=== PATIENT | male | born 1945 | race Caucasian/White ===

== ENCOUNTER 2016-06-23 06:45 | Inpatient (IN) | payer MEDICARE ==
--- NOTE | 2016-05-18 10:08 | NUR ---
PMH, allergies, meds reviewed and documented. Preop and DOS instructions given and handouts of shower instructions with CHG soap, medications to stop before surgery, Surgical Services pamphlet, and my contact information.
--- NOTE | 2016-06-17 11:01 | NUR ---
Abnormal labs shown to Dr Santoyo, including A1C of 8.6 as well as CBC, CMP from 06-02-16 and 04-29-16. Dr Santoyo wishes patient to have A1C below 7.5 before surgery and for patient to continue to take Boost and eat eggs and beans. I did notify the patient of this and set the patient up for an appointment with Dr Butler tomorrow. Dr Liriano office has also been notified.
--- NOTE | 2016-06-19 10:32 | NUR ---
Proceed with surgery Dr Santoyo notified that patient did see Dr Butler this week and after reviewing his blood sugar records from home and adjusting some medications Dr Butler has cleared the patient for surgery. Dr Santoyo notified of what his recorded blood sugar averages were as documented by Dr Butler and states it is ok to proceed with surgery on 06-23-16.
[2016-06-23] VITALS (35 sets, daily range): BP systolic 112–152; BP diastolic 55–81; PULSE 73–101; RESP 12–21; TEMP 96.7–98.6; O2SAT 91–97; Ht 176.7 cm; Wt 92.8 kg
[~2016-06-23] VITALS: Ht 176.7 cm; Wt 92.8 kg
[~2016-06-23 06:45] MED LIST: ASPI-914 PO; EMPA10TA PO; FAMOTIDINE 20mg IVPB 50 ML IV ONE; FINA5TAB42 PO; INSU100I21 SQ; INSU100I3 SQ; LATA2.5D7 BOTH EYES; LIDOCAINE 1% (10mg/ml) 2ml SDV SQ ONE; LISI-127 PO; METF10002 PO; METOCLOPRAMIDE 10mg/2ml INJECTION IV ONE; NORMAL SALINE 1,000 ML IV SCH; ROSU20TA PO; TADA5TAB PO
--- OUTSIDE RECORDS SUMMARY | 2016-06-23 06:50 | XMS REPORT | Referral Summary ---
Author Author [facility] Organization [facility] Address Unknown Phone Unavailable Care Team Providers Care Sales/Marketing Name Role Phone Josemanuel Liriano Primary Care Physician [phone] Encounter Date(s): 10/08/15 - 10/08/15 [facility] [address] [place] [address] [place] [address]- [place] Discharge Diagnosis: BPH with obstruction/lower urinary tract symptoms Discharge Diagnosis: Benign essential hypertension Discharge Diagnosis: Type II diabetes mellitus Discharge Diagnosis: Male erectile dysfunction Discharge Diagnosis: FH: hyperlipidemia Discharge Disposition: 01-Home or Self Care Attending Physician: Jonnathan Pagan JR, MD Admitting Physician: Jonnathan Pagan JR, MD Referring Physician: Pete Liriano MD Vital Signs Most recent to 1 oldest [Reference Range]: Temperature Tympanic 36.1 degC [36.6-38.1 degC] *LOW* (10/08/15 8:59 AM) Peripheral Pulse 92 bpm Rate [60-100 bpm] (10/08/15 8:59 AM) Blood Pressure 130/84 mmHg [90-140/60-90 mmHg] (10/08/15 8:59 AM) SpO2 95 % (10/08/15 8:59 AM) Problem List Condition Effective Dates Status Health Status Informant Actinic Active keratosis(Confirmed) Acute URI(Confirmed) Active Benign essential Active hypertension(Confirm ed) BPH (benign Active prostatic hypertrophy) with urinary obstruction(Confirme d) Cellulitis of Active face(Confirmed) Nephropathy, Active diabetic(Confirmed) High Active cholesterol(Confirme d) Impotence, Active organic(Confirmed) Cancer of skin of Active face(Confirmed) Combined Active hyperlipidemia(Confi rmed) Choroidal Active nevus(Confirmed) Nodular prostate Active without urinary obstruction(Confirme d) Nuclear senile Active cataract(Confirmed) Osteoarthritis(Confi Active rmed) Primary Active osteoarthritis of right knee(Confirmed) Primary open angle Active glaucoma (disorder)(Confirmed ) Prostatism(Confirmed Active ) Visit for suture Active removal(Confirmed) Diabetes mellitus Active type 2 without retinopathy(Confirme d) Diabetes mellitus Active type 2, uncontrolled(Confirm ed) Skin ulcer of face, Active limited to breakdown of skin(Confirmed) Allergies, Adverse Reactions, Alerts Substance Reaction Severity Status simvastatin unknown Active Medications acetaminophen 650 mg, Oral, QID, as needed for pain, 0 Refill(s) Start Date: 05/31/15 Status: Ordered aspirin 81 mg oral tablet 81 mg 1 tabs, Oral, Daily, 0 Refill(s) Start Date: 07/19/15 Status: Ordered Cialis 5 mg oral tablet See Instructions, TAKE ONE TABLET BY MOUTH DAILY, # 30 tabs, 8 Refill(s), eRx: [facility] #[id number], TAKE ONE TABLET BY MOUTH DAILY Start Date: 03/25/15 Status: Ordered Crestor 10 mg oral tablet 5 mg 0.5 tabs, Oral, Daily, takes it 5 days/week, # 45 tabs, 3 Refill(s) Start Date: 07/19/15 Stop Date: 07/13/16 Status: Ordered finasteride 5 mg oral tablet 5 mg 1 tabs, Oral, Daily, at bedtime, # 90 tabs, 0 Refill(s), Pharmacy: [id number], 1 tabs Oral Daily,Instr:at bedtime Start Date: 08/28/15 Status: Ordered ibuprofen 400 mg, Oral, Bedtime (once a day), for right knee pain, 0 Refill(s) Start Date: 09/23/15 Status: Ordered Levemir FlexTouch 100 units/mL subcutaneous solution See Instructions, INJECT 30 UNITS SUB-Q. INCREASE BY ONE UNIT PER DAY IF FASTING BLOOD SUGAR IS GREATER THAN 120., # 15 mL, 1 Refill(s), Pharmacy: [facility] [id number], INJECT 30 UNITS SUB-Q. INCREASE BY ONE UNIT PER DAY IF FASTING BLOOD SUGAR I... Start Date: 08/02/15 Status: Ordered lisinopril 5 mg oral tablet 5 mg 1 tabs, Oral, Daily, # 90 tabs, 3 Refill(s), Pharmacy: [facility] [id number], 1 tabs Oral Daily Start Date: 09/23/15 Status: Ordered metFORMIN 500 mg oral tablet, extended release 1,000 mg 2 tabs, Oral, Daily, # 180 tabs, 11 Refill(s), Pharmacy: [id number], 2 tabs Oral Daily,x90 days Start Date: 09/23/15 Stop Date: 09/07/18 Status: Ordered NovoLOG FlexPen 100 units/mL subcutaneous solution See Instructions, INJECT 8 UNITS THREE TIMES A DAY BEFORE MEALS/PLEASE DISPENSE A 90 DAY SUPPLY., # 30 mL, 1 Refill(s), Pharmacy: [facility] [id number], INJECT 8 UNITS THREE TIMES A DAY BEFORE MEALS/PLEASE DISPENSE A 90 DAY SUPPLY. Start Date: 08/02/15 Status: Ordered Xalatan 0.005% ophthalmic solution 1 drops, Eye-Both, Bedtime (once a day), # 2 mL, 5 Refill(s), Pharmacy: [facility] #[id number] Start Date: 11/21/14 Status: Ordered Results No data available for this section Immunizations Vaccine Date Refusal Reason tetanus/diphth/pertuss (Tdap) adult/adol 10/22/06 influenza virus vaccine, inactivated 02/06/15 influenza virus vaccine, live 01/23/13 influenza virus vaccine, live 02/23/12 pneumococcal 13-valent conjugate vaccine 01/31/14 pneumococcal 23-polyvalent vaccine 02/06/15 pneumococcal 23-polyvalent vaccine 10/22/06 tetanus-diphth toxoids (Td) adult/adol 12/28/11 tetanus-diphth toxoids (Td) adult/adol 11/14/96 zoster vaccine live 11/21/07 Procedures Procedure Date Related Diagnosis Body Site Colonoscopic polypectomy1 03/11/15 Cystoscopy 02/06/11 Transrectal needle biopsy of prostate 02/06/11 Urethral dilatation 02/06/11 Colonoscopy2 2006 Colonoscopy 2004 Inguinal herniorrhaphy - unilateral3 1995 Vasectomy 1979 Manipulation and casting of knees 1960 Surgery4 1948 1tubular adenoma 1, diverticulosis, history of prior adenomatous polyps, repeat in 5 years 2003 3left 4left hand laceration repair Social History Social History Type Response Smoking Status Former smoker; Type: Cigarettes; Tobacco use per day: Smoked 2 packs a day; Number of years: 301 1Quit in 1998 Assessment and Plan Extracted from: Title: Ambulatory Patient Education Author: Jonnathan Pagan JR, MD Date : 10/08/15 Follow Up With: Where: When: Pete Liriano [address]; [place], [place] [phone] Business (1) Within 3 to 5 days Comments: Follow Up With: Where: When: Jonnathan Pagan [address]; [place] [address] Business (1) In 1 year 10/07/2016 Comments: Extracted from: Title: Office Visit Note Author: Jonnathan Pagan JR, MD Date: 10/08/15 Assessment/Plan 1.BPH with obstruction/lower urinary tract symptoms Continue finasteride 5 mg once a day. Recheck in my office in one year. PSA a week before next visit. Ordered: Office Visit Level 3 Est 73925 2.Benign essential hypertension Continue lisinopril Ordered: Office Visit Level 3 Est 16693 3.FH: hyperlipidemia Continue Crestor 20 mg daily Ordered: Office Visit Level 3 Est 06153 4.Type II diabetes mellitus ContinuemetforminNovoLog and liver injection Ordered: Office Visit Level 3 Est 39905 5.Male erectile dysfunction Continue Cialis 5 mg daily Ordered: Office Visit Level 3 Est 72500
--- OUTSIDE RECORDS SUMMARY | 2016-06-23 06:50 | XMS REPORT | Referral Summary ---
Author Author [facility] Organization [facility] Address Unknown Phone Unavailable Care Team Providers Care Supervisor [employer]ation Name Role Phone Josemanuel Liriano Primary Care Physician [phone] Encounter VC Date(s): 09/23/15 - 09/23/15 [facility] [address] [place] [address] [[email or web address] Discharge Disposition: 01-Home or Self Care Attending Physician: Pete Liriano MD Admitting Physician: Pete Liriano MD Vital Signs Most recent to 1 oldest [Reference Range]: Temperature Tympanic 36.1 degC [36.6-38.1 degC] *LOW* (09/23/15 7:21 AM) Peripheral Pulse 100 bpm Rate [60-100 bpm] (09/23/15 7:21 AM) Blood Pressure 143/66 mmHg [90-140/60-90 mmHg] *HI* (09/23/15 7:21 AM) Problem List Condition Effective Dates Status [...] DAILY, # 30 tabs, 8 Refill(s), eRx: [facility] #[id number], TAKE ONE TABLET BY MOUTH DAILY Start Date: 03/25/15 Status: Ordered Crestor 10 mg oral tablet 5 mg 0.5 tabs, Oral, Daily, takes it 5 days/week, # 45 tabs, 3 Refill(s) Start Date: 07/19/15 Stop Date: 07/13/16 Status: Ordered finasteride 5 mg oral tablet 5 mg 1 tabs, Oral, Daily, at bedtime, # 90 tabs, 0 Refill(s), Pharmacy: [facility] [id number], 1 tabs Oral Daily,Instr:at bedtime Start Date: 08/28/15 Status: Ordered ibuprofen 400 mg, Oral, Bedtime (once a day), for right knee pain, 0 Refill(s) Start Date: 09/23/15 Status: Ordered Levemir FlexTouch 100 units/mL subcutaneous solution See Instructions, INJECT 30 UNITS SUB-Q. INCREASE BY ONE UNIT PER DAY IF FASTING BLOOD SUGAR IS GREATER THAN 120., # 15 mL, 1 Refill(s), Pharmacy: [facility] [id number], INJECT 30 UNITS SUB-Q. INCREASE BY ONE UNIT PER DAY IF FASTING BLOOD SUGAR I... Start Date: 08/02/15 Status: Ordered lisinopril 5 mg oral tablet 5 mg 1 tabs, Oral, Daily, # 90 tabs, 3 Refill(s), Pharmacy: [facility] [id number], 1 tabs Oral Daily Start Date: 09/23/15 Status: Ordered metFORMIN 500 mg oral tablet, extended release 1,000 mg 2 tabs, Oral, Daily, # 180 tabs, 11 Refill(s), Pharmacy: [facility] [id number], 2 tabs Oral Daily,x90 days Start Date: 09/23/15 Stop Date: 09/07/18 Status: Ordered NovoLOG FlexPen 100 units/mL subcutaneous solution See Instructions, INJECT 8 UNITS THREE TIMES A DAY BEFORE MEALS/PLEASE DISPENSE A 90 DAY SUPPLY., # 30 mL, 1 Refill(s), Pharmacy: [id number], INJECT 8 UNITS THREE TIMES A DAY BEFORE MEALS/PLEASE DISPENSE A 90 DAY SUPPLY. Start Date: 08/02/15 Status: Ordered Xalatan 0.005% ophthalmic solution 1 drops, Eye-Both, Bedtime (once a day), # 2 mL, 5 Refill(s), Pharmacy: [facility] #[id number] Start Date: 11/21/14 Status: Ordered Results Chemistry Most recent to 1 oldest [Reference Range]: Sodium Lvl [135-144 138 mEq/L mEq/L] (09/23/15 8:07 AM) Potassium Lvl 4.6 mEq/L [3.5-5.2 mEq/L] (09/23/15 8:07 AM) Chloride [99-111 106 mEq/L mEq/L] (09/23/15 8:07 AM) CO2 [23-31 mEq/L] 25 mEq/L (09/23/15 8:07 AM) AGAP [3-20] 7 (09/23/15 8:07 AM) BUN [8-26 mg/dL] 15 mg/dL (09/23/15 8:07 AM) Glucose Lvl [70-99 201 mg/dL mg/dL] *HI* (09/23/15 8:07 AM) Creatinine Lvl 0.93 mg/dL [0.72-1.25 mg/dL] (09/23/15 8:07 AM) eGFR [>60 mL/min] >60 mL/min 1 (09/23/15 8:07 AM) Calcium Lvl 9.7 mg/dL [8.9-10.5 mg/dL] (09/23/15 8:07 AM) Trig [0-149 mg/dL] 286 mg/dL *HI* (09/23/15 8:07 AM) Hgb A1c [4.1-5.6 %] 6.8 % *HI* (09/23/15 8:07 AM) eAvg Glucose 148.5 mg/dL (09/23/15 8:07 AM) 1Result Comment: Multiply eGFR results by 1.21 for race. Immunizations Vaccine Date Refusal Reason tetanus/diphth/pertuss (Tdap) [...] prior adenomatous polyps, repeat in 5 years 2a2003 3left 4left hand laceration repair Social History Social History Type Response Smoking Status Former smoker; Type: Cigarettes; Tobacco use per day: Smoked 2 packs a day; Number of years: 301 1Quit in 1998 Assessment and Plan Extracted from: Title: Ambulatory Patient Education Author: Pete Liriano MD Date: 09/22 Home Health Care Diabetes and Exercise Exercising regularly is important. It is not just about losing weight. It has many health benefits, such as: Improving your overall fitness, flexibility, and endurance. Increasing your bone density. Helping with weight control. Decreasing your body fat. Increasing your muscle strength. Reducing stress and tension. Improving your overall health. People with diabetes who exercise gain additional benefits because exercise: Reduces appetite. Improves the body's use of blood sugar (glucose). Helps lower or control blood glucose. Decreases blood pressure. Helps control blood lipids (such as cholesterol and triglycerides). Improves the body's use of the hormone insulin by: Increasing the body's insulin sensitivity. Reducing the body's insulin needs. Decreases the risk for heart disease because exercising: Lowers cholesterol and triglycerides levels. Increases the levels of good cholesterol (such as high-density lipoproteins [HDL]) in the body. Lowers blood glucose levels. YOUR ACTIVITY PLAN Choose an activity that you enjoy, and set realistic goals. To exercise safely, you should begin practicing any new physical activity slowly, and gradually increase the intensity of the exercise over time. Your health care provider or wellness educator can help create an activity plan that works for you. General recommendations include: Encouraging children to engage in at least 60 minutes of physical activity each day. Stretching and performing strength training exercises, such as yoga or weight lifting, at least 2 times per week. Performing a total of at least 150 minutes of moderate-intensity exercise each week, such as brisk walking or water aerobics. Exercising at least 3 days per week, making sure you allow no more than 2 consecutive days to pass without exercising. Avoiding long periods of inactivity (90 minutes or more). When you have to spend an extended period of time sitting down, take frequent breaks to walk or stretch. RECOMMENDATIONS FOR EXERCISING WITH TYPE 1 OR TYPE 2 DIABETES Check your blood glucose before exercising. If blood glucose levels are greater than 240 mg/dL, check for urine ketones. Do not exercise if ketones are present. Avoid injecting insulin into areas of the body that are going to be exercised. For example, avoid injecting insulin into: The arms when playing tennis. The legs when jogging. Keep a record of: Food intake before and after you exercise. Expected peak times of insulin action. Blood glucose levels before and after you exercise. The type and amount of exercise you have done. Review your records with your health care provider. Your health care provider will help you to develop guidelines for adjusting food intake and insulin amounts before and after exercising. If you take insulin or oral hypoglycemic agents, watch for signs and symptoms of hypoglycemia. They include: Dizziness. Shaking. Sweating. Chills. Confusion. Drink plenty of water while you exercise to prevent dehydration or heat stroke. Body water is lost during exercise and must be replaced. Talk to your health care provider before starting an exercise program to make sure it is safe for you. Remember, almost any type of activity is better than none. This information is not intended to replace advice given to you by your health care provider. Make sure you discuss any questions you have with your health care provider. Document Released: 06/18/2004 Document Revised: 04/19/2015 Document Reviewed: ExitCare Patient Information 2016 [facility]. No follow up information was provided. Extracted from: Title: diabetes, right knee pain, Author: Pete Liriano MD Date: HTN Impression and Plan Diagnosis Pain in right knee (NGP66-KP M25.561, Working, Medical). Diabetes mellitus type 2, uncontrolled (FRB01-YE E11.65, Working, Medical). Benign essential hypertension (JDJ03-KU I10, Working, Medical). Combined hyperlipidemia (LMB39-WF E78.2, Working, Medical). Diabetic nephropathy (ZYQ04-ZP E11.21, Working, Medical). Plan: 1) Stop your Ibuprofen. 2) Increase your Metformin to 2 daily. 3) Start Lisinopril 5 mg daily. 4) Check your BP at home. 5) See me back in 6 weeks and as needed. 6) Fasting lab in 2 weeks. 7) Continue your other meds the same. 8) Keep up your healthy diet and daily exercise.. Orders Orders (Selected) Outpatient Orders Ordered Office Visit Level 4 Est 78265: Future (On Hold) BMP: Hgb A1c: Triglycerides: Prescriptions Prescribed lisinopril 5 mg oral tablet: 5 mg=1 tabs, Oral, Daily, 90 tabs, 3 Refill(s) metFORMIN 500 mg oral tablet, extended release: 1,000 mg=2 tabs, Oral, Daily, for 90 days, 180 tabs, 11 Refill(s). Dx/Order Association Plan: Diagnosis: Benign essential hypertension Comment: Ordered: Office Visit Level 4 Est 26729; 09/23/15 7:46:00 CDT, Diabetes mellitus type 2, uncontrolled | Pain in right knee | Diabetic nephropathy | Benign essential hypertension | Combined hyperlipidemia Diagnosis: Combined hyperlipidemia Comment: Ordered: Office Visit Level 4 Est 37016; 09/23/15 7:46:00 CDT, Diabetes mellitus type 2, uncontrolled | Pain in right knee | Diabetic nephropathy | Benign essential hypertension | Combined hyperlipidemia Diagnosis: Diabetes mellitus type 2, uncontrolled Comment: Ordered: Office Visit Level 4 Est 73643; 09/23/15 7:46:00 CDT, Diabetes mellitus type 2, uncontrolled | Pain in right knee | Diabetic nephropathy | Benign essential hypertension | Combined hyperlipidemia Diagnosis: Diabetic nephropathy Comment: Ordered: Office Visit Level 4 Est 28773; 09/23/15 7:46:00 CDT, Diabetes mellitus type 2, uncontrolled | Pain in right knee | Diabetic nephropathy | Benign essential hypertension | Combined hyperlipidemia Diagnosis: Pain in right knee Comment: Ordered: Office Visit Level 4 Est 42704; 09/23/15 7:46:00 CDT, Diabetes mellitus type 2, uncontrolled | Pain in right knee | Diabetic nephropathy | Benign essential hypertension | Combined hyperlipidemia Diagnosis: Diabetes mellitus type 2, uncontrolled Comment: Diagnosis: Benign essential hypertension Comment: Diagnosis: Combined hyperlipidemia Comment: Additional Orders: Comment: Ordered: ibuprofen,400 mg, Oral, Bedtime (once a day), for right knee pain, 0 Refill(s) Ordered: lisinopril 5 mg oral tablet,5 mg 1 tabs, Oral, Daily, # 90 tabs, 3 Refill(s), Pharmacy: [facility] [id number], 1 tabs Oral Daily Ordered: metFORMIN 500 mg oral tablet, extended release,1,000 mg 2 tabs, Oral, Daily, # 180 tabs, 11 Refill(s), Pharmacy: [facility] [id number], 2 tabs Oral Daily,x90 days End of Orders ."
--- OUTSIDE RECORDS SUMMARY | 2016-06-23 06:50 | XMS REPORT | Referral Summary ---
Author Author [facility] Organization [facility] Address Unknown Phone Unavailable Care Team Providers Care Environmental Education Specialist Name Role Phone Josemanuel Liriano Primary Care Physician [phone] Encounter VC Date(s): 11/20/14 - 11/20/14 [facility] [address] [facility] [place] , [place] [address] Discharge Diagnosis: POAG (primary open-angle glaucoma) Discharge Diagnosis: Nuclear senile cataract Discharge Disposition: 01-Home or Self Care Attending Physician: Sridhar Harden MD Admitting Physician: Sridhar Harden MD Referring Physician: Pete Liriano MD Vital Signs No data available for this section Problem List Condition Effective Dates Status Health [...] needed for pain, 0 Refill(s) Start Date: 2/19/16 Status: Ordered aspirin 325 mg, Oral, BID, X 6 weeks, 0 Refill(s) Start Date: 05/31/15 Stop Date: 07/17/15 Status: Ordered Cialis 5 mg oral tablet See Instructions, TAKE ONE TABLET BY MOUTH DAILY, # 30 tabs, 8 Refill(s), eRx: [facility] #[id number], TAKE ONE TABLET BY MOUTH DAILY Start Date: 03/25/15 Status: Ordered Crestor 20 mg oral tablet 0.25 tabs, Oral, 3x/Wk, # 30 tabs, 0 Refill(s), Pharmacy: [facility] # [id number], 0.25 tabs Oral 3x/Wk Start Date: 05/03/14 Status: Ordered finasteride 5 mg oral tablet See Instructions, TAKE ONE TABLET BY MOUTH EVERY NIGHT AT BEDTIME, # 90 tabs, eRx: [facility] #[id number], TAKE ONE TABLET BY MOUTH EVERY NIGHT AT BEDTIME Start Date: 05/15/15 Status: Ordered Jardiance 10 mg oral tablet 10 mg 1 tabs, Oral, qAM, # 90 tabs, 3 Refill(s), Pharmacy: [facility] # [id number], 1 tabs Oral qAM Start Date: 05/10/15 Status: Ordered Levemir FlexTouch 100 units/mL subcutaneous solution See Instructions, INJECT 30 UNITS SUB-Q. INCREASE BY ONE UNIT PER DAY IF FASTING BLOOD SUGAR IS GREATER THAN 120., # 9 unknown unit, 5 Refill(s), eRx: [facility] #[id number], INJECT 30 UNITS SUB-Q. INCREASE BY ONE UNIT PER DAY IF FASTING BLOOD SUGAR... Start Date: 03/25/15 Status: Ordered lisinopril 10 mg oral tablet 10 mg 1 tabs, Oral, Daily, 0 Refill(s) Start Date: 05/31/15 Status: Ordered metFORMIN 1000 mg oral tablet 1,000 mg 1 tabs, Oral, BID, with meals, X 90 days, # 180 tabs, 3 Refill(s), Instruct patient to schedule an appt. with Dr. Liriano, 1 tabs Oral BID,Instr: with meals Start Date: 02/06/15 Stop Date: 02/01/16 Status: Ordered MiraLax 17 g, Oral, Daily, 0 Refill(s) Start Date: 05/31/15 Status: Ordered NovoLOG FlexPen 100 units/mL subcutaneous solution See Instructions, INJECT 8 UNITS THREE TIMES A DAY BEFORE MEALS, # 15 unknown unit, 2 Refill(s), eRx: [facility] #[id number], INJECT 10 UNITS THREE TIMES A DAY BEFORE MEALS Start Date: 03/25/15 Status: Ordered traMADol 50 mg oral tablet 1-2 tabs, Oral, q6hr, as needed for pain, 0 Refill(s) Start Date: 05/31/15 Status: Ordered Xalatan 0.005% ophthalmic solution 1 drops, Eye-Both, Bedtime (once a day), # 2 mL, 5 Refill(s), Pharmacy: [facility] #[id number] Start Date: 11/21/14 Status: Ordered Results No [...] 02/06/11 Urethral dilatation 02/06/11 Colonoscopy2 2006 Colonoscopy 2003 Inguinal herniorrhaphy - unilateral3 1995 Vasectomy 1979 [...] Extracted from: Title: Ambulatory Patient Education Author: Sridhar Harden MD Date: 11/20/14 Ophthalmology Glaucoma Glaucoma happens when the fluid pressure in the eyeball is too high. The pressure cannot stay high for too long, or the eyeball may become damaged. Signs of glaucoma include: Having a hard time seeing in a dark room after being in a bright one. Having trouble seeing things out to the sides of you. Blurry sight. Seeing bright white lights or colors in front of your eyes. Headaches. Feeling sick to your stomach (nauseous) or throwing up (vomiting). Sudden vision loss. Glaucoma testing is an important part of taking care of your eyesight. HOME CARE Always use your eyedrops or pills as told by your doctor. Do not run out. Do not go away from home without your eyedrops or pills. Keep your appointments. Always tell a new doctor that you have glaucoma and how long you have had it. Tell the doctor about the eyedrops and pills you take. Do not use eyedrops or pills that have not been prescribed by your doctor. GET HELP RIGHT AWAY IF: You develop severe pain in the affected eye. You develop vision problems. You develop a bad headache in the area around the eye. You feel sick to your stomach or throw up. You start to have problems with the other eye. MAKE SURE YOU: Understand these instructions. Will watch your condition. Will get help right away if you are not doing well or get worse. Document Released: 01/05/2009 Document Revised: 06/20/2012 Document Reviewed: [facility] Patient Information 2015 [employer], [place]. This information is not intended to replace advice given to you by your health care provider. Make sure you discuss any questions you have with your health care provider. No follow up information was provided. Referrals to Other Providers Referred by: Sridhar Harden MD
--- OUTSIDE RECORDS SUMMARY | 2016-06-23 06:50 | XMS REPORT | Referral Summary ---
Author Organization Unknown Address Unknown Phone Unavailable Care Team Providers Care Neighborhood Aide Name Role Phone Josemanuel Liriano Primary Care Physician [phone] Encounter [facility] [id number] Date(s): 06/04/14 - 06/04/14 Via [facility]LO Moody, Jeremy, Family Medicine [address] [place] [address] JONAS Mercedes [id number] Discharge Diagnosis: Nephropathy, diabetic Discharge Diagnosis: Benign essential hypertension Discharge Diagnosis: Combined hyperlipidemia Discharge Diagnosis: BPH (benign prostatic hypertrophy) with urinary obstruction Discharge Diagnosis: Diabetes mellitus type 2, uncontrolled Discharge Disposition: Home or Self Care Attending Physician: Pete Liriano MD Admitting Physician: Pete Liriano MD Vital Signs Most recent to 1 oldest [Reference Range]: Temperature Tympanic 35.6 degC [36.6-38.1 degC] *LOW* (06/04/14 7:07 AM) Peripheral Pulse 95 bpm Rate [60-100 bpm] (06/04/14 7:07 AM) Blood Pressure 144/77 mmHg [90-140/60-90 mmHg] *HI* (06/04/14 7:07 AM) Problem List Condition Effective Dates Status Health Status Informant Actinic Active keratosis(Confirmed) Acute URI(Confirmed) Active Benign essential Active hypertension(Confirm ed) BPH (benign Active prostatic hypertrophy) with urinary obstruction(Confirme d) Cellulitis of Active face(Confirmed) Nephropathy, Active diabetic(Confirmed) High Active cholesterol(Confirme d) Impotence, Active organic(Confirmed) Cancer of skin of Active face(Confirmed) Combined Active hyperlipidemia(Confi rmed) Nodular prostate Active without urinary obstruction(Confirme d) Nuclear senile Active cataract(Confirmed) Osteoarthritis(Confi Active rmed) Primary open angle Active glaucoma (disorder)(Confirmed ) Prostatism(Confirmed Active ) Visit for suture Active removal(Confirmed) Diabetes mellitus Active type 2, uncontrolled(Confirm ed) Skin ulcer of face, Active limited to breakdown of skin(Confirmed) Allergies, Adverse Reactions, Alerts Substance Reaction Severity Status simvastatin unknown Active Medications Aspirin Low Dose 81 mg, Oral, Daily, 0 Refill(s) Start Date: 10/02/13 Status: Ordered Cialis 5 mg oral tablet See Instructions, TAKE ONE TABLET BY MOUTH EVERY DAY, # 90 tabs, 1 Refill(s), eRx: [facility] #[id number], TAKE ONE TABLET BY MOUTH EVERY DAY Special Instructions: TAKE ONE TABLET BY MOUTH EVERY DAY Start Date: 01/22/14 Status: Ordered Crestor 20 mg oral tablet 0.25 tabs, Oral, 3x/Wk, # 30 tabs, 0 Refill(s), Pharmacy: [facility] # [id number], 0.25 tabs Oral 3x/Wk Start Date: 05/03/14 Status: Ordered famotidine 20 mg oral tablet 1 tabs, Oral, BID, as needed for indigestion, 0 Refill(s) Start Date: 10/02/13 Status: Ordered finasteride 5 mg oral tablet 1 tabs, Oral, Bedtime (once a day), # 90 tabs, 1 Refill(s), Pharmacy: [facility] #[id number], 1 tabs Oral Bedtime (once a day),x90 days Start Date: 05/03/14 Stop Date: 10/30/14 Status: Ordered Levemir FlexTouch 100 units/mL subcutaneous solution See Instructions, Inject 40 units subcutaneously every day. Increase by 1 unit daily if FBS > 140., # 15 mL, 0 Refill(s), Pharmacy: [facility] #[id number], Inject 30 units subcutaneously every day. Increase by 1 unit daily if FBS > 120. Special Instructions: Inject 40 units subcutaneously every day. Increase by 1 unit daily if FBS > 140. Start Date: 04/25/14 Status: Ordered lisinopril 20 mg oral tablet 1 tabs, Oral, Daily, 0 Refill(s) Start Date: 02/01/14 Status: Ordered metFORMIN 1000 mg oral tablet See Instructions, 1 TABS ORAL BID,INSTR:WITH MEALS, # 60 tabs, 1 Refill(s), eRx : [facility], 1 TABS ORAL BID,INSTR:WITH MEALS Special Instructions: 1 TABS ORAL BID,INSTR:WITH MEALS Start Date: 03/15/14 Status: Ordered NovoLOG FlexPen 100 units/mL subcutaneous solution 10 units, SubCutaneous, TIDAC, # 15 mL, 11 Refill(s), Pharmacy: [facility] #[id number], 10 units SubCutaneous TIDAC Start Date: 01/31/14 Status: Ordered Xalatan 0.005% ophthalmic solution 1 drops, Eye-Both, Bedtime (once a day), prescribed elsewhere, # 2 mL, 3 Refill( s), Pharmacy: [facility] Special Instructions: prescribed elsewhere Start Date: 12/18/13 Stop Date: 12/13/14 Status: Ordered Results No data available for this section Immunizations Vaccine Date Refusal Reason tetanus/diphth/pertuss (Tdap) adult/adol 10/22/06 influenza virus vaccine, live 01/23/13 influenza virus vaccine, live 02/23/12 pneumococcal 13-valent conjugate vaccine 01/31/14 pneumococcal 23-polyvalent vaccine 10/22/06 tetanus-diphth toxoids (Td) adult/adol 12/28/11 tetanus-diphth toxoids (Td) adult/adol 11/14/96 zoster vaccine live 11/21/07 Procedures Procedure Date Related Diagnosis Body Site Cystoscopy 02/06/11 Transrectal needle biopsy of prostate 02/06/11 Urethral dilatation 02/06/11 Colonoscopy1 2006 Colonoscopy 2004 Inguinal herniorrhaphy - unilateral2 1995 Vasectomy 1980 Manipulation and casting of knees 1961 Surgery3 1949 1and 2003 2left 3left hand laceration repair Social History Social History Type Response Smoking Status Former smoker; Type: Cigarettes; Tobacco use per day: Smoked 2 packs a day; Number of years: 301 1Quit in 1998 Assessment and Plan Extracted from: Title: Ambulatory Patient Education Author: Pete Liriano MD Date: 06/04 Family Medicine Diabetes and Foot Care Diabetes may cause you to have a poor blood supply (circulation ) to your legs and feet. Because of this, the skin may be thinner, break easier, and heal more slowly. You also may have nerve damage in your legs and feet causing decreased feeling. You may not notice minor injuries to your feet that could lead to serious problems or infections. Taking care of your feet is one of the most important things you can do for yourself. HOME CARE INSTRUCTIONS Do not go barefoot. Bare feet are easily injured. Check your feet daily for blisters, cuts, and redness. Wash your feet with warm water (not hot) and mild soap. Pat your feet and between your toes until completely dry. Apply a moisturizing lotion that does not contain alcohol or petroleum jelly to the dry skin on your feet and to dry brittle toenails. Do not put it between your toes. Trim your toenails straight across. Do not dig under them or around the cuticle. Do not cut corns or calluses, or try to remove them with medicine. Wear clean cotton socks or stockings every day. Make sure they are not too tight. Do not wear knee high stockings since they may decrease blood flow to your legs. Wear leather shoes that fit properly and have enough cushioning. To break in new shoes, wear them just a few hours a day to avoid injuring your feet. Wear shoes at all times, even in the house. Do not cross your legs. This may decrease the blood flow to your feet. If you find a minor scrape, cut, or break in the skin on your feet, keep it and the skin around it clean and dry. These areas may be cleansed with mild soap and water. Do not use peroxide, alcohol, iodine or Merthiolate. When you remove an adhesive bandage, be sure not to harm the skin around it. If you have a wound, look at it several times a day to make sure it is healing. Do not use heating pads or hot water bottles. [place] can occur. If you have lost feeling in your feet or legs, you may not know it is happening until it is too late. Report any cuts, sores or bruises to your caregiver. Do not wait! SEEK MEDICAL CARE IF: You have an injury that is not healing or you notice redness, numbness, burning, or tingling. Your feet always feel cold. You have pain or cramps in your legs and feet. SEEK IMMEDIATE MEDICAL CARE IF: There is increasing redness, swelling, or increasing pain in the wound. There is a red line that goes up your leg. Pus is coming from a wound. You develop an unexplained oral temperature above 102 F (38.9 C), or as your caregiver suggests. You notice a bad smell coming from an ulcer or wound. MAKE SURE YOU: Understand these instructions. Will watch your condition. Will get help right away if you are not doing well or get worse. Document Released: 03/26/2001 Document Revised: 06/20/2012 Document Reviewed: ExitCare Patient Information 2014 [facility]. No follow up information was provided. Extracted from: Title: DM, HTN Author: Pete Liriano MD Date: 06/04/14 Impression and Plan Diagnosis Nephropathy, diabetic (ICD9 250.40, Discharge, Medical). Diabetes mellitus type 2, uncontrolled (ICD9 250.02, Discharge, Medical). Combined hyperlipidemia (ICD9 272.2, Discharge, Medical). BPH (benign prostatic hypertrophy) with urinary obstruction (ICD9 600.01, Discharge, Medical). Benign essential hypertension (ICD9 401.1, Discharge, Medical). Plan: Continue healthy diet and exercise. Continue your current meds. See me in 2 months and as needed.. Orders Orders (Selected) Outpatient Orders Ordered Office Visit Level 4 Est [id number]: . Dx/Order Association Plan: Diagnosis: BPH (benign prostatic hypertrophy) with urinary obstruction Comment: Ordered: Office Visit Level 4 Est [id number]; 06/04/14 7:29:00 [employer], Diabetes mellitus type 2, uncontrolled | Combined hyperlipidemia | Benign essential hypertension | Nephropathy, diabetic | BPH (benign prostatic hypertrophy) with urinary obstruction Diagnosis: Benign essential hypertension Comment: Ordered: Office Visit Level 4 Est [id number]; 06/04/14 7:29:00 [employer], Diabetes mellitus type 2, uncontrolled | Combined hyperlipidemia | Benign essential hypertension | Nephropathy, diabetic | BPH (benign prostatic hypertrophy) with urinary obstruction Diagnosis: Combined hyperlipidemia Comment: Ordered: Office Visit Level 4 Est [id number]; 06/04/14 7:29:00 [employer], Diabetes mellitus type 2, uncontrolled | Combined hyperlipidemia | Benign essential hypertension | Nephropathy, diabetic | BPH (benign prostatic hypertrophy) with urinary obstruction Diagnosis: Diabetes mellitus type 2, uncontrolled Comment: Ordered: Office Visit Level 4 Est [id number]; 06/04/14 7:29:00 [employer] ATT[employer], Diabetes mellitus type 2, uncontrolled | Combined hyperlipidemia | Benign essential hypertension | Nephropathy, diabetic | BPH (benign prostatic hypertrophy) with urinary obstruction Diagnosis: Nephropathy, diabetic Comment: Ordered: Office Visit Level 4 Est [id number]; 06/04/14 7:29:00 [employer] ATT[employer], Diabetes mellitus type 2, uncontrolled | Combined hyperlipidemia | Benign essential hypertension | Nephropathy, diabetic | BPH (benign prostatic hypertrophy) with urinary obstruction End of Orders ."
--- OUTSIDE RECORDS SUMMARY | 2016-06-23 06:50 | XMS REPORT | Referral Summary ---
Author Author [facility] Organization [facility] Address Unknown Phone Unavailable Care Team Providers Care Horologist Name Role Phone Josemanuel Liriano Primary Care Physician [phone] Encounter Date(s): 04/29/16 - 04/29/16 [facility] [address] [place] [id number] Discharge Diagnosis: Mixed hyperlipidemia Discharge Diagnosis: Left ankle pain Discharge Diagnosis: Right knee pain Discharge Diagnosis: Male erectile dysfunction Discharge Diagnosis: Benign essential hypertension Discharge Diagnosis: Effusion of right knee Discharge Diagnosis: Diabetes mellitus type 2 without retinopathy Discharge Disposition: 01-Home or Self Care Attending Physician: Pete Liriano MD Admitting Physician: Pete Liriano MD Vital Signs Most recent to 1 oldest [Reference Range]: Temperature Tympanic 36.0 degC [36.6-38.1 degC] *LOW* (04/29/16 8:16 AM) Peripheral Pulse 92 bpm Rate [60-100 bpm] (04/29/16 8:16 AM) Respiratory Rate 16 br/min [14-20 br/min] (04/29/16 8:16 AM) Blood Pressure 142/74 mmHg [90-140/60-90 mmHg] *HI* (04/29/16 8:16 AM) Problem List Condition Effective Dates Status [...] 0 Refill(s) Start Date: 07/19/15 Status: Ordered Crestor 10 mg oral tablet 5 mg 0.5 tabs, Oral, Daily, takes it 5 days/week, # 45 tabs, 3 Refill(s) Start Date: 07/19/15 Stop Date: 07/13/16 Status: Ordered finasteride 5 mg oral tablet 5 mg 1 tabs, Oral, Bedtime (once a day), # 90 tabs, 0 Refill(s), Pharmacy: [facility] [id number], 1 tabs Oral Bedtime (once a day) Start Date: 04/15/16 Status: Ordered ibuprofen 400 mg, Oral, Bedtime (once a day), for right knee pain, 0 Refill(s) Start Date: 09/23/15 Status: Ordered Levemir FlexTouch 100 units/mL subcutaneous solution See Instructions, INJECT 30 UNITS SUB-Q, INCREASE BY 1 UNIT PER DAY IF FASTING BLOOD SUGAR IS GREATER THAN 120, # 15 mL, eRx: [id number] Start Date: 04/21/16 Status: Ordered lisinopril 5 mg oral tablet 5 mg 1 tabs, Oral, Daily, # 90 tabs, 3 Refill(s), Pharmacy: [facility] [id number], 1 tabs Oral Daily Start Date: 09/23/15 Status: Ordered metFORMIN 500 mg oral tablet, extended release 1,000 mg 2 tabs, Oral, Daily, # 180 tabs, 11 Refill(s), Pharmacy: [facility] [id number], 2 tabs Oral Daily,x90 days Start Date: 09/23/15 Stop Date: 09/07/18 Status: Ordered NovoLOG FlexPen 100 units/mL subcutaneous solution See Instructions, INJECT 8 UNITS THREE TIMES A DAY BEFORE MEALS/PLEASE DISPENSE A 90 DAY SUPPLY., # 30 mL, 1 Refill(s), Pharmacy: [id number], INJECT 8 UNITS THREE TIMES A DAY BEFORE MEALS/PLEASE DISPENSE A 90 DAY SUPPLY. Start Date: 08/02/15 Status: Ordered Xalatan 0.005% ophthalmic solution 1 drops, Eye-Both, Bedtime (once a day), # 2 mL, 5 Refill(s), Pharmacy: [facility] #[id number] Start Date: 11/21/14 Status: Ordered Results Hematology Most recent to 1 oldest [Reference Range]: WBC [5.0-10.0 5.3 10*3/uL 10*3/uL] (04/29/16 8:25 AM) RBC [3.70-5.20] 5.55 *HI* (04/29/16 8:25 AM) Hgb [12.0-16.0 17.2 gm/dL gm/dL] *HI* (04/29/16 8:25 AM) Hct [40.0-54.0 %] 49.5 % (04/29/16 8:25 AM) MCV [80.0-96.0 fL] 89.2 fL (04/29/16 8:25 AM) MCH [26.0-34.0 pg] 31.0 pg (04/29/16 8:25 AM) MCHC [32.0-36.0 34.7 gm/dL gm/dL] (04/29/16 8:25 AM) RDW [0.0-14.5 %] 13.2 % (04/29/16 8:25 AM) Platelet [150-400 192 10*3/uL 10*3/uL] (04/29/16 8:25 AM) MPV [8.8-14.8 fL] 10.8 fL (04/29/16 8:25 AM) Neutrophils [50-70 71 % %] *HI* (04/29/16 8:25 AM) Lymphocytes [20-40 19 % %] *LOW* (04/29/16 8:25 AM) Monocytes [4-8 %] 7 % (04/29/16 8:25 AM) Eosinophils [0-6 %] 3 % (04/29/16 8:25 AM) Basophils [0-2 %] 0 % (04/29/16 8:25 AM) Neutro Absolute 3.78 [2.50-7.00] (04/29/16 8:25 AM) Lymph Absolute 1.00 [1.00-4.00] (04/29/16 8:25 AM) [place] Absolute 0.35 [0.20-0.80] (04/29/16 8:25 AM) Eos Absolute 0.17 [0.00-0.60] (04/29/16 8:25 AM) Baso Absolute 0.02 [0.00-0.30] (04/29/16 8:25 AM) Sed Rate [0-15] 7 (04/29/16 8:25 AM) Chemistry Most recent to 1 oldest [Reference Range]: Sodium Lvl [135-144 137 mEq/L mEq/L] (04/29/16 8:25 AM) Potassium Lvl 4.6 mEq/L [3.5-5.2 mEq/L] (04/29/16 8:25 AM) Chloride [99-111 102 mEq/L mEq/L] (04/29/16 8:25 AM) CO2 [23-31 mEq/L] 25 mEq/L (04/29/16 8:25 AM) AGAP [3-20] 10 (04/29/16 8:25 AM) BUN [8-26 mg/dL] 11 mg/dL (04/29/16 8:25 AM) Glucose Lvl [70-99 251 mg/dL mg/dL] *HI* (04/29/16 8:25 AM) Creatinine Lvl 0.79 mg/dL [0.72-1.25 mg/dL] (04/29/16 8:25 AM) eGFR [>60 mL/min] >60 mL/min 1 (04/29/16 8:25 AM) Calcium Lvl 9.8 mg/dL [8.9-10.5 mg/dL] (04/29/16 8:25 AM) Albumin Lvl [3.4-4.8 4.2 gm/dL gm/dL] (04/29/16 8:25 AM) Total Protein 6.4 gm/dL [6.0-7.6 gm/dL] (04/29/16 8:25 AM) Globulin [1.8-4.0 2.2 gm/dL gm/dL] (04/29/16 8:25 AM) ALT [0-55 U/L] 31 U/L (04/29/16 8:25 AM) AST [5-34 U/L] 17 U/L (04/29/16 8:25 AM) Alk Phos [40-150 95 U/L U/L] (04/29/16 8:25 AM) Bili Total [0.2-1.2 0.8 mg/dL mg/dL] (04/29/16 8:25 AM) Uric Acid [3.5-7.2 3.6 mg/dL mg/dL] (04/29/16 8:25 AM) LDL Direct [0-129 113 mg/dL mg/dL] (04/29/16 8:25 AM) Hgb A1c [4.1-5.6 %] 8.9 % *HI* (04/29/16 8:25 AM) eAvg Glucose 208.7 mg/dL (04/29/16 8:25 AM) 1Result Comment: Multiply eGFR results by 1.21 for race. Immunizations Given and Recorded Vaccine Date Status Refusal Reason tetanus/diphth/pertuss (Tdap) adult/adol 10/22/06 Recorded influenza virus vaccine, inactivated1 01/27/16 Recorded influenza virus vaccine, inactivated 02/06/15 Given influenza virus vaccine, live 01/23/13 Given influenza virus vaccine, live 02/23/12 Given pneumococcal 13-valent conjugate vaccine 01/31/14 Given pneumococcal 23-polyvalent vaccine 02/06/15 Given pneumococcal 23-polyvalent vaccine 10/22/06 Recorded tetanus-diphth toxoids (Td) adult/adol 12/28/11 Given tetanus-diphth toxoids (Td) adult/adol 11/14/96 Given zoster vaccine live 11/21/07 Given 1Result Comment: [01/28/2016] Jason--High dose Procedures Procedure Date Related Diagnosis Body Site Colonoscopic polypectomy1 11/30/15 Cystoscopy 02/06/11 Transrectal needle biopsy of prostate 02/06/11 Urethral dilatation 02/06/11 Colonoscopy2 2006 Colonoscopy 2004 Inguinal herniorrhaphy - unilateral3 1996 Vasectomy 1979 Manipulation and casting of knees 196 Surgery4 1948 1tubular adenoma 1, diverticulosis, history of prior adenomatous polyps, repeat in 5 years 2a2003 3left 4left hand laceration repair Social History Social History Type Response Smoking Status Former smoker; Type: Cigarettes; Tobacco use per day: Smoked 2 packs a day; Number of years: 301 1Quit in 1998 Assessment and Plan Extracted from: Title: Ambulatory Patient Education Author: Pete Liriano MD Date: 04/29 Family Medicine Arthritis, Nonspecific Arthritis is inflammation of a joint. This usually means pain, redness, warmth or swelling are present. One or more joints may be involved. There are a number of types of arthritis. Your caregiver may not be able to tell what type of arthritis you have right away. CAUSES The most common cause of arthritis is the wear and tear on the joint ( osteoarthritis). This causes damage to the cartilage, which can break down over time. The knees, hips, back and neck are most often affected by this type of arthritis. Other types of arthritis and common causes of joint pain include: Sprains and other injuries near the joint. Sometimes minor sprains and injuries cause pain and swelling that develop hours later. Rheumatoid arthritis. This affects hands, feet and knees. It usually affects both sides of your body at the same time. It is often associated with chronic ailments, fever, weight loss and general weakness. Crystal arthritis. Gout and pseudo gout can cause occasional acute severe pain, redness and swelling in the foot, ankle, or knee. Infectious arthritis. Bacteria can get into a joint through a break in overlying skin. This can cause infection of the joint. Bacteria and viruses can also spread through the blood and affect your joints. Drug, infectious and allergy reactions. Sometimes joints can become mildly painful and slightly swollen with these types of illnesses. SYMPTOMS Pain is the main symptom. Your joint or joints can also be red, swollen and warm or hot to the touch. You may have a fever with certain types of arthritis, or even feel overall ill. The joint with arthritis will hurt with movement. Stiffness is present with some types of arthritis. DIAGNOSIS Your caregiver will suspect arthritis based on your description of your symptoms and on your exam. Testing may be needed to find the type of arthritis: Blood and sometimes urine tests. X-ray tests and sometimes CT or MRI scans. Removal of fluid from the joint (arthrocentesis) is done to check for bacteria, crystals or other causes. Your caregiver (or a specialist) will numb the area over the joint with a local anesthetic, and use a needle to remove joint fluid for examination. This procedure is only minimally uncomfortable. Even with these tests, your caregiver may not be able to tell what kind of arthritis you have. Consultation with a specialist (special events fundraiser) may be helpful. TREATMENT Your caregiver will discuss with you treatment specific to your type of arthritis. If the specific type cannot be determined, then the following general recommendations may apply. Treatment of severe joint pain includes: Rest. Elevation. Anti-inflammatory medication (for example, ibuprofen) may be prescribed. Avoiding activities that cause increased pain. Only take nmeg-zvu-[id number] or prescription medicines for pain and discomfort as recommended by your caregiver. Cold packs over an inflamed joint may be used for 10 to 15 minutes every hour. Hot packs sometimes feel better, but do not use overnight. Do not use hot packs if you are diabetic without your caregiver's permission. A cortisone shot into arthritic joints may help reduce pain and swelling. Any acute arthritis that gets worse over the next 1 to 2 days needs to be looked at to be sure there is no joint infection. Long-term arthritis treatment involves modifying activities and lifestyle to reduce joint stress jarring. This can include weight loss. Also, exercise is needed to nourish the joint cartilage and remove waste. This helps keep the muscles around the joint strong. HOME CARE INSTRUCTIONS Do not take aspirin to relieve pain if gout is suspected. This elevates uric acid levels. Only take lhxt-aaf-bsxzqor or prescription medicines for pain, discomfort or fever as directed by your caregiver. Rest the joint as much as possible. If your joint is swollen, keep it elevated. Use crutches if the painful joint is in your leg. Drinking plenty of fluids may help for certain types of arthritis. Follow your caregiver's dietary instructions. Try low-impact exercise such as: Swimming. Water aerobics. Biking. Walking. Morning stiffness is often relieved by a warm shower. Put your joints through regular mgsrl-jb-lwqmyk. SEEK MEDICAL CARE IF: You do not feel better in 24 hours or are getting worse. You have side effects to medications, or are not getting better with treatment. SEEK IMMEDIATE MEDICAL CARE IF: You have a fever. You develop severe joint pain, swelling or redness. Many joints are involved and become painful and swollen. There is severe back pain and/or leg weakness. You have loss of bowel or bladder control. This information is not intended to replace advice given to you by your health care provider. Make sure you discuss any questions you have with your health care provider. Document Released: 05/06/2005 Document Revised: 04/19/2015 Document Reviewed: BPT Interactive Patient Education 2016 [employer] Musculoskeletal Ankle Pain Ankle pain is a common symptom. The bones, cartilage, tendons, and muscles of the ankle joint perform a lot of work each day. The ankle joint holds your body weight and allows you to move around. Ankle pain can occur on either side or back of 1 or both ankles. Ankle pain may be sharp and burning or dull and aching. There may be tenderness, stiffness, redness, or warmth around the ankle. The pain occurs more often when a person walks or puts pressure on the ankle. CAUSES There are many reasons ankle pain can develop. It is important to work with your caregiver to identify the cause since many conditions can impact the bones , cartilage, muscles, and tendons. Causes for ankle pain include: Injury, including a break (fracture), sprain, or strain often due to a fall, sports, or a high-impact activity. Swelling (inflammation) of a tendon (tendonitis). Achilles tendon rupture. Ankle instability after repeated sprains and strains. Poor foot alignment. Pressure on a nerve (tarsal tunnel syndrome). Arthritis in the ankle or the lining of the ankle. Crystal formation in the ankle (gout or pseudogout). DIAGNOSIS A diagnosis is based on your medical history, your symptoms, results of your physical exam, and results of diagnostic tests. Diagnostic tests may include X- ray exams or a computerized magnetic scan (magnetic resonance imaging, MRI). TREATMENT Treatment will depend on the cause of your ankle pain and may include: Keeping pressure off the ankle and limiting activities. Using crutches or other walking support (a cane or brace). Using rest, ice, compression, and elevation. Participating in physical therapy or home exercises. Wearing shoe inserts or special shoes. Losing weight. Taking medications to reduce pain or swelling or receiving an injection. Undergoing surgery. HOME CARE INSTRUCTIONS Only take yksz-xka-aymlxpg or prescription medicines for pain, discomfort , or fever as directed by your caregiver. Put ice on the injured area. Put ice in a plastic bag. Place a towel between your skin and the bag. Leave the ice on for 15-20 minutes at a time, 03-04 times a day. Keep your leg raised (elevated) when possible to lessen swelling. Avoid activities that cause ankle pain. Follow specific exercises as directed by your caregiver. Record how often you have ankle pain, the location of the pain, and what it feels like. This information may be helpful to you and your caregiver. Ask your caregiver about returning to work or sports and whether you should drive. Follow up with your caregiver for further examination, therapy, or testing as directed. SEEK MEDICAL CARE IF: Pain or swelling continues or worsens beyond 1 week. You have an oral temperature above 102 F (38.9 C). You are feeling unwell or have chills. You are having an increasingly difficult time with walking. You have loss of sensation or other new symptoms. You have questions or concerns. MAKE SURE YOU: Understand these instructions. Will watch your condition. Will get help right away if you are not doing well or get worse. This information is not intended to replace advice given to you by your health care provider. Make sure you discuss any questions you have with your health care provider. Document Released: 09/16/2010 Document Revised: 06/20/2012 Document Reviewed: BPT Interactive Patient Education 2016 [employer] No follow up information was provided. Extracted from: Title: multiple problems Author: Pete Liriano MD Date: 04/29/16 Impression and Plan Diagnosis Left ankle pain ([id number] M25.572, Discharge, Medical). Right knee pain (QZT10-AU M25.561, Discharge, Medical). Male erectile dysfunction (ZPP62-VR N52.9, Discharge, Medical). Benign essential hypertension (MJZ39-XE I10, Discharge, Medical). Diabetes mellitus type 2 without retinopathy (RIM83-OX E11.9, Discharge, Medical ). Effusion of right knee (FVT39-ZI M25.461, Discharge, Medical). Plan: 1) Xrays ordered of the right knee and the left ankle. 2) See Dr. Santoyo, or his PA for the right knee pain and effusion. 3) Lab ordered today. 4) Viagra prescribed for your ED, per your request. 5) No changes made to your other medication at this time. 6) See me for a physical in one month, and as needed.. Orders Orders (Selected) Outpatient Orders Ordered Office Visit Level 4 Est 07851: Future (On Hold) Albumin/Creatinine Ratio, Urine: Ankle XR Complete Left: CBC w/ Differential: CMP: CRP C-Reactive Protein: ESR: Hgb A1c: Knee XR Complete Right: LDL Direct: Uric Acid: Prescriptions Discontinued Viagra 100 mg oral tablet: 100 mg=1 tabs, Oral, Daily, 1 hour before sexual activity. Not to exceed 2 tabs weekly., PRN: as needed for intercourse, 10 tabs , 5 Refill(s). Dx/Order Association Plan: Diagnosis: Benign essential hypertension Comment: Ordered: Office Visit Level 4 Est [id number]; 04/29/16 8:10:00 CHARGING MANIPULATOR, Left ankle pain | Right knee pain | Effusion of right knee | Male erectile dysfunction | Diabetes mellitus type 2 without retinopathy | Benign essential hypertension Diagnosis: Diabetes mellitus type 2 without retinopathy Comment: Ordered: Office Visit Level 4 Est [id number]; 04/29/16 8:10:00 CHARGING MANIPULATOR, Left ankle pain | Right knee pain | Effusion of right knee | Male erectile dysfunction | Diabetes mellitus type 2 without retinopathy | Benign essential hypertension Diagnosis: Effusion of right knee Comment: Ordered: Office Visit Level 4 Est [id number]; 04/29/16 8:10:00 CHARGING MANIPULATOR, Left ankle pain | Right knee pain | Effusion of right knee | Male erectile dysfunction | Diabetes mellitus type 2 without retinopathy | Benign essential hypertension Diagnosis: Left ankle pain Comment: Ordered: Office Visit Level 4 Est 91005; 04/29/16 8:10:00 CHARGING MANIPULATOR, Left ankle pain | Right knee pain | Effusion of right knee | Male erectile dysfunction | Diabetes mellitus type 2 without retinopathy | Benign essential hypertension Diagnosis: Male erectile dysfunction Comment: Ordered: Office Visit Level 4 Est 50661; 04/29/16 8:10:00 CHARGING MANIPULATOR, Left ankle pain | Right knee pain | Effusion of right knee | Male erectile dysfunction | Diabetes mellitus type 2 without retinopathy | Benign essential hypertension Diagnosis: Mixed hyperlipidemia Comment: Diagnosis: Right knee pain Comment: Ordered: Office Visit Level 4 Est [id number]; 04/29/16 8:10:00 CHARGING MANIPULATOR, Left ankle pain | Right knee pain | Effusion of right knee | Male erectile dysfunction | Diabetes mellitus type 2 without retinopathy | Benign essential hypertension Diagnosis: Right knee pain Comment: Diagnosis: Effusion of right knee Comment: Diagnosis: Diabetes mellitus type 2 without retinopathy Comment: Diagnosis: Benign essential hypertension Comment: Diagnosis: Diabetes mellitus type 2 without retinopathy Comment: Diagnosis: Mixed hyperlipidemia Comment: Diagnosis: Right knee pain Comment: Diagnosis: Effusion of right knee Comment: Diagnosis: Right knee pain Comment: Diagnosis: Effusion of right knee Comment: Diagnosis: Diabetes mellitus type 2 without retinopathy Comment: Diagnosis: Right knee pain Comment: Diagnosis: Effusion of right knee Comment: Diagnosis: Left ankle pain Comment: Diagnosis: Right knee pain Comment: Diagnosis: Effusion of right knee Comment: Diagnosis: Diabetes mellitus type 2 without retinopathy Comment: Diagnosis: Mixed hyperlipidemia Comment: Diagnosis: Left ankle pain Comment: Additional Orders: Comment: Discontinued: Viagra 100 mg oral tablet,100 mg 1 tabs, Oral, Daily , as needed for intercourse, 1 hour before sexual activity. Not to exceed 2 tabs weekly., # 10 tabs, 5 Refill(s) End of Orders ."
--- OUTSIDE RECORDS SUMMARY | 2016-06-23 06:50 | XMS REPORT | Referral Summary ---
Author Author [facility] Organization [facility] Address Unknown Phone Unavailable Care Team Providers Care Reliability Technicians Name Role Phone Josemanuel Liriano Primary Care Physician [phone] Encounter VC Date(s): 11/20/14 - 11/20/14 [facility] [address] [facility] [place] , [place] [id number] Discharge Diagnosis: POAG (primary open-angle glaucoma) Discharge [...] mg, Oral, Daily, 0 Refill(s) Start Date: 6/23/14 Status: Ordered Cialis 5 mg oral tablet 5 mg 1 tabs, Oral, Daily, # 30 tabs, 1 Refill(s), Pharmacy: [facility] # [id number], 1 tabs Oral Daily Start Date: 12/28/14 Status: Ordered Crestor 20 mg oral tablet 0.25 tabs, Oral, 3x/Wk, # 30 tabs, 0 Refill(s), Pharmacy: [facility] # [id number], 0.25 tabs Oral 3x/Wk Start Date: 05/03/14 Status: Ordered finasteride 5 mg oral tablet 5 mg 1 tabs, Oral, Bedtime (once a day), # 90 tabs, 0 Refill(s), Pharmacy: [facility] #[id number], 1 tabs Oral Bedtime (once a day),x90 days Start Date: 02/01/15 Stop Date: 05/02/15 Status: Ordered Levemir FlexTouch 100 units/mL subcutaneous solution See Instructions, INJECT 30 UNITS UNDER THE SKIN DAILY - INCREASE BY 1 UNIT DAILY IF FASTING BLOOD SUGAR IS GREATER THAN 120., # 15 unknown unit, eRx: [facility] #[id number], INJECT 30 UNITS UNDER THE SKIN DAILY - INCREASE BY 1 UNIT DAILY IF FASTING... Start Date: 01/02/15 Status: Ordered lisinopril 20 mg oral tablet 1 tabs, Oral, Daily, 0 Refill(s) Start Date: 02/01/14 Status: Ordered metFORMIN 1000 mg oral tablet 1,000 mg 1 tabs, Oral, BID, with meals, X 90 days, # 180 tabs, 3 Refill(s), Instruct patient to schedule an appt. with Dr. Liriano, 1 tabs Oral BID,Instr: with meals Start Date: 02/06/15 Stop Date: 02/01/16 Status: Ordered Motrin PM 2 tabs, Oral, Bedtime (once a day), 0 Refill(s) Start Date: 02/06/15 Status: Ordered NovoLOG FlexPen 100 units/mL subcutaneous solution 10 units, SubCutaneous, TIDAC, # 15 mL, 11 Refill(s), Pharmacy: [facility] #[id number], 10 units SubCutaneous TIDAC Start Date: 01/31/14 Status: Ordered Xalatan 0.005% ophthalmic solution 1 drops, Eye-Both, Bedtime (once a day), # 2 mL, 5 Refill(s), Pharmacy: [facility] #[id number] Start Date: 11/21/14 Status: Ordered Results No [...] of prostate 02/06/11 Urethral dilatation 02/06/11 Colonoscopy1 2007 Colonoscopy 2004 Inguinal herniorrhaphy - unilateral2 1995 [...] Released: 01/05/2009 Document Revised: 06/20/2012 Document Reviewed: [employer]Care Patient Information 2015 [email or web address] This information is not intended to replace advice given to you by your health care provider. Make sure you discuss any questions you have with your health care provider. No follow up information was provided. Referrals to Other Providers Referred by: Sridhar Harden MD
--- OUTSIDE RECORDS SUMMARY | 2016-06-23 06:51 | XMS REPORT | Referral Summary ---
Author Organization Unknown Address Unknown Phone Unavailable Care Team Providers Care Manufacturing Engineer Chief Name Role Phone Josemanuel Liriano Primary Care Physician [phone] Encounter VC Date(s): 05/03/14 - 05/03/14 [facility], Jeremy, Family [address] [place] [address] Discharge Diagnosis: Combined hyperlipidemia Discharge Diagnosis: Skin ulcer of face, limited to breakdown of skin Discharge Diagnosis: Benign essential hypertension Discharge Diagnosis: Acute URI Discharge Diagnosis: Prostatism Discharge Diagnosis: Diabetes mellitus type 2, uncontrolled Discharge Disposition: Home or Self Care Attending Physician: Pete Liriano MD Admitting Physician: Pete Liriano MD Vital Signs Most recent to 1 oldest [Reference Range]: Temperature Tympanic 36.2 degC [36.6-38.1 degC] *LOW* (05/03/14 8:21 AM) Peripheral Pulse 108 bpm Rate [60-100 bpm] *HI* (05/03/14 8:21 AM) Blood Pressure 136/66 mmHg [90-140/60-90 mmHg] (05/03/14 8:21 AM) Problem List Condition Effective Dates Status Health Status Informant Actinic Active keratosis(Confirmed) Acute URI(Confirmed) Active Benign essential Active hypertension(Confirm ed) BPH (benign Active prostatic hypertrophy) with urinary obstruction(Confirme d) Cellulitis of Active face(Confirmed) High Active cholesterol(Confirme d) Impotence, Active organic(Confirmed) Combined Active hyperlipidemia(Confi rmed) Nodular prostate Active without urinary obstruction(Confirme d) Nuclear senile Active cataract(Confirmed) Osteoarthritis(Confi Active rmed) Primary open angle Active glaucoma (disorder)(Confirmed ) Prostatism(Confirmed Active ) Diabetes mellitus Active type 2, uncontrolled(Confirm ed) Skin ulcer of face, Active limited to breakdown of skin(Confirmed) Allergies, Adverse Reactions, Alerts Substance Reaction Severity Status simvastatin unknown Active Medications Aspirin Low Dose 81 mg, Oral, Daily, 0 Refill(s) Start Date: 10/02/13 Status: Ordered Cialis 5 mg oral tablet See Instructions, TAKE ONE TABLET BY MOUTH EVERY DAY, # 90 tabs, 1 Refill(s), eRx: [facility] #[id number], TAKE ONE TABLET BY MOUTH EVERY DAY Special Instructions: TAKE ONE TABLET BY MOUTH EVERY DAY Start Date: 01/22/14 Status: Ordered Crestor 20 mg oral tablet 0.25 tabs, Oral, 3x/Wk, # 30 tabs, 0 Refill(s), Pharmacy: [facility] # [id number], 0.25 tabs Oral 3x/Wk Start Date: 05/03/14 Status: Ordered famotidine 20 mg oral tablet 1 tabs, Oral, BID, as needed for indigestion, 0 Refill(s) Start Date: 10/02/13 Status: Ordered finasteride 5 mg oral tablet 1 tabs, Oral, Bedtime (once a day), # 90 tabs, 1 Refill(s), Pharmacy: [facility] #[id number], 1 tabs Oral Bedtime (once a day),x90 days Start Date: 05/03/14 Stop Date: 10/30/14 Status: Ordered Levemir FlexTouch 100 units/mL subcutaneous solution See Instructions, Inject 30 units subcutaneously every day. Increase by 1 unit daily if FBS > 120., # 15 mL, 0 Refill(s), Pharmacy: [facility] #[id number], Inject 30 units subcutaneously every day. Increase by 1 unit daily if FBS > 120. Special Instructions: Inject 30 units subcutaneously every day. Increase by 1 unit daily if FBS > 120. Start Date: 04/25/14 Status: Ordered lisinopril 20 [...] TIDAC, # 15 mL, 11 Refill(s), Pharmacy: [facility] #[id number], 10 units SubCutaneous TIDAC Start Date: 01/31/14 Status: Ordered Xalatan 0.005% ophthalmic solution 1 drops, Eye-Both, Bedtime (once a day), prescribed elsewhere, # 2 mL, 3 Refill( s), Pharmacy: [facility] Special Instructions: prescribed elsewhere Start Date: 12/18/13 Stop Date: 12/13/14 Status: Ordered Results Chemistry Most recent to 1 oldest [Reference Range]: Sodium Lvl [135-144 138 mEq/L mEq/L] (05/03/14 9:10 AM) Potassium Lvl 4.5 mEq/L [3.5-5.2 mEq/L] (05/03/14 9:10 AM) Chloride [99-111 104 mEq/L mEq/L] (05/03/14 9:10 AM) CO2 [23-31 mEq/L] 24 mEq/L (05/03/14 9:10 AM) AGAP [3-20] 10 (05/03/14 9:10 AM) BUN [8-26 mg/dL] 13 mg/dL (05/03/14 9:10 AM) Glucose Lvl [70-99 275 mg/dL mg/dL] *HI* (05/03/14 9:10 AM) Creatinine Lvl 0.90 mg/dL [0.72-1.25 mg/dL] (05/03/14 9:10 AM) eGFR [>60 mL/min] >60 mL/min 1 (05/03/14 9:10 AM) Calcium Lvl 10.3 mg/dL [8.9-10.5 mg/dL] (05/03/14 9:10 AM) Albumin Lvl [3.4-4.8 4.3 gm/dL gm/dL] (05/03/14 9:10 AM) Total Protein 7.0 gm/dL [6.2-8.1 gm/dL] (05/03/14 9:10 AM) Globulin [1.8-4.0 2.7 gm/dL gm/dL] (05/03/14 9:10 AM) ALT [0-55 unit/L] 26 unit/L (05/03/14 9:10 AM) AST [5-34 unit/L] 15 unit/L (05/03/14 9:10 AM) Alk Phos [40-150 115 unit/L unit/L] (05/03/14 9:10 AM) Bili Total [0.2-1.2 0.7 mg/dL mg/dL] (05/03/14 9:10 AM) Hgb A1c [4.1-5.6 %] 9.9 % *HI* (05/03/14 9:10 AM) eAvg Glucose 237.4 mg/dL (05/03/14 9:10 AM) 1Result Comment: Multiply eGFR results by [...] 2004 Inguinal herniorrhaphy - unilateral2 1995 Vasectomy 1979 Manipulation and casting of knees 196 Surgery3 1949 1and 2003 2left 3left hand laceration repair Social History Social History Type Response Smoking Status Former smoker; Type: Cigarettes; Tobacco use per day: Smoked 2 packs a day; Number of years: 301 1Quit in 1998 Assessment and Plan Extracted from: Title: Ambulatory Patient Education Author: Pete Liriano MD Date: 05/03 Family Medicine Diabetes and Exercise Regular exercise is important and can help: Control blood glucose (sugar ). Decrease blood pressure. Control blood lipids (cholesterol, triglycerides ). Improve overall health. BENEFITS FROM EXERCISE Improved fitness. Improved flexibility. Improved endurance. Increased bone density. Weight control. Increased muscle strength. Decreased body fat. Improvement of the body's use of insulin, a hormone. Increased insulin sensitivity. Reduction of insulin needs. Reduced stress and tension. Helps you feel better. People with diabetes who add exercise to their lifestyle gain additional benefits, including: Weight loss. Reduced appetite. Improvement of the body's use of blood glucose. Decreased risk factors for heart disease: Lowering of cholesterol and triglycerides. Raising the level of good cholesterol (high-density lipoproteins, HDL ). Lowering blood sugar. Decreased blood pressure. TYPE 1 DIABETES AND EXERCISE Exercise will usually lower your blood glucose. If blood glucose is greater than 240 mg/dl, check urine ketones. If ketones are present, do not exercise. Location of the insulin injection sites may need to be adjusted with exercise. Avoid injecting insulin into areas of the body that will be exercised. For example, avoid injecting insulin into: The arms when playing tennis. The legs when jogging. For more information, discuss this with your caregiver. Keep a record of: Food intake. Type and amount of exercise. Expected peak times of insulin action. Blood glucose levels. Do this before, during, and after exercise. Review your records with your caregiver. This will help you to develop guidelines for adjusting food intake and insulin amounts. TYPE 2 DIABETES AND EXERCISE Regular physical activity can help control blood glucose. Exercise is important because it may: Increase the body's sensitivity to insulin. Improve blood glucose control. Exercise reduces the risk of heart disease. It decreases serum cholesterol and triglycerides. It also lowers blood pressure. Those who take insulin or oral hypoglycemic agents should watch for signs of hypoglycemia. These signs include dizziness, shaking, sweating, chills, and confusion. Body water is lost during exercise. It must be replaced. This will help to avoid loss of body fluids (dehydration ) or heat stroke. Be sure to talk to your caregiver before starting an exercise program to make sure it is safe for you. Remember, any activity is better than none. Document Released: 06/18/2004 Document Revised: 06/20/2012 Document Reviewed: [employer] Patient Information 2014 [employer] [facility]. No follow up information was provided. Extracted from: Title: DM, HTN Author: Pete Liriano MD Date: 05/03/14 Impression and Plan Diagnosis Skin ulcer of face, limited to breakdown of skin (ICD9 707.8, Discharge, Medical ). Prostatism (ICD9 600.90, Discharge, Medical). Diabetes mellitus type 2, uncontrolled (ICD9 250.02, Discharge, Medical). Combined hyperlipidemia (ICD9 272.2, Discharge, Medical). Benign essential hypertension (ICD9 401.1, Discharge, Medical). Acute URI (ICD9 465.9, Discharge, Medical). Plan: Schedule an excision of the skin cancer from your right anabaptist. Resume your Crestor. Continue your other meds. Lab today., Rest and get enough sleep to get over your cold. Diabetes Ed sheet #1 discussed. Lab today.. Orders Orders (Selected) Outpatient Orders Ordered Office Visit Level 4 Est 40799: Future (On Hold) Albumin/Creatinine Ratio, Urine: CMP: Hgb A1c: Prescriptions Prescribed Crestor 20 mg oral tablet: 0.25 tabs, Oral, 3x/Wk, 30 tabs. Dx/Order Association Plan: Diagnosis: Acute URI Comment: Ordered: Office Visit Level 4 Est 47202; 05/03/14 8:57:00 POLISHING MACHINE TENDER, Skin ulcer of face, limited to breakdown of skin | Diabetes mellitus type 2, uncontrolled | Prostatism | Combined hyperlipidemia | Benign essential hypertension Diagnosis: Benign essential hypertension Comment: Ordered: Office Visit Level 4 Est 53982; 05/03/14 8:57:00 POLISHING MACHINE TENDER, Skin ulcer of face, limited to breakdown of skin | Diabetes mellitus type 2, uncontrolled | Prostatism | Combined hyperlipidemia | Benign essential hypertension Diagnosis: Combined hyperlipidemia Comment: Ordered: Office Visit Level 4 Est 75372; 05/03/14 8:57:00 POLISHING MACHINE TENDER, Skin ulcer of face, limited to breakdown of skin | Diabetes mellitus type 2, uncontrolled | Prostatism | Combined hyperlipidemia | Benign essential hypertension Diagnosis: Diabetes mellitus type 2, uncontrolled Comment: Ordered: Office Visit Level 4 Est 54357; 05/03/14 8:57:00 POLISHING MACHINE TENDER, Skin ulcer of face, limited to breakdown of skin | Diabetes mellitus type 2, uncontrolled | Prostatism | Combined hyperlipidemia | Benign essential hypertension Diagnosis: Prostatism Comment: Ordered: Office Visit Level 4 Est 82019; 05/03/14 8:57:00 POLISHING MACHINE TENDER, Skin ulcer of face, limited to breakdown of skin | Diabetes mellitus type 2, uncontrolled | Prostatism | Combined hyperlipidemia | Benign essential hypertension Diagnosis: Skin ulcer of face, limited to breakdown of skin Comment: Ordered: Office Visit Level 4 Est 71152; 05/03/14 8:57:00 POLISHING MACHINE TENDER, Skin ulcer of face, limited to breakdown of skin | Diabetes mellitus type 2, uncontrolled | Prostatism | Combined hyperlipidemia | Benign essential hypertension Additional Orders: Comment: Future Orders: Albumin/Creatinine Ratio, Urine,Urine, Routine collect, 05/03/14, Once, Nurse Collect Non-Blood, Diabetes mellitus type 2, uncontrolled, Order for future visit Future Orders: CMP,Blood, Routine Collect, 05/03/14, Once, Lab Collect, Benign essential hypertension, Order for future visit Future Orders: Hgb A1c,Blood, Routine Collect, 05/03/14, Once, Lab Collect, Diabetes mellitus type 2, uncontrolled, Order for future visit End of Orders ."
--- OUTSIDE RECORDS SUMMARY | 2016-06-23 06:51 | XMS REPORT | Referral Summary ---
Author Organization Unknown Address Unknown Phone Unavailable Care Team Providers Care Assembly Machine Feeder Name Role Phone Josemanuel Liriano Primary Care Physician [phone] Encounter VC Date(s): 05/23/14 - 05/23/14 [facility] Moody, Jeremy, Family [address] [place] [id number] Discharge Diagnosis: Cancer of skin of face Discharge Diagnosis: Diabetes mellitus type 2, uncontrolled Discharge Diagnosis: Visit for suture removal Discharge Disposition: Home or Self Care Attending Physician: Pete Liriano MD Admitting Physician: Pete Liriano MD Vital Signs Most recent to 1 oldest [Reference Range]: Temperature Tympanic 35.5 degC [36.6-38.1 degC] *LOW* (05/23/14 9:52 AM) Peripheral Pulse 108 bpm Rate [60-100 bpm] *HI* (05/23/14 9:52 AM) Blood Pressure 126/74 mmHg [90-140/60-90 mmHg] (05/23/14 9:52 AM) Problem List Condition Effective Dates Status [...] Refill(s), eRx: [facility] #[id number], TAKE ONE TABLET BY MOUTH EVERY DAY Special Instructions: TAKE ONE TABLET BY MOUTH EVERY DAY Start Date: 01/22/14 Status: Ordered Crestor 20 mg oral tablet 0.25 tabs, Oral, 3x/Wk, # 30 tabs, 0 Refill(s), Pharmacy: [facility] # [id number], 0.25 tabs Oral 3x/Wk Start Date: 05/03/14 Status: Ordered famotidine 20 mg oral tablet 1 tabs, Oral, BID, as needed for indigestion, 0 Refill(s) Start Date: 10/02/13 Status: Ordered finasteride 5 mg oral tablet 1 tabs, Oral, Bedtime (once a day), # 90 tabs, 1 Refill(s), Pharmacy: [facility] #[id number], 1 tabs Oral Bedtime (once a day),x90 days Start Date: 05/03/14 Stop Date: 10/30/14 Status: Ordered Levemir FlexTouch 100 units/mL subcutaneous solution See Instructions, Inject 40 units subcutaneously every day. Increase by 1 unit daily if FBS > 140., # 15 mL, 0 Refill(s), Pharmacy: [facility] #[id number], Inject 30 units subcutaneously every day. Increase [...] Refill(s), Pharmacy: [facility] #[id number], 10 units SubCutaneous TIDAC Start Date: 01/31/14 Status: Ordered Xalatan 0.005% ophthalmic solution 1 drops, Eye-Both, Bedtime (once a day), prescribed elsewhere, # 2 mL, 3 Refill( s), Pharmacy: [facility] Special Instructions: prescribed elsewhere Start [...] Patient Education Author: Pete Liriano MD Date: 05/23 Family Medicine Suture Removal Your caregiver has removed your sutures today. If skin adhesive strips were applied at the time of suturing, or applied following removal of the sutures today, they will begin to peel off in a couple more days. If skin adhesive strips remain after 14 days, they may be removed. HOME CARE INSTRUCTIONS Change any bandages (dressings ) at least once a day or as directed by your caregiver. If the bandage sticks, soak it off with warm, soapy water. Wash the area with soap and water to remove all the cream or ointment (if you were instructed to use any) 2 times a day. Rinse off the soap and pat the area dry with a clean towel. Reapply cream or ointment as directed by your caregiver. This will help prevent infection and keep the bandage from sticking. Keep the wound area dry and clean. If the bandage becomes wet, dirty, or develops a bad smell, change it as soon as possible. Only take [id number] or prescription medicines for pain, discomfort, or fever as directed by your caregiver. Use sunscreen when out in the sun. New scars become sunburned easily. Return to your caregivers office in in 7 days or as directed to have your sutures removed. You may need a tetanus shot if: You cannot remember when you had your last tetanus shot. You have never had a tetanus shot. The injury broke your skin. If you got a tetanus shot, your arm may swell, get red, and feel warm to the touch. This is common and not a problem. If you need a tetanus shot and you choose not to have one, there is a rare chance of getting tetanus. Sickness from tetanus can be serious. SEEK IMMEDIATE MEDICAL CARE IF: There is redness, swelling, or increasing pain in the wound. Pus is coming from the wound. An unexplained oral temperature above 102 F (38.9 C) develops. You notice a bad smell coming from the wound or dressing. The wound breaks open (edges not staying together) after sutures have been removed. Document Released: 12/22/2001 Document Revised: 06/20/2012 Document Reviewed: [facility] Patient Information [facility]. No follow up information was provided. Extracted from: Title: suture removal, diabetes Author: Pete Liriano MD Date: 05/23/14 Impression and Plan Diagnosis Visit for suture removal (ICD9 V58.32, Discharge, Medical). Diabetes mellitus type 2, uncontrolled (ICD9 250.02, Discharge, Medical). Cancer of skin of face (ICD9 173.30, Discharge, Medical). Plan: Sutures were all removed from the right facial incision without difficulty. Path report discussed with the patient. Followup in 2-3 weeks and as needed. Continue present meds as ordered. Post op care discussed.. Orders Orders (Selected) Outpatient Orders Ordered Office Visit Level 2 Est 13500: . Dx/Order Association Plan: Diagnosis: Cancer of skin of face Comment: Ordered: Office Visit Level 2 Est 82169; 05/23/14 10:22:00 AUTOMATION CONSULTANT, Visit for suture removal | Cancer of skin of face | Diabetes mellitus type 2, uncontrolled Diagnosis: Diabetes mellitus type 2, uncontrolled Comment: Ordered: Office Visit Level 2 Est 35570; 05/23/14 10:22:00 AUTOMATION CONSULTANT, Visit for suture removal | Cancer of skin of face | Diabetes mellitus type 2, uncontrolled Diagnosis: Visit for suture removal Comment: Ordered: Office Visit Level 2 Est 23175; 05/23/14 10:22:00 AUTOMATION CONSULTANT, Visit for suture removal | Cancer of skin of face | Diabetes mellitus type 2, uncontrolled End of Orders ."
--- OUTSIDE RECORDS SUMMARY | 2016-06-23 06:51 | XMS REPORT | Referral Summary ---
Author Author [facility] Organization [facility] Address Unknown Phone Unavailable Care Team Providers Care Online Communications Manager Name Role Phone Josemanuel Liriano Primary Care Physician [phone] Encounter VC Date(s): 10/04/14 - 10/04/14 [facility] [address] [place] [address] [place] [address] [place] Discharge Diagnosis: BPH with elevated PSA Discharge Disposition: 01-Home or Self Care Attending Physician: Jonnathan Pagan JR, MD Admitting Physician: Jonnathan Pagan JR, MD Referring Physician: Pete Liriano MD Vital Signs Most recent to 1 oldest [Reference Range]: Temperature Tympanic 36.4 degC [36.6-38.1 degC] *LOW* (10/04/14 9:25 AM) Peripheral Pulse 96 bpm Rate [60-100 bpm] (10/04/14 9:25 AM) Blood Pressure 122/70 mmHg [90-140/60-90 mmHg] (10/04/14 9:25 AM) Problem List Condition Effective Dates Status [...] DAILY, # 30 tabs, 8 Refill(s), eRx: [facility] #[id number], TAKE ONE TABLET BY MOUTH DAILY Start Date: 03/25/15 Status: Ordered Crestor 20 mg oral tablet 0.25 tabs, Oral, 3x/Wk, # 30 tabs, 0 Refill(s), Pharmacy: [facility] # [id number], 0.25 tabs Oral 3x/Wk Start Date: 05/03/14 Status: Ordered finasteride 5 mg oral tablet 5 mg 1 tabs, Oral, Bedtime (once a day), # 90 tabs, 0 Refill(s), Pharmacy: [facility] #[id number], 1 tabs Oral Bedtime (once a day),x90 days Start Date: 02/01/15 Stop Date: 05/02/15 Status: Ordered Levemir FlexTouch 100 units/mL subcutaneous solution See Instructions, INJECT 30 UNITS SUB-Q. INCREASE BY ONE UNIT PER DAY IF FASTING BLOOD SUGAR IS GREATER THAN 120., # 9 unknown unit, 5 Refill(s), eRx: [facility] #[id number], INJECT 30 UNITS SUB-Q. INCREASE BY ONE UNIT PER DAY IF FASTING BLOOD SUGAR... Start Date: 03/25/15 Status: Ordered lisinopril 20 mg oral tablet [...] 100 units/mL subcutaneous solution See Instructions, INJECT 10 UNITS THREE TIMES A DAY BEFORE MEALS, # 15 unknown unit, 2 Refill(s), eRx: [facility] #[id number], INJECT 10 UNITS THREE TIMES A DAY BEFORE MEALS Start Date: 03/25/15 Status: Ordered Xalatan 0.005% ophthalmic solution 1 drops, Eye-Both, Bedtime (once a day), # 2 mL, 5 Refill(s), Pharmacy: [facility] #[id number] Start Date: 11/21/14 Status: Ordered Results No [...] 1998 Assessment and Plan Extracted from: Title: Office Visit Note Author: Jonnathan Pagan JR, MD Date: 10/04/14 Assessment/Plan BPH with elevated PSA Normal prostate examination. Recheck in my office in 6 months because of rising PSA instead of one year. Repeat PSA a week before next visit. Continue finasterid. With regards to his erectile dysfunction continue taking the Cialis when necessary. The fundus in the right inguinal and dyspnea and then and also without any problems and sent for that procedure is that the daughter understand when she consented the procedure is usually when she s Ordered: Office Visit Level 3 Est 61861
--- OUTSIDE RECORDS SUMMARY | 2016-06-23 06:51 | XMS REPORT | Continuity of Care Document ---
Author Author [facility] Organization [facility] Address Unknown Phone Unavailable Allergies Active Description Code Type Severity Reaction Onset Reported/Identified Relationship to Patient Clinical Status Yes simvastatin NKMA N/A unknown 08/09/2013 Medications Problems Procedures Results Test Result Range Vitamin D, 25-Hydroxy - 06/02/16 09:35 25-Hydroxy D Total 36 ng/mL 30-74 25-Hydroxy D2 <7 ng/mL 25-Hydroxy D3 36 ng/mL Encounters ACCT No. Visit Date/Time Discharge Status Pt. Type Provider Facility Loc./Unit Complaint [id number] 06/09/2013 09:05:00 06/09/2013 23 :59:59 CLS Outpatient [id number] 05/23/2013 13:25:00 05/23/2013 23 :59:59 CLS Outpatient [id number] 03/07/2013 09:09:00 03/07/2013 23 :59:59 CLS Outpatient
--- OUTSIDE RECORDS SUMMARY | 2016-06-23 06:51 | XMS REPORT | Referral Summary ---
Author Author [facility] Organization [facility] Address Unknown Phone Unavailable Care Team Providers Care Date Pitter Name Role Phone Josemanuel Liriano Primary Care Physician [phone] Encounter Date(s): 06/02/16 - 06/02/16 [facility] [address] [place] [phone] Discharge Diagnosis: BPH with urinary obstruction Discharge Diagnosis: Uncontrolled type 2 diabetes mellitus Discharge Diagnosis: Mechanical loosening of internal left knee prosthetic joint , subsequent encounter Discharge Diagnosis: Osteoarthritis of left ankle Discharge Diagnosis: Left ankle effusion Discharge Diagnosis: Benign essential hypertension Discharge Diagnosis: Mixed hyperlipidemia Discharge Diagnosis: Erectile dysfunction Discharge Disposition: 01-Home or Self Care Attending Physician: Pete Liriano MD Admitting Physician: Pete Liriano MD Vital Signs Most recent to 1 oldest [Reference Range]: Temperature Tympanic 36.0 degC [36.6-38.1 degC] *LOW* (06/02/16 8:32 AM) Peripheral Pulse 100 bpm Rate [60-100 bpm] (06/02/16 8:32 AM) Respiratory Rate 20 br/min [14-20 br/min] (06/02/16 8:32 AM) Blood Pressure 136/78 mmHg [90-140/60-90 mmHg] (06/02/16 8:32 AM) Problem List Condition Effective Dates Status [...] Refill(s) Start Date: 07/19/15 Status: Ordered Cialis 10 mg oral tablet See Instructions, 1 tablet oral as needed for intercourse. Not to exceed twice a week, # 10 tabs, 11 Refill(s), Pharmacy: [facility] [id number], 1 tablet oral as needed for intercourse. Not to exceed twice a week Start Date: 05/07/16 Status: Ordered Crestor 10 mg oral tablet 5 mg 0.5 tabs, Oral, Daily, takes it 5 days/week, # 45 tabs, 3 Refill(s) Start Date: 07/19/15 Stop Date: 07/13/16 Status: Ordered finasteride 5 mg oral tablet 5 mg 1 tabs, Oral, Bedtime (once a day), # 90 tabs, 0 Refill(s), Pharmacy: [facility] [id number], 1 tabs Oral Bedtime (once a day) Start Date: 04/15/16 Status: Ordered ibuprofen 400 mg, Oral, Bedtime (once a day), for right knee pain, 0 Refill(s) Start Date: 09/23/15 Status: Ordered Levemir FlexTouch 100 units/mL subcutaneous solution See Instructions, INJECT 35 UNITS SUB-Q, INCREASE BY 1 UNIT PER DAY IF FASTING BLOOD SUGAR IS GREATER THAN 120, # 15 mL, eRx: [facility] [id number] Start Date: 04/21/16 Status: Ordered lisinopril 10 mg oral tablet 10 mg 1 tabs, Oral, Daily, # 90 tabs, 0 Refill(s), Pharmacy: [facility] [id number], 1 tabs Oral Daily Start Date: 04/30/16 Status: Ordered metFORMIN 500 mg oral tablet, extended release 1,000 mg 2 tabs, Oral, Daily, # 180 tabs, 11 Refill(s), Pharmacy: [facility] [id number], 2 tabs Oral Daily,x90 days Start Date: 09/23/15 Stop Date: 09/07/18 Status: Ordered NovoLOG FlexPen 100 units/mL subcutaneous solution See Instructions, INJECT 10 UNITS THREE TIMES A DAY BEFORE MEALS/PLEASE DISPENSE A 90 DAY SUPPLY., # 30 mL, 1 Refill(s), Pharmacy: [facility] [id number] Start Date: 08/02/15 Status: Ordered rosuvastatin 10 mg oral tablet 10 mg 1 tabs, Oral, Bedtime (once a day), # 90 tabs, 0 Refill(s), Pharmacy: [facility] [id number], 1 tabs Oral Bedtime (once a day) Start Date: 04/30/16 Status: Ordered Vitamin D3 2000 intl units oral capsule 2,000 Intl_Units 1 caps, Oral, Daily, 0 Refill(s) Start Date: 04/30/16 Status: Ordered Xalatan 0.005% ophthalmic solution 1 drops, Eye-Both, Bedtime (once a day), # 2 mL, 5 Refill(s), Pharmacy: [facility] #[id number] Start Date: 11/21/14 Status: Ordered Results Chemistry Most recent to 1 oldest [Reference Range]: Sodium Lvl [135-144 138 mEq/L mEq/L] (06/02/16 9:35 AM) Potassium Lvl 4.5 mEq/L [3.5-5.2 mEq/L] (06/02/16 9:35 AM) Chloride [99-111 104 mEq/L mEq/L] (06/02/16 9:35 AM) CO2 [23-31 mEq/L] 24 mEq/L (06/02/16 9:35 AM) AGAP [3-20] 10 (06/02/16 9:35 AM) BUN [8-26 mg/dL] 13 mg/dL (06/02/16 9:35 AM) Glucose Lvl [70-99 218 mg/dL mg/dL] *HI* (06/02/16 9:35 AM) Creatinine Lvl 0.83 mg/dL [0.72-1.25 mg/dL] (06/02/16 9:35 AM) eGFR [>60 mL/min] >60 mL/min 1 (06/02/16 9:35 AM) Calcium Lvl 9.7 mg/dL 2 [8.4-10.2 mg/dL] (06/02/16 9:35 AM) Chol [0-199 mg/dL] 141 mg/dL (06/02/16 9:35 AM) Trig [0-149 mg/dL] 171 mg/dL *HI* (06/02/16 9:35 AM) HDL [40-84 mg/dL] 32 mg/dL *LOW* (06/02/16 9:35 AM) LDL [0-130 mg/dL] 75 mg/dL (06/02/16 9:35 AM) VLDL Cholesterol 34 mg/dL [0-28 mg/dL] *HI* (06/02/16 9:35 AM) Cardiac Risk 4.4 [0.0-5.7] (06/02/16 9:35 AM) TSH [0.35-4.94] 1.43 (06/02/16 9:35 AM) Hgb A1c [4.1-5.6 %] 8.6 % *HI* (06/02/16 9:35 AM) eAvg Glucose 200.1 mg/dL (06/02/16 9:35 AM) 1Result Comment: Multiply eGFR results by 1.21 for race. 2Result Comment: Please note reference range change effective 05/15/2016. Urinalysis Most recent to 1 oldest [Reference Range]: UA Color Yellow (06/02/16 9:40 AM) UA Appear Clear (06/02/16 9:40 AM) UA pH [5.0-8.0] 5.5 (06/02/16 9:40 AM) UA Leuk Est Negative [Negative] (06/02/16 9:40 AM) UA Nitrite Negative [Negative] (06/02/16 9:40 AM) UA Protein Pos 1+ [Negative] *ABN* (06/02/16 9:40 AM) UA Glucose Pos 3+ [Negative] *ABN* (06/02/16 9:40 AM) UA Ketones Negative [Negative] (06/02/16 9:40 AM) UA Urobilinogen 1.0 mg/dL [<1.0 mg/dL] (06/02/16 9:40 AM) UA Bili [Negative] Negative (06/02/16 9:40 AM) UA Blood [Negative] Negative (06/02/16 9:40 AM) UA Spec Grav 1.025 [1.003-1.030] (06/02/16 9:40 AM) Type Clean Catch (06/02/16 9:40 AM) Crystals Amorphous (06/02/16 9:40 AM) Immunizations Given and Recorded Vaccine Date Status [...] Procedures Procedure Date Related Diagnosis Body Site Total knee arthroplasty1 05/28/15 Colonoscopic polypectomy2 03/11/15 Cystoscopy 02/06/11 Transrectal needle biopsy of prostate 02/06/11 Urethral dilatation 02/06/11 Colonoscopy3 2006 Colonoscopy 2003 Inguinal herniorrhaphy - unilateral4 1995 Vasectomy 1979 Manipulation and casting of knees 1960 Surgery5 1949 1right TKA 2tubular adenoma 1, diverticulosis, history of prior adenomatous polyps, repeat in 5 years 3a2003 4left 5left hand laceration repair Social History Social History Type Response Smoking Status Former smoker; Type: Cigarettes; Tobacco use per day: Smoked 2 packs a day; Number of years: 301 1Quit in 1998 Assessment and Plan Extracted from: Title: Ambulatory Patient Education Author: Pete Liriano MD Date: 06/02 Preventive Medicine Cholesterol Cholesterol is a white, waxy, fat-like substance needed by your body in small amounts. The liver makes all the cholesterol you need. Cholesterol is carried from the liver by the blood through the blood vessels. Deposits of cholesterol ( plaque) may build up on blood vessel gaming. These make the arteries narrower and stiffer. Cholesterol plaques increase the risk for heart attack and stroke. You cannot feel your cholesterol level even if it is very high. The only way to know it is high is with a blood test. Once you know your cholesterol levels, you should keep a record of the test results. Work with your health care provider to keep your levels in the desired range. WHAT DO THE RESULTS MEAN? Total cholesterol is a rough measure of all the cholesterol in your blood. LDL is the so-called bad cholesterol. This is the type that deposits cholesterol in the gaimng of the arteries. You want this level to be low. HDL is the good cholesterol because it cleans the arteries and carries the LDL away. You want this level to be high. Triglycerides are fat that the body can either burn for energy or store. High levels are closely linked to heart disease. WHAT ARE THE DESIRED LEVELS OF CHOLESTEROL? Total cholesterol below 200. LDL below 100 for people at risk, below 70 for those at very high risk. HDL above 50 is good, above 60 is best. Triglycerides below 150. HOW CAN I LOWER MY CHOLESTEROL? Diet. Follow your diet programs as directed by your health care provider. Choose fish or white meat chicken and turkey, roasted or baked. Limit fatty cuts of red meat, fried foods, and processed meats, such as sausage and lunch meats. Eat lots of fresh fruits and vegetables. Choose whole grains, beans, pasta, potatoes, and cereals. Use only small amounts of olive, corn, or canola oils. Avoid butter, mayonnaise, shortening, or palm kernel oils. Avoid foods with trans fats. Drink skim or nonfat milk and eat low-fat or nonfat yogurt and cheeses. Avoid whole milk, cream, ice cream, egg yolks, and full-fat cheeses. Healthy desserts include swetha food cake, donald snaps, animal crackers, hard candy, popsicles, and low-fat or nonfat frozen yogurt. Avoid pastries, cakes, pies, and cookies. Exercise. Follow your exercise programs as directed by your health care provider. A regular program helps decrease LDL and raise HDL. A regular program helps with weight control. Do things that increase your activity level like gardening, walking, or taking the stairs. Ask your health care provider about how you can be more active in your daily life. Medicine. Take medicine only as directed by your health care provider. Medicine may be prescribed by your health care provider to help lower cholesterol and decrease the risk for heart disease. If you have several risk factors, you may need medicine even if your levels are normal. This information is not intended to replace advice given to you by your health care provider. Make sure you discuss any questions you have with your health care provider. Document Released: 12/22/2001 Document Revised: 04/19/2015 Document Reviewed: [employer] Interactive Patient Education 2016 [employer] No follow up information was provided. Extracted from: Title: CRMMP Author: Pete Liriano MD Date: 06/02/16 Impression and Plan Diagnosis Mechanical loosening of internal left knee prosthetic joint, subsequent encounter (BRL01-FM T84.033D, Discharge, Medical). Osteoarthritis of left ankle (CEX37-FU M19.072, Discharge, Medical). Left ankle effusion (WWL49-RM M25.472, Discharge, Medical). Erectile dysfunction (VRY19-IT N52.9, Discharge, Medical). BPH with urinary obstruction (XSW06-TW N40.1, Discharge, Medical). Uncontrolled type 2 diabetes mellitus (NZQ48-GT E11.65, Discharge, Medical). Benign essential hypertension (GVI86-UC I10, Discharge, Medical). Mixed hyperlipidemia (IZG04-WZ E78.2, Discharge, Medical). Plan: 1) ECG ordered. 2) Fasting lipids ordered. 3) You have medical clearance for right knee surgery if your lab is stable or improved. 4) Stop taking Aleve. May take Tylenol as needed for knee and ankle pain. 5) Healthy diet and daily exercise otherwise is helpful. 6) Use crutches, cane or walker as needed. 7) Immunizations appear current. 8) See me in 3 months and as needed.. Orders Orders (Selected) Outpatient Orders Ordered Electrocardiogram, Routine Ecg With At Least 12 Leads; Interpretation And Report Only [id number]: Office Visit Level 5 Est 82049: Future (On Hold) BMP: Fasting Lipid Profile: Hgb A1c: Routine Urinalysis: TSH 3rd Generation: . Dx/Order Association Plan: Diagnosis: BPH with urinary obstruction Comment: Ordered: Office Visit Level 5 Est 62116; 06/02/16 9:02:00 VENTILATING ENGINEER, Uncontrolled type 2 diabetes mellitus | Mechanical loosening of internal left knee prosthetic joint, subsequent encounter | Mixed hyperlipidemia | Benign essential hypertension | BPH with urinary obstruction | Left ankle effusion... Diagnosis: Benign essential hypertension Comment: Ordered: Electrocardiogram, Routine Ecg With At Least 12 Leads; Interpretation And Report Only [id number]; 06/02/16 9:02:00 VENTILATING ENGINEER, 1, Benign essential hypertension | Mechanical loosening of internal left knee prosthetic joint, subsequent encounter | Mixed hyperlipidemia | Uncontrolled type 2 diabetes mellitus Office Visit Level 5 Est 94720; 06/02/16 9:02:00 VENTILATING ENGINEER, Uncontrolled type 2 diabetes mellitus | Mechanical loosening of internal left knee prosthetic joint, subsequent encounter | Mixed hyperlipidemia | Benign essential hypertension | BPH with urinary obstruction | Left ankle effusion... Diagnosis: Erectile dysfunction Comment: Ordered: Office Visit Level 5 Est 01002; 06/02/16 9:02:00 VENTILATING ENGINEER, Uncontrolled type 2 diabetes mellitus | Mechanical loosening of internal left knee prosthetic joint, subsequent encounter | Mixed hyperlipidemia | Benign essential hypertension | BPH with urinary obstruction | Left ankle effusion... Diagnosis: Left ankle effusion Comment: Ordered: Office Visit Level 5 Est 53959; 06/02/16 9:02:00 VENTILATING ENGINEER, Uncontrolled type 2 diabetes mellitus | Mechanical loosening of internal left knee prosthetic joint, subsequent encounter | Mixed hyperlipidemia | Benign essential hypertension | BPH with urinary obstruction | Left ankle effusion... Diagnosis: Mechanical loosening of internal left knee prosthetic joint, subsequent encounter Comment: Ordered: Electrocardiogram, Routine Ecg With At Least 12 Leads; Interpretation And Report Only [id number]; 06/02/16 9:02:00 VENTILATING ENGINEER, 1, Benign essential hypertension | Mechanical loosening of internal left knee prosthetic joint, subsequent encounter | Mixed hyperlipidemia | Uncontrolled type 2 diabetes mellitus Office Visit Level 5 Est 00416; 06/02/16 9:02:00 VENTILATING ENGINEER, Uncontrolled type 2 diabetes mellitus | Mechanical loosening of internal left knee prosthetic joint, subsequent encounter | Mixed hyperlipidemia | Benign essential hypertension | BPH with urinary obstruction | Left ankle effusion... Diagnosis: Mixed hyperlipidemia Comment: Ordered: Electrocardiogram, Routine Ecg With At Least 12 Leads; Interpretation And Report Only [id number]; 06/02/16 9:02:00 VENTILATING ENGINEER, 1, Benign essential hypertension | Mechanical loosening of internal left knee prosthetic joint, subsequent encounter | Mixed hyperlipidemia | Uncontrolled type 2 diabetes mellitus Office Visit Level 5 Est 29535; 06/02/16 9:02:00 VENTILATING ENGINEER, Uncontrolled type 2 diabetes mellitus | Mechanical loosening of internal left knee prosthetic joint, subsequent encounter | Mixed hyperlipidemia | Benign essential hypertension | BPH with urinary obstruction | Left ankle effusion... Diagnosis: Osteoarthritis of left ankle Comment: Ordered: Office Visit Level 5 Est 30666; 06/02/16 9:02:00 VENTILATING ENGINEER, Uncontrolled type 2 diabetes mellitus | Mechanical loosening of internal left knee prosthetic joint, subsequent encounter | Mixed hyperlipidemia | Benign essential hypertension | BPH with urinary obstruction | Left ankle effusion... Diagnosis: Uncontrolled type 2 diabetes mellitus Comment: Ordered: Electrocardiogram, Routine Ecg With At Least 12 Leads; Interpretation And Report Only [id number]; 06/02/16 9:02:00 VENTILATING ENGINEER, 1, Benign essential hypertension | Mechanical loosening of internal left knee prosthetic joint, subsequent encounter | Mixed hyperlipidemia | Uncontrolled type 2 diabetes mellitus Office Visit Level 5 Est 08607; 06/02/16 9:02:00 VENTILATING ENGINEER, Uncontrolled type 2 diabetes mellitus | Mechanical loosening of internal left knee prosthetic joint, subsequent encounter | Mixed hyperlipidemia | Benign essential hypertension | BPH with urinary obstruction | Left ankle effusion... Diagnosis: Benign essential hypertension Comment: Diagnosis: Mixed hyperlipidemia Comment: Diagnosis: Uncontrolled type 2 diabetes mellitus Comment: Diagnosis: Mixed hyperlipidemia Comment: Diagnosis: Benign essential hypertension Comment: Diagnosis: BPH with urinary obstruction Comment: Diagnosis: Uncontrolled type 2 diabetes mellitus Comment: End of Orders ."
--- OUTSIDE RECORDS SUMMARY | 2016-06-23 06:51 | XMS REPORT | Referral Summary ---
Author Author [facility] Organization [facility] Address Unknown Phone Unavailable Care Team Providers Care Bottom Turning Lathe Turner Name Role Phone Josemanuel Liriano Primary Care Physician [phone] Encounter VC Date(s): 10/04/14 - 10/04/14 [facility] [address] [place] [address] [place] [phone]- [place] Discharge Diagnosis: BPH [...] Daily, # 30 tabs, 1 Refill(s), Pharmacy: [facility] # [id number], 1 tabs Oral Daily Start Date: 12/28/14 Status: Ordered Crestor 20 mg oral tablet 0.25 tabs, Oral, 3x/Wk, # 30 tabs, 0 Refill(s), Pharmacy: [facility] # [id number], 0.25 tabs Oral 3x/Wk Start Date: 05/03/14 Status: Ordered finasteride 5 mg oral tablet 5 mg 1 tabs, Oral, Bedtime (once a day), # 90 tabs, 0 Refill(s), Pharmacy: [facility] #[id number], 1 tabs Oral Bedtime (once a day),x90 days Start Date: 02/01/15 Stop Date: 05/02/15 Status: Ordered Levemir FlexTouch 100 units/mL subcutaneous solution See Instructions, INJECT 30 UNITS UNDER THE SKIN DAILY - INCREASE BY 1 UNIT DAILY IF FASTING BLOOD SUGAR IS GREATER THAN 120., # 15 unknown unit, eRx: [facility] #[id number], INJECT 30 UNITS UNDER THE SKIN DAILY [...] TIDAC, # 15 mL, 11 Refill(s), Pharmacy: [facility] #[id number], 10 units SubCutaneous TIDAC Start Date: 01/31/14 Status: Ordered Xalatan 0.005% ophthalmic solution 1 drops, Eye-Both, Bedtime (once a day), # 2 mL, 5 Refill(s), Pharmacy: [facility] #[id number] Start Date: 11/21/14 Status: Ordered Results No [...] 02/06/11 Urethral dilatation 02/06/11 Colonoscopy1 2006 Colonoscopy 2003 Inguinal herniorrhaphy - unilateral2 1995 Vasectomy 1979 Manipulation and casting of knees 1961 Surgery3 [...] s Ordered: Office Visit Level 3 Est 31379
--- OUTSIDE RECORDS SUMMARY | 2016-06-23 06:51 | XMS REPORT | Referral Summary ---
Author Author [facility] Organization [facility] Address Unknown Phone Unavailable Care Team Providers Care Traffic Division Commanding Officer Name Role Phone Josemanuel Liriano Primary Care Physician [phone] Encounter VC Date(s): 11/20/14 - 11/20/14 [facility] [address] [facility] [place] , [place] [address] Discharge Diagnosis: POAG (primary open-angle glaucoma) Discharge [...] Daily, # 30 tabs, 1 Refill(s), Pharmacy: [facility] # [id number], 1 tabs Oral Daily Start Date: 12/28/14 Status: Ordered Crestor 20 mg oral tablet 0.25 tabs, Oral, 3x/Wk, # 30 tabs, 0 Refill(s), Pharmacy: [facility] # [id number], 0.25 tabs Oral 3x/Wk Start Date: 05/03/14 Status: Ordered finasteride 5 mg oral tablet 5 mg 1 tabs, Oral, Bedtime (once a day), # 90 tabs, 0 Refill(s), Pharmacy: [facility] #[id number], 1 tabs Oral Bedtime (once a day),x90 days Start Date: 02/01/15 Stop Date: 05/02/15 Status: Ordered Levemir FlexTouch 100 units/mL subcutaneous solution See Instructions, INJECT 30 UNITS UNDER THE SKIN DAILY - INCREASE BY 1 UNIT DAILY IF FASTING BLOOD SUGAR IS GREATER THAN 120., # 15 unknown unit, eRx: [facility] #[id number], INJECT 30 UNITS UNDER THE SKIN DAILY [...] TIDAC, # 15 mL, 11 Refill(s), Pharmacy: [facility] #[id number], 10 units SubCutaneous TIDAC Start Date: 01/31/14 Status: Ordered Xalatan 0.005% ophthalmic solution 1 drops, Eye-Both, Bedtime (once a day), # 2 mL, 5 Refill(s), Pharmacy: [facility] #[id number] Start Date: 11/21/14 Status: Ordered Results No [...] 06/20/2012 Document Reviewed: [employer] Patient Information 2015 [employer]. This information is not intended to replace advice given to you by your health care provider. Make sure you discuss any questions you have with your health care provider. No follow up information was provided. Referrals to Other Providers Referred by: Sridhar Harden MD
--- OUTSIDE RECORDS SUMMARY | 2016-06-23 06:51 | XMS REPORT | Referral Summary ---
Author Author [facility] Organization [facility] Address Unknown Phone Unavailable Care Team Providers Care Engine Cleaner Name Role Phone Josemanuel Liriano Primary Care Physician [phone] Encounter Date(s): 10/04/14 - 10/04/14 [facility] [address] [place] [address] [place] [phone] Discharge Diagnosis: BPH [...] Refill(s), Pharmacy: [facility] # [id number], 1 tabs Oral Daily Start Date: 12/28/14 Status: Ordered Crestor 20 mg oral tablet 0.25 tabs, Oral, 3x/Wk, # 30 tabs, 0 Refill(s), Pharmacy: [facility] # [id number], 0.25 tabs Oral 3x/Wk Start Date: 05/03/14 Status: Ordered finasteride 5 mg oral tablet 5 mg 1 tabs, Oral, Bedtime (once a day), # 90 tabs, 0 Refill(s), Pharmacy: [facility] #[id number], 1 tabs Oral Bedtime (once a day),x90 days Start Date: 02/01/15 Stop Date: 05/02/15 Status: Ordered Levemir FlexTouch 100 units/mL subcutaneous solution See Instructions, INJECT 30 UNITS UNDER THE SKIN DAILY - INCREASE BY 1 UNIT DAILY IF FASTING BLOOD SUGAR IS GREATER THAN 120., # 15 unknown unit, eRx: [facility] #[id number], INJECT 30 UNITS UNDER THE SKIN DAILY [...] 11 Refill(s), Pharmacy: [facility] #[id number], 10 units SubCutaneous TIDAC Start Date: 01/31/14 Status: Ordered Xalatan 0.005% ophthalmic solution 1 drops, Eye-Both, Bedtime (once a day), # 2 mL, 5 Refill(s), Pharmacy: [facility] #[id number] Start Date: 11/21/14 Status: Ordered Results No [...] s Ordered: Office Visit Level 3 Est 60959
--- OUTSIDE RECORDS SUMMARY | 2016-06-23 06:51 | XMS REPORT | Referral Summary ---
Author Author [facility] Organization [facility] Address Unknown Phone Unavailable Care Team Providers Care Legal Instructor Name Role Phone Josemanuel Liriano Primary Care Physician [phone] Encounter VC Date(s): 09/23/15 - 09/23/15 [facility] [address] [place] [id number] Discharge Disposition: 01-Home or Self Care Attending [...] 30 tabs, 8 Refill(s), eRx: [facility] #[id number], TAKE ONE TABLET BY MOUTH DAILY Start Date: 03/25/15 Status: Ordered Crestor 10 mg oral tablet 5 mg 0.5 tabs, Oral, Daily, takes it 5 days/week, # 45 tabs, 3 Refill(s) Start Date: 07/19/15 Stop Date: 07/13/16 Status: Ordered finasteride 5 mg oral tablet 5 mg 1 tabs, Oral, Daily, at bedtime, # 90 tabs, 0 Refill(s), Pharmacy: [facility] [id number], 1 tabs Oral Daily,Instr:at bedtime Start Date: 08/28/15 Status: Ordered ibuprofen 400 mg, Oral, Bedtime (once a day), for right knee pain, 0 Refill(s) Start Date: 09/23/15 Status: Ordered Levemir FlexTouch 100 units/mL subcutaneous solution See Instructions, INJECT 30 UNITS SUB-Q. INCREASE BY ONE UNIT PER DAY IF FASTING BLOOD SUGAR IS GREATER THAN 120., # 15 mL, 1 Refill(s), Pharmacy: [facility] [id number], INJECT 30 UNITS SUB-Q. INCREASE BY ONE UNIT PER DAY IF FASTING BLOOD SUGAR I... Start Date: 08/02/15 Status: Ordered lisinopril 5 mg oral tablet 5 mg 1 tabs, Oral, Daily, # 90 tabs, 3 Refill(s), Pharmacy: [facility] [id number], 1 tabs Oral Daily Start Date: 09/23/15 Status: Ordered metFORMIN 500 mg oral tablet, extended release 1,000 mg 2 tabs, Oral, Daily, # 180 tabs, 11 Refill(s), Pharmacy: [facility] [id number], 2 tabs Oral Daily,x90 days Start Date: 09/23/15 Stop Date: 09/07/18 Status: Ordered NovoLOG FlexPen 100 units/mL subcutaneous solution See Instructions, INJECT 8 UNITS THREE TIMES A DAY BEFORE MEALS/PLEASE DISPENSE A 90 DAY SUPPLY., # 30 mL, 1 Refill(s), Pharmacy: [id number], INJECT 8 UNITS THREE TIMES A DAY BEFORE MEALS/PLEASE DISPENSE A 90 DAY SUPPLY. Start Date: 08/02/15 Status: Ordered Xalatan 0.005% ophthalmic solution 1 drops, Eye-Both, Bedtime (once a day), # 2 mL, 5 Refill(s), Pharmacy: [facility] #[id number] Start Date: 11/21/14 Status: Ordered Results Chemistry [...] over time. Your health care provider or braille coder can help create an activity plan that [...] 04/19/2015 Document Reviewed: ExitCare Patient Information 2016 Cards Off [facility]. No follow up information was provided. Extracted from: Title: diabetes, right knee pain, Author: Pete Liriano MD Date: HTN Impression and Plan Diagnosis Pain in right knee (EKE22-DE M25.561, Working, Medical). Diabetes mellitus type 2, uncontrolled (VZB93-ZT E11.65, Working, Medical). Benign essential hypertension (KOZ97-RI I10, Working, Medical). Combined hyperlipidemia (EOU92-WL E78.2, Working, Medical). Diabetic nephropathy (EZC30-BG E11.21, Working, Medical). Plan: 1) Stop your [...] Orders Ordered Office Visit Level 4 Est 34862: Future (On Hold) BMP: Hgb A1c: Triglycerides: Prescriptions Prescribed lisinopril 5 mg oral tablet: 5 mg=1 tabs, Oral, Daily, 90 tabs, 3 Refill(s) metFORMIN 500 mg oral tablet, extended release: 1,000 mg=2 tabs, Oral, Daily, for 90 days, 180 tabs, 11 Refill(s). Dx/Order Association Plan: Diagnosis: Benign essential hypertension Comment: Ordered: Office Visit Level 4 Est 96621; 09/23/15 7:46:00 CDT, Diabetes mellitus type 2, uncontrolled | Pain in right knee | Diabetic nephropathy | Benign essential hypertension | Combined hyperlipidemia Diagnosis: Combined hyperlipidemia Comment: Ordered: Office Visit Level 4 Est 30592; 09/23/15 7:46:00 CDT, Diabetes mellitus type 2, uncontrolled | Pain in right knee | Diabetic nephropathy | Benign essential hypertension | Combined hyperlipidemia Diagnosis: Diabetes mellitus type 2, uncontrolled Comment: Ordered: Office Visit Level 4 Est 92098; 09/23/15 7:46:00 CDT, Diabetes mellitus type 2, uncontrolled | Pain in right knee | Diabetic nephropathy | Benign essential hypertension | Combined hyperlipidemia Diagnosis: Diabetic nephropathy Comment: Ordered: Office Visit Level 4 Est 93343; 09/23/15 7:46:00 CDT, Diabetes mellitus type 2, uncontrolled | Pain in right knee | Diabetic nephropathy | Benign essential hypertension | Combined hyperlipidemia Diagnosis: Pain in right knee Comment: Ordered: Office Visit Level 4 Est 88607; 09/23/15 7:46:00 CDT, Diabetes mellitus type 2, [...] Daily, # 90 tabs, 3 Refill(s), Pharmacy: [facility] [id number], 1 tabs Oral Daily Ordered: metFORMIN 500 mg oral tablet, extended release,1,000 mg 2 tabs, Oral, Daily, # 180 tabs, 11 Refill(s), Pharmacy: [facility] [id number], 2 tabs Oral Daily,x90 days End of Orders ."
--- OUTSIDE RECORDS SUMMARY | 2016-06-23 06:51 | XMS REPORT | Referral Summary ---
Author Author [facility] Organization [facility] Address Unknown Phone Unavailable Care Team Providers Care Front Desk Receptionist Name Role Phone Josemanuel Liriano Primary Care Physician [phone] Encounter VC Date(s): 09/23/15 - 09/23/15 [facility] [address] [place] [address] Discharge Disposition: 01-Home or Self Care Attending [...] 30 tabs, 8 Refill(s), eRx: [facility] #[id number], TAKE ONE TABLET BY MOUTH DAILY Start Date: 03/25/15 Status: Ordered Crestor 10 mg oral tablet 5 mg 0.5 tabs, Oral, Daily, takes it 5 days/week, # 45 tabs, 3 Refill(s) Start Date: 07/19/15 Stop Date: 07/13/16 Status: Ordered finasteride 5 mg oral tablet 5 mg 1 tabs, Oral, Daily, at bedtime, # 90 tabs, 0 Refill(s), Pharmacy: [id number], 1 tabs Oral Daily,Instr:at bedtime Start Date: 08/28/15 Status: Ordered ibuprofen 400 mg, Oral, Bedtime (once a day), for right knee pain, 0 Refill(s) Start Date: 09/23/15 Status: Ordered Levemir FlexTouch 100 units/mL subcutaneous solution See Instructions, INJECT 30 UNITS SUB-Q. INCREASE BY ONE UNIT PER DAY IF FASTING BLOOD SUGAR IS GREATER THAN 120., # 15 mL, 1 Refill(s), Pharmacy: [facility] [id number], INJECT 30 UNITS SUB-Q. INCREASE BY ONE UNIT PER DAY IF FASTING BLOOD SUGAR I... Start Date: 08/02/15 Status: Ordered lisinopril 5 mg oral tablet 5 mg 1 tabs, Oral, Daily, # 90 tabs, 3 Refill(s), Pharmacy: [facility] [id number], 1 tabs Oral Daily Start Date: 09/23/15 Status: Ordered metFORMIN 500 mg oral tablet, extended release 1,000 mg 2 tabs, Oral, Daily, # 180 tabs, 11 Refill(s), Pharmacy: [facility] [id number], 2 tabs Oral Daily,x90 days Start Date: 09/23/15 Stop Date: 09/07/18 Status: Ordered NovoLOG FlexPen 100 units/mL subcutaneous solution See Instructions, INJECT 8 UNITS THREE TIMES A DAY BEFORE MEALS/PLEASE DISPENSE A 90 DAY SUPPLY., # 30 mL, 1 Refill(s), Pharmacy: [facility] [id number], INJECT 8 UNITS THREE TIMES A DAY BEFORE MEALS/PLEASE DISPENSE A 90 DAY SUPPLY. Start Date: 08/02/15 Status: Ordered Xalatan 0.005% ophthalmic solution 1 drops, Eye-Both, Bedtime (once a day), # 2 mL, 5 Refill(s), Pharmacy: [facility] #[id number] Start Date: 11/21/14 Status: Ordered Results Chemistry [...] over time. Your health care provider or ict educator can help create an activity plan [...] 04/19/2015 Document Reviewed: ExitCare Patient Information 2016 [employer] [facility]. No follow up information was provided. Extracted from: Title: diabetes, right knee pain, Author: Pete Liriano MD Date: HTN Impression and Plan Diagnosis Pain in right knee (WLM09-YK M25.561, Working, Medical). Diabetes mellitus type 2, uncontrolled (JZQ63-YN E11.65, Working, Medical). Benign essential hypertension (NMR18-BO I10, Working, Medical). Combined hyperlipidemia (URV01-EE E78.2, Working, Medical). Diabetic nephropathy (NHA03-CR E11.21, Working, Medical). Plan: 1) Stop your [...] Orders Ordered Office Visit Level 4 Est 45306: Future (On Hold) BMP: Hgb A1c: Triglycerides: Prescriptions Prescribed lisinopril 5 mg oral tablet: 5 mg=1 tabs, Oral, Daily, 90 tabs, 3 Refill(s) metFORMIN 500 mg oral tablet, extended release: 1,000 mg=2 tabs, Oral, Daily, for 90 days, 180 tabs, 11 Refill(s). Dx/Order Association Plan: Diagnosis: Benign essential hypertension Comment: Ordered: Office Visit Level 4 Est 85980; 09/23/15 7:46:00 CDT, Diabetes mellitus type 2, uncontrolled | Pain in right knee | Diabetic nephropathy | Benign essential hypertension | Combined hyperlipidemia Diagnosis: Combined hyperlipidemia Comment: Ordered: Office Visit Level 4 Est 99865; 09/23/15 7:46:00 CDT, Diabetes mellitus type 2, uncontrolled | Pain in right knee | Diabetic nephropathy | Benign essential hypertension | Combined hyperlipidemia Diagnosis: Diabetes mellitus type 2, uncontrolled Comment: Ordered: Office Visit Level 4 Est 99803; 09/23/15 7:46:00 CDT, Diabetes mellitus type 2, uncontrolled | Pain in right knee | Diabetic nephropathy | Benign essential hypertension | Combined hyperlipidemia Diagnosis: Diabetic nephropathy Comment: Ordered: Office Visit Level 4 Est 83178; 09/23/15 7:46:00 CDT, Diabetes mellitus type 2, uncontrolled | Pain in right knee | Diabetic nephropathy | Benign essential hypertension | Combined hyperlipidemia Diagnosis: Pain in right knee Comment: Ordered: Office Visit Level 4 Est 83026; 09/23/15 7:46:00 CDT, Diabetes mellitus type 2, [...] Daily, # 90 tabs, 3 Refill(s), Pharmacy: [facility] [id number], 1 tabs Oral Daily Ordered: metFORMIN 500 mg oral tablet, extended release,1,000 mg 2 tabs, Oral, Daily, # 180 tabs, 11 Refill(s), Pharmacy: [facility] 106[facility], 2 tabs Oral Daily,x90 days End of Orders ."
--- OUTSIDE RECORDS SUMMARY | 2016-06-23 06:51 | XMS REPORT | Continuity of Care Document ---
Author Author [facility] Address [address] [facility] [place] [address] Phone Care Team Providers Care Hse Manager Name Role Phone Pete Liriano PP Unavailable Payers Payer name Insurance type Covered constitution party ID Authorization(s) Unknown Problems Condition Effective Dates (start - stop) Clinical Status Primary open angle glaucoma - *Chronic Primary open angle glaucoma - Chronic DMII WO CMP UNCNTRLD - PURE HYPERCHOLESTEROLEM - BENIGN HYPERTENSION - BPH W URINARY OBS/LUTS - NOD PROSTATE W/O UR OBST - OSTEOARTHROS NOS-ANKLE - Hyperlipidemia, NOS - *Chronic Hypertension, benign - *Chronic 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 Other and unspecified hyperlipidemia - *Chronic Tension headache - *Chronic Diabetes Mellitus, Adult Onset, Uncontrolled - *Chronic Wasp sting - *Acute Cellulitis, finger - Diabetes type 2, controlled - *Chronic Hypertension - *Chronic Unspecified cellulitis and abscess of finger - *Acute Diabetes type 2, uncontrolled - *Chronic Hyperlipidemia - *Chronic Hypertension - *Chronic BPH with urinary obstruction - *Chronic Urinary obstruction, not elsewhere classified - *Chronic Influenza Vaccine - Hypertension, Benign - *Chronic Hypercholesterolemia - *Chronic Osteoarthritis, knee - *Chronic Diabetes Mellitus Type 2, Uncomplicated - *Chronic Organic impotence - *Chronic Hypertension, benign - *Chronic Diabetes, type 2, unspec - *Chronic Hyperlipidemia, NOS - *Chronic Osteoarthritis, knee - *Chronic Back pain - *Chronic Diabetes Mellitus Type 2, Uncomplicated - *Chronic Actinic keratoses - *Chronic Diabetes Mellitus, Adult Onset, Uncontrolled - *Chronic Other and unspecified hyperlipidemia - *Chronic Hypertension, Benign - *Chronic BPH - *Chronic Erectile Dysfunction - *Chronic BPH - *Controlled Diabetes Mellitus Type 2, Uncomplicated - *Controlled Erectile Dysfunction - *Controlled Hypertension, Unspecified - *Controlled Osteoarthritis of right knee - *Chronic Hypercholesterolemia - *Chronic Hypertension, Benign - *Chronic History of colon polyps - *Stable Diabetes, type 2, unspec - *Chronic Hypertension, benign - *Chronic Primary open angle glaucoma - *Chronic Primary open angle glaucoma - Chronic Primary open angle glaucoma - *Chronic Primary open angle glaucoma - *Chronic Primary open angle glaucoma - Chronic BPH - *Controlled Erectile Dysfunction - *Controlled Diabetes Mellitus Type 2, Uncomplicated - *Controlled Family History Family Member Diagnosis Age At Onset Status Mother (Unknown) CVA (Stroke) Yes Sister (Unknown) Alive and well (Unknown) Father (Unknown) Myocardial infarction Yes Brother (Unknown) AIDS Yes Father (Unknown) Diabetes Yes 2 Sons (Unknown) Alive and well (Unknown) Several Pat. uncles (Unknown) Diabetes Yes Family h/o (Unknown) Cancer No Several Pat. aunts (Unknown) Diabetes Yes Mother (Unknown) old age Yes Social History Social History Element Description Quantity alcohol Allergies, Adverse Reactions, Alerts Substance Reaction Severity Status SIMVASTATIN unknown Unknown Medications Medication Instructions Dosage Effective Dates (start - stop) Status One Touch Ultra 2 Kit Use as directed, for diabetes. - Active One Touch Ultra Test Strips Test BSs daily. - Active Insulin Pen Needle 31 X 1/4" Use to inject levemir. - Active lisinopril 5 mg tablet Take 1 tablet by mouth daily - Active Lipitor 40 mg tablet Take 1 tablet by mouth at bedtime. - Active Xalatan 0.005 % Eye Drops Place 1 drop OU at bedtime. - Active Cialis 5 mg tablet take 1 tablet (5MG) by oral route every day 5 MG - Active metformin 1,000 mg tablet Take 1 tablet by mouth twice a day. - Active famotidine 20 mg tablet take 1 tablet (20MG) by oral route 2 times every day 20 MG - Active Victoza 2-Lance 0.6 mg/0.1 mL (18 mg/3 mL) Sub-Q Pen Injector inject 1.8 mg subcutaneously every day. - Active Levemir Flexpen 100 unit/mL (3 mL) solution subcutaneous insulin Pen inject 30 Unit by Subcutaneous route every day; increase by 1 unit daily if FBS > 120 - Active finasteride 5 mg tablet Take 1 tablet by mouth at bedtime. - Active Immunizations Vaccine Date Status Comments Flu (split) (3 yrs or older) completed Flu (split) (3 yrs or older) completed Td (adult) completed - Completed reason: source unspecified Tdap (Adacel ) completed - Completed reason: source unspecified Td (adult) completed - Completed reason: source unspecified Zoster completed - Completed reason: source unspecified pneumo (2 yrs or older) (PPV23) completed - Completed reason: source unspecified Results Test Name Date and Time Measure Units Reference Range Abnormal Flag Comments Unknown Vital Signs Date / Time: Height Weight Pulse Rate Blood Pressure Temperature Unknown Procedures Procedure Date Unknown Encounters Encounter Location Date Patient Visit [facility]ology [facility] Ophthamology Patient Visit [facility] Ophthamology Patient Visit [facility] Patient Visit Conversion Advance Directives Directive Effective Date Unknown
--- OUTSIDE RECORDS SUMMARY | 2016-06-23 06:52 | XMS REPORT | Referral Summary ---
Author Author [facility] Organization [facility] Address Unknown Phone Unavailable Care Team Providers Care Firer Locomotive Crane Name Role Phone Josemanuel Liriano Primary Care Physician [phone] Encounter VC Date(s): 10/04/14 - 10/04/14 [facility] [address] [place] [address] [place] [address] [place] Discharge Diagnosis: BPH [...] # 30 tabs, 1 Refill(s), Pharmacy: [facility] # [id number], 1 tabs Oral Daily Start Date: 12/28/14 Status: Ordered Crestor 20 mg oral tablet 0.25 tabs, Oral, 3x/Wk, # 30 tabs, 0 Refill(s), Pharmacy: [facility] # [id number], 0.25 tabs Oral 3x/Wk Start Date: 05/03/14 Status: Ordered finasteride 5 mg oral tablet 5 mg 1 tabs, Oral, Bedtime (once a day), # 90 tabs, 0 Refill(s), Pharmacy: [facility] #[id number], 1 tabs Oral Bedtime (once a day),x90 days Start Date: 02/01/15 Stop Date: 05/02/15 Status: Ordered Levemir FlexTouch 100 units/mL subcutaneous solution See Instructions, INJECT 30 UNITS UNDER THE SKIN DAILY - INCREASE BY 1 UNIT DAILY IF FASTING BLOOD SUGAR IS GREATER THAN 120., # 15 unknown unit, eRx: [facility] #[id number], INJECT 30 UNITS UNDER THE SKIN DAILY [...] # 15 mL, 11 Refill(s), Pharmacy: [facility] #[id number], 10 units SubCutaneous TIDAC Start Date: 01/31/14 Status: Ordered Xalatan 0.005% ophthalmic solution 1 drops, Eye-Both, Bedtime (once a day), # 2 mL, 5 Refill(s), Pharmacy: [facility] #[id number] Start Date: 11/21/14 Status: Ordered Results No [...] s Ordered: Office Visit Level 3 Est 96333
--- OUTSIDE RECORDS SUMMARY | 2016-06-23 06:52 | XMS REPORT | Continuity of Care Document ---
Author Author [facility] Organization [facility] Address Unknown Phone Unavailable Care Team Providers Care Pbx Inspector Name Role Phone ESTEFANIA SOW MD PP Unavailable Insurance Providers Payer Name Policy Number Subscriber Name Relationship Medicareadvantra Ppo [id number] Christopher Lee 19 Self Problems No Known Problems or Medical conditions. Family History History Response Recorded Date/Time Hx Abdominal Surgery Y LT ING HERNIA 10/31/12 2:38pm Hx Angina N 10/31/12 2:38pm Hx Congestive Heart Failure N 10/31/12 2:38pm Hx Heart Attack N 10/31/12 2:38pm Hx Hypertension Y 10/31/12 2:38pm Hx Rheumatic Fever N 10/31/12 2:38pm Hx Diabetes Y 10/31/12 2:38pm Hx Cancer N 10/31/12 2:38pm Hx MRSA N 10/31/12 2:38pm HX of Genitourinary Surgeries VASECTOMY 10/31/12 2:38pm Social History History Response Recorded Date/Time Smoking Status Never smoker 10/31/12 2:38pm Hx Substance Use N 10/31/12 2:38pm Hx Alcohol Use Y 1-2X WEEK 10/31/12 2:38pm Allergies, Adverse Reactions, Alerts Allergen Type Severity Reaction Last Updated simvastatin Allergy Unknown 10/31/12 Medications Medication Dose Units Route Sig Qty Days Aspirin 81 Mg PO DAILY Fish Oil/Cuba-3 Fatty Acids (Cuba 3 Fish Oil 1,000 Mg Cap) 1 Cap PO DAILY Lisinopril 10 Mg PO DAILY Sitagliptin Phosphate (Januvia) 100 Mg PO DAILY Pioglitazone/Metformin (Actoplus Met 15 Mg-850 Mg Tab) PO BID Atorvastatin Calcium (Lipitor) 40 Mg PO DAILY Insulin Detemir (Levemir) 12 Units SQ DAILY Immunizations Name Given Type Hx Influenza Vaccination FALL 2011 H Hx Pneumococcal Vaccination FALL 2011 H Hx Tetanus, Diptheria, Pertussis Y 2009 H Response Recorded Date/Time Status not known Unknown Results No Known Relevant Diagnostic Tests, Laboratory Data and/or Discharge Summary. Procedures Procedure Code Date RPR S/N/AX/GEN/TRNK 2.5CM/< 99471 06/07/08 BIOPSY OF PROSTATE 69667 02/06/11 CYSTOSCOPY AND TREATMENT 05805 02/06/11 BIOPSY SKIN LESION 20890 02/06/11 BIOPSY SKIN ADD-ON 47162 02/06/11 BIOPSY SKIN ADD-ON 80815 02/06/11 BIOPSY SKIN ADD-ON 69901 02/06/11 BIOPSY SKIN ADD-ON 02/06/11 DESTRUCT B9 LESION 1-14 56208 02/06/11 RPR S/N/AX/GEN/TRNK2.6-7.5CM 22817 10/31/12 Encounters Encounter Location Date/Time Departed Emergency Room [facility] 10/31/12 2:31pm Pre-registered Emergency Room [facility] 03/25/09 2:31pm
--- OUTSIDE RECORDS SUMMARY | 2016-06-23 06:52 | XMS REPORT | Referral Summary ---
Author Author [facility] Organization [facility] Address Unknown Phone Unavailable Care Team Providers Care Machine Deburrer Name Role Phone Josemanuel Liriano Primary Care Physician [phone] Encounter Date(s): 10/04/14 - 10/04/14 [facility] [address] [place] [address] [place] [phone] Discharge Diagnosis: BPH [...] Daily, # 30 tabs, 1 Refill(s), Pharmacy: [facility] # [id number], 1 tabs Oral Daily Start Date: 12/28/14 Status: Ordered Crestor 20 mg oral tablet 0.25 tabs, Oral, 3x/Wk, # 30 tabs, 0 Refill(s), Pharmacy: [facility] # [id number], 0.25 tabs Oral 3x/Wk Start Date: 05/03/14 Status: Ordered finasteride 5 mg oral tablet 5 mg 1 tabs, Oral, Bedtime (once a day), # 90 tabs, 0 Refill(s), Pharmacy: [facility] #[id number], 1 tabs Oral Bedtime (once a day),x90 days Start Date: 02/01/15 Stop Date: 05/02/15 Status: Ordered Levemir FlexTouch 100 units/mL subcutaneous solution See Instructions, INJECT 30 UNITS UNDER THE SKIN DAILY - INCREASE BY 1 UNIT DAILY IF FASTING BLOOD SUGAR IS GREATER THAN 120., # 15 unknown unit, eRx: [facility] #[id number], INJECT 30 UNITS UNDER THE SKIN DAILY [...] TIDAC, # 15 mL, 11 Refill(s), Pharmacy: [facility] #[id number], 10 units SubCutaneous TIDAC Start Date: 01/31/14 Status: Ordered Xalatan 0.005% ophthalmic solution 1 drops, Eye-Both, Bedtime (once a day), # 2 mL, 5 Refill(s), Pharmacy: [facility] #[id number] Start Date: 11/21/14 Status: Ordered Results No [...] s Ordered: Office Visit Level 3 Est 16535
--- OUTSIDE RECORDS SUMMARY | 2016-06-23 06:52 | XMS REPORT | Continuity of Care Document ---
Author Author Pete Liriano MD Organization [facility] Address [address] [place] [address] Phone Care Team Providers Care Curtain Framer Name Role Phone Pete Liriano PP Unavailable Payers Payer name Insurance type Covered republican ID Authorization(s) Unknown Problems Condition Effective Dates (start - stop) Clinical Status Diabetes type 2, uncontrolled - *Chronic Hypertension - *Chronic Hypercholesterolemia - *Chronic BPH with urinary obstruction - *Chronic Urinary obstruction, not elsewhere classified - *Chronic DMII WO CMP UNCNTRLD - PURE HYPERCHOLESTEROLEM [...] hyperlipidemia - *Chronic Hypertension, Benign - *Chronic Primary open angle glaucoma - *Chronic Primary open angle glaucoma - Chronic BPH - *Chronic Erectile Dysfunction - *Chronic [...] Dosage Effective Dates (start - stop) Status Levemir Flexpen 100 unit/mL (3 mL) solution subcutaneous insulin pen inject 33 Unit by Subcutaneous route every day; increase by 1 unit daily if FBS > 120 - Active One Touch Ultra 2 kit Use as directed, for diabetes. - Active One Touch Ultra Test strips Test BSs daily. - Active Insulin Pen Needle 31 X 1/4" Use to inject levemir. - Active lisinopril 5 mg tablet Take 1 tablet by mouth daily - Active Lipitor 40 mg tablet Take 1 tablet by mouth at bedtime. - Active Xalatan 0.005 % eye drops Place 1 drop OU at bedtime. - Active Cialis 5 mg tablet take 1 tablet (5MG) by oral route every day 5 MG - Active metformin 1,000 mg tablet Take 1 tablet by mouth twice a day. - Active famotidine 20 mg tablet take 1 tablet (20MG) by oral route 2 times every day 20 MG - Active finasteride 5 mg tablet Take 1 tablet by mouth at bedtime. - Active Victoza 2-Lance 0.6 mg/0.1 mL (18 mg/3 mL) subcutaneous pen injector inject 1.8 mg subcutaneously every day. - Active Immunizations Vaccine Date Status Comments Flu (split) (3 yrs or older) completed Flu (split) (3 yrs or older) completed Tdap (Adacel ) completed - Completed reason: source unspecified Td (adult) completed - Completed reason: source unspecified Td (adult) completed - Completed reason: source unspecified pneumo (2 yrs or older) (PPV23) completed - Completed reason: source unspecified Zoster completed - Completed reason: source unspecified Results Test Name Date and Time Measure Units Reference Range Abnormal Flag Comments Unknown Vital Signs Date / Time: Height Weight Pulse Rate Blood Pressure Temperature /13:29:00 70.00 in 193.50 lbs 100 /min 146/88 mm[Hg] 97.2 F Procedures Procedure Date Unknown Encounters Encounter Location Date Patient Visit [facility] Patient Visit Conversion Patient Visit [facility] Urology Patient Visit [facility] Ophthamology Patient Visit [facility] Patient Visit [facility] Patient Visit [facility] Patient Visit [facility] Patient Visit [facility] Patient Visit [facility] Patient Visit [facility] Patient Visit [facility] Patient Visit [facility]ham[facility] Patient [facility] Patient Visit [facility] Patient [facility] Patient Visit [facility] Ophthamology Patient Visit [facility] Ophthamology Patient Visit [facility] Ophthamology Patient Visit [facility] Urology Patient Visit Conversion Advance Directives Directive Effective Date Unknown
--- OUTSIDE RECORDS SUMMARY | 2016-06-23 06:52 | XMS REPORT | Referral Summary ---
Author Author [facility], Family Medicine Organization [facility] Address Unknown Phone Unavailable Care Team Providers Care [employer] Supervisor Name Role Phone Josemanuel Liriano Primary Care Physician [phone] Encounter Date(s): 07/19/15 - 07/19/15 [facility], [address] [place] [address]- Discharge Disposition: 01-Home or Self Care Attending Physician: Pete Liriano MD Admitting Physician: Pete Liriano MD Vital Signs Most recent to 1 oldest [Reference Range]: Temperature Tympanic 36.4 degC [36.6-38.1 degC] *LOW* (07/19/15 2:05 PM) Apical Heart Rate 101 bpm [60-100 bpm] *HI* (07/19/15 2:05 PM) Blood Pressure 120/62 mmHg [90-140/60-90 mmHg] (07/19/15 2:05 PM) SpO2 97 % (07/19/15 2:05 PM) Problem List Condition Effective Dates Status Health [...] DAILY, # 30 tabs, 8 Refill(s), eRx: [facility] #[id number], TAKE ONE TABLET BY MOUTH DAILY Start Date: 03/25/15 Status: Ordered Crestor 10 mg oral tablet 5 mg 0.5 tabs, Oral, Daily, takes it 5 days/week, # 45 tabs, 3 Refill(s) Start Date: 07/19/15 Stop Date: 07/13/16 Status: Ordered finasteride 5 mg oral tablet See Instructions, TAKE ONE TABLET BY MOUTH EVERY NIGHT AT BEDTIME, # 90 tabs, eRx: [facility] #[id number], TAKE ONE TABLET BY MOUTH EVERY NIGHT AT BEDTIME Start Date: 05/15/15 Status: Ordered Levemir FlexTouch 100 units/mL subcutaneous solution See Instructions, INJECT 30 UNITS SUB-Q. INCREASE BY ONE UNIT PER DAY IF FASTING BLOOD SUGAR IS GREATER THAN 120., # 9 unknown unit, 5 Refill(s), eRx: [facility] #[id number], INJECT 30 UNITS SUB-Q. INCREASE BY ONE UNIT PER DAY IF FASTING BLOOD SUGAR... Start Date: 03/25/15 Status: Ordered metFORMIN 500 mg oral tablet, extended release 500 mg 1 tabs, Oral, Daily, # 30 tabs, 11 Refill(s) Start Date: 07/19/15 Status: Ordered NovoLOG FlexPen 100 units/mL subcutaneous solution See Instructions, INJECT 8 UNITS THREE TIMES A DAY BEFORE MEALS, # 15 unknown unit, 2 Refill(s), eRx: [facility] #[id number], INJECT 10 UNITS THREE TIMES A DAY BEFORE MEALS Start Date: 03/25/15 Status: Ordered Xalatan 0.005% ophthalmic solution 1 drops, Eye-Both, Bedtime (once a day), # 2 mL, 5 Refill(s), Pharmacy: [facility] #[id number] Start Date: 11/21/14 Status: Ordered Results Hematology Most recent to 1 oldest [Reference Range]: WBC [4.8-10.8 5.6 10*3/uL 10*3/uL] (07/19/15 2:55 PM) RBC [4.60-6.20] 5.08 (07/19/15 2:55 PM) Hgb [14.0-18.0 15.4 gm/dL gm/dL] (07/19/15 2:55 PM) Hct [42.0-52.0 %] 44.6 % (07/19/15 2:55 PM) MCV [82.0-99.0 fL] 87.8 fL (07/19/15 2:55 PM) MCH [27.0-32.0 pg] 30.3 pg (07/19/15 2:55 PM) MCHC [32.0-36.0 34.5 gm/dL gm/dL] (07/19/15 2:55 PM) RDW [11.5-14.5 %] 14.0 % (07/19/15 2:55 PM) Platelet [150-400 265 10*3/uL 10*3/uL] (07/19/15 2:55 PM) MPV [8.8-14.8 fL] 10.6 fL (07/19/15 2:55 PM) Immature 0.2 % Granulocytes (07/19/15 2:55 PM) [0.0-1.0 %] Neutrophils [51-75 68 % %] (07/19/15 2:55 PM) Lymphocytes [20-46 21 % %] (07/19/15 2:55 PM) Monocytes [4-11 %] 8 % (07/19/15 2:55 PM) Eosinophils [0-4 %] 2 % (07/19/15 2:55 PM) Basophils [0-2 %] 0 % (07/19/15 2:55 PM) Neutro Absolute 3.80 10*3 [1.90-7.00 10*3] (07/19/15 2:55 PM) Lymph Absolute 1.18 10*3 [0.80-3.30 10*3] (07/19/15 2:55 PM) [place] Absolute 0.45 10*3 [0.30-1.00 10*3] (07/19/15 2:55 PM) Eos Absolute 0.12 10*3 [0.00-0.50 10*3] (07/19/15 2:55 PM) Baso Absolute 0.01 10*3 [0.00-0.20 10*3] (07/19/15 2:55 PM) Chemistry Most recent to 1 oldest [Reference Range]: Sodium Lvl [135-144 139 mEq/L mEq/L] (07/19/15 2:55 PM) Potassium Lvl 3.9 mEq/L [3.5-5.2 mEq/L] (07/19/15 2:55 PM) Chloride [99-111 106 mEq/L mEq/L] (07/19/15 2:55 PM) CO2 [23-31 mEq/L] 26 mEq/L (07/19/15 2:55 PM) AGAP [3-20] 7 (07/19/15 2:55 PM) BUN [8-26 mg/dL] 14 mg/dL (07/19/15 2:55 PM) Glucose Lvl [70-99 115 mg/dL mg/dL] *HI* (07/19/15 2:55 PM) Creatinine Lvl 0.79 mg/dL [0.72-1.25 mg/dL] (07/19/15 2:55 PM) eGFR [>60 mL/min] >60 mL/min 1 (07/19/15 2:55 PM) Calcium Lvl 9.7 mg/dL [8.9-10.5 mg/dL] (07/19/15 2:55 PM) Albumin Lvl [3.4-4.8 4.2 gm/dL gm/dL] (07/19/15 2:55 PM) Total Protein 6.3 gm/dL [6.2-8.1 gm/dL] (07/19/15 2:55 PM) Globulin [1.8-4.0 2.1 gm/dL gm/dL] (07/19/15 2:55 PM) ALT [0-55 U/L] 16 U/L (07/19/15 2:55 PM) AST [5-34 U/L] 15 U/L (07/19/15 2:55 PM) Alk Phos [40-150 92 U/L U/L] (07/19/15 2:55 PM) Bili Total [0.2-1.2 0.5 mg/dL mg/dL] (07/19/15 2:55 PM) 1Result Comment: Multiply eGFR results by 1.21 [...] Patient Education Author: Pete Liriano MD Date: Family Medicine Benign Prostatic Hypertrophy The prostate gland is part of the reproductive system of men. A normal prostate is about the size and shape of a walnut. The prostate gland produces a fluid that is mixed with sperm to make semen. This gland surrounds the urethra and is located in front of the rectum and just below the bladder. The bladder is where urine is stored. The urethra is the tube through which urine passes from the bladder to get out of the body. The prostate grows as a man ages. An enlarged prostate not caused by cancer is called benign prostatic hypertrophy (BPH). An enlarged prostate can press on the urethra. This can make it harder to pass urine. In the early stages of enlargement, the bladder can get by with a narrowed urethra by forcing the urine through. If the problem gets worse, medical or surgical treatment may be required. This condition should be followed by your health care provider. The accumulation of urine in the bladder can cause infection. Back pressure and infection can progress to bladder damage and kidney (renal) failure. If needed, your health care provider may refer you to a specialist in kidney and prostate disease (urologist). CAUSES BPH is a common health problem in men older than 50 years. This condition is a normal part of aging. However, not all men will develop problems from this condition. If the enlargement grows away from the urethra, then there will not be any compression of the urethra and resistance to urine flow.If the growth is toward the urethra and compresses it, you will experience difficulty urinating. SYMPTOMS Not able to completely empty your bladder. Getting up often during the night to urinate. Need to urinate frequently during the day. Difficultly starting urine flow. Decrease in size and strength of your urine stream. Dribbling after urination. Pain on urination (more common with infection). Inability to pass urine. This needs immediate treatment. The development of a urinary tract infection. DIAGNOSIS These tests will help your health care provider understand your problem: A thorough history and physical examination. A urination history, with the number of times you urinate, the amounts of urine, the strength of the urine stream, and the feeling of emptiness or fullness after urinating. A postvoid bladder scan that measures any amount of urine that may remain in your bladder after you finish urinating. Digital rectal exam. In a rectal exam, your health care provider checks your prostate by putting a gloved, lubricated finger into your rectum to feel the back of your prostate gland. This exam detects the size of your gland and abnormal lumps or growths. Exam of your urine (urinalysis). Prostate specific antigen (PSA) screening. This is a blood test used to screen for prostate cancer. Rectal ultrasonography. This test uses sound waves to electronically produce a picture of your prostate gland. TREATMENT Once symptoms begin, your health care provider will monitor your condition. Of the men with this condition, one third will have symptoms that stabilize, one third will have symptoms that improve, and one third will have symptoms that progress in the first year. Mild symptoms may not need treatment. Simple observation and yearly exams may be all that is required. Medicines and surgery are options for more severe problems. Your health care provider can help you make an informed decision for what is best. Two classes of medicines are available for relief of prostate symptoms: Medicines that shrink the prostate. This helps relieve symptoms. These medicines take time to work, and it may be months before any improvement is seen. Uncommon side effects include problems with sexual function. Medicines to relax the muscle of the prostate. This also relieves the obstruction by reducing any compression on the urethra.This group of medicines work much faster than those that reduce the size of the prostate gland. Usually, one can experience improvement in days to weeks.. Side effects can include dizziness, fatigue, lightheadedness, and retrograde ejaculation (diminished volume of ejaculate). Several types of surgical treatments are available for relief of prostate symptoms: Transurethral resection of the prostate (TURP)In this treatment, an instrument is inserted through opening at the tip of the penis. It is used to cut away pieces of the inner core of the prostate. The pieces are removed through the same opening of the penis. This removes the obstruction and helps get rid of the symptoms. Transurethral incision (TUIP)In this procedure, small cuts are made in the prostate. This lessens the prostates pressure on the urethra. Transurethral microwave thermotherapy (TUMT)This procedure uses microwaves to create heat. The heat destroys and removes a small amount of prostate tissue. Transurethral needle ablation (TUNA)This is a procedure that uses radio frequencies to do the same as TUMT. Interstitial laser coagulation (ILC)This is a procedure that uses a laser to do the same as TUMT and TUNA. Transurethral electrovaporization (TUVP)This is a procedure that uses electrodes to do the same as the procedures listed above. SEEK MEDICAL CARE IF: You develop a fever. There is unexplained back pain. Symptoms are not helped by medicines prescribed. You develop side effects from the medicine you are taking. Your urine becomes very dark or has a bad smell. Your lower abdomen becomes distended and you have difficulty passing your urine. SEEK IMMEDIATE MEDICAL CARE IF: You are suddenly unable to urinate. This is an emergency. You should be seen immediately. There are large amounts of blood or clots in the urine. Your urinary problems become unmanageable. You develop lightheadedness, severe dizziness, or you feel faint. You develop moderate to severe low back or flank pain. You develop chills or fever. This information is not intended to replace advice given to you by your health care provider. Make sure you discuss any questions you have with your health care provider. Document Released: 03/29/2006 Document Revised: 04/03/2014 Document Reviewed: [facility] Patient Information 2015 [employer]. Diabetes and Foot Care Diabetes may cause you to have problems because of poor blood supply ( circulation) to your feet and legs. This may cause the skin on your feet to become thinner, break easier, and heal more slowly. Your skin may become dry, and the skin may peel and crack. You may also have nerve damage in your legs and feet causing decreased feeling in them. You may not notice minor injuries to your feet that could lead to infections or more serious problems. Taking care of your feet is one of the most important things you can do for yourself. HOME CARE INSTRUCTIONS Wear shoes at all times, even in the house. Do not go barefoot. Bare feet are easily injured. Check your feet daily for blisters, cuts, and redness. If you cannot see the bottom of your feet, use a mirror or ask someone for help. Wash your feet with warm water (do not use hot water) and mild soap. Then pat your feet and the areas between your toes until they are completely dry. Do not soak your feet as this can dry your skin. Apply a moisturizing lotion or petroleum jelly (that does not contain alcohol and is unscented) to the skin on your feet and to dry, brittle toenails. Do not apply lotion between your toes. Trim your toenails straight across. Do not dig under them or around the cuticle. File the edges of your nails with an emery board or nail file. Do not cut corns or calluses or try to remove them with medicine. Wear clean socks or stockings every day. Make sure they are not too tight. Do not wear knee-high stockings since they may decrease blood flow to your legs. Wear shoes that fit properly and have enough cushioning. To break in new shoes, wear them for just a few hours a day. This prevents you from injuring your feet. Always look in your shoes before you put them on to be sure there are no objects inside. Do not cross your legs. This may decrease the blood flow to your feet. If you find a minor scrape, cut, or break in the skin on your feet, keep it and the skin around it clean and dry. These areas may be cleansed with mild soap and water. Do not cleanse the area with peroxide, alcohol, or iodine. When you remove an adhesive bandage, be sure not to damage the skin around it. If you have a wound, look at it several times a day to make sure it is healing. Do not use heating pads or hot water bottles. They may burn your skin. If you have lost feeling in your feet or legs, you may not know it is happening until it is too late. Make sure your health care provider performs a complete foot exam at least annually or more often if you have foot problems. Report any cuts, sores, or bruises to your health care provider immediately. SEEK MEDICAL CARE IF: You have an injury that is not healing. You have cuts or breaks in the skin. You have an ingrown nail. You notice redness on your legs or feet. You feel burning or tingling in your legs or feet. You have pain or cramps in your legs and feet. Your legs or feet are numb. Your feet always feel cold. SEEK IMMEDIATE MEDICAL CARE IF: There is increasing redness, swelling, or pain in or around a wound. There is a red line that goes up your leg. Pus is coming from a wound. You develop a fever or as directed by your health care provider. You notice a bad smell coming from an ulcer or wound. This information is not intended to replace advice given to you by your health care provider. Make sure you discuss any questions you have with your health care provider. Document Released: 03/26/2001 Document Revised: 11/29/2013 Document Reviewed: [employer] Patient Information 2015 [employer]. Hypertension Hypertension, commonly called high blood pressure, is when the force of blood pumping through your arteries is too strong. Your arteries are the blood vessels that carry blood from your heart throughout your body. A blood pressure reading consists of a higher number over a lower number, such as 110/72. The higher number (systolic) is the pressure inside your arteries when your heart pumps. The lower number (diastolic) is the pressure inside your arteries when your heart relaxes. Ideally you want your blood pressure below 120/80. Hypertension forces your heart to work harder to pump blood. Your arteries may become narrow or stiff. Having hypertension puts you at risk for heart disease, stroke, and other problems. RISK FACTORS Some risk factors for high blood pressure are controllable. Others are not. Risk factors you cannot control include: Race. You may be at higher risk if you are . Age. Risk increases with age. Gender. Men are at higher risk than women before age 45 years. After age 65, women are at higher risk than men. Risk factors you can control include: Not getting enough exercise or physical activity. Being overweight. Getting too much fat, sugar, calories, or salt in your diet. Drinking too much alcohol. SIGNS AND SYMPTOMS Hypertension does not usually cause signs or symptoms. Extremely high blood pressure (hypertensive crisis) may cause headache, anxiety, shortness of breath , and nosebleed. DIAGNOSIS To check if you have hypertension, your health care provider will measure your blood pressure while you are seated, with your arm held at the level of your heart. It should be measured at least twice using the same arm. Certain conditions can cause a difference in blood pressure between your right and left arms. A blood pressure reading that is higher than normal on one occasion does not mean that you need treatment. If it is not clear whether you have high blood pressure, you may be asked to return on a different day to have your blood pressure checked again. Or, you may be asked to monitor your blood pressure at home for 1 or more weeks. TREATMENT Treating high blood pressure includes making lifestyle changes and possibly taking medicine. Living a healthy lifestyle can help lower high blood pressure. You may need to change some of your habits. Lifestyle changes may include: Following the DASH diet. This diet is high in fruits, vegetables, and whole grains. It is low in salt, red meat, and added sugars. Keep your sodium intake below 2,300 mg per day. Getting at least 3045 minutes of aerobic exercise at least 4 times per week. Losing weight if necessary. Not smoking. Limiting alcoholic beverages. Learning ways to reduce stress. Your health care provider may prescribe medicine if lifestyle changes are not enough to get your blood pressure under control, and if one of the following is true: Your systolic blood pressure is above 150. Your diastolic blood pressure is above 90. You have diabetes, and your systolic blood pressure is over 140 or your diastolic blood pressure is over 85. You have heart disease or have had a stroke or heart attack, and your blood pressure is above 130 over 80, which is written as 130/80. HOME CARE INSTRUCTIONS Have your blood pressure rechecked as directed by your health care provider. Take medicines only as directed by your health care provider. Follow the directions carefully. Blood pressure medicines must be taken as prescribed. The medicine does not work as well when you skip doses. Skipping doses also puts you at risk for problems. Do not smoke. Monitor your blood pressure at home as directed by your health care provider. SEEK MEDICAL CARE IF: You think you are having a reaction to medicines taken. You have recurrent headaches or feel dizzy. You have swelling in your ankles. You have trouble with your vision. SEEK IMMEDIATE MEDICAL CARE IF: You develop a severe headache or confusion. You have unusual weakness, numbness, or feel faint. You have severe chest or abdominal pain. You vomit repeatedly. You have trouble breathing. MAKE SURE YOU: Understand these instructions. Will watch your condition. Will get help right away if you are not doing well or get worse. This information is not intended to replace advice given to you by your health care provider. Make sure you discuss any questions you have with your health care provider. Document Released: 03/29/2006 Document Revised: 01/15/2015 Document Reviewed: [facility] Patient Information 2015 [facility] [place] [facility]. Heart Disease Prevention Heart disease is a leading cause of . There are many things you can do to help prevent heart disease. BE PHYSICALLY ACTIVE Physical activity is good for your heart. It helps control your blood pressure, cholesterol levels, and weight. Try to be physically active every day. Ask your health care provider what activities are best for you. BE A HEALTHY WEIGHT Extra weight can strain your heart and affect your blood pressure and cholesterol levels. Lose weight with diet and exercise if recommended by your health care provider. EAT HEART-HEALTHY FOODS Follow a healthy eating plan as recommended by your health care provider or dietitian. Heart-healthy foods include: High-fiber foods. These include oat bran, oatmeal, and whole-grain breads and cereals. Fruits and vegetables. Avoid: Alcohol. Fried foods. Foods high in saturated fat. These include meats, butter, whole dairy products, shortening, and coconut or palm oil. Salty foods. These include canned food, luncheon meat, salty snacks, and fast food. KEEP YOUR CHOLESTEROL LEVELS UNDER CONTROL Cholesterol is a substance that is used for many important functions. When your cholesterol levels are high, cholesterol can stick to the insides of your blood vessels, making them narrow or clog. This can lead to chest pain (angina) and a heart attack. Keep your cholesterol levels under control as recommended by your health care provider. Have your cholesterol checked at least once a year. Target cholesterol levels (in mg/dL) for most people are: Total cholesterol below 200. LDL cholesterol below 100. HDL cholesterol above 40 in men and above 50 in women. Triglycerides below 150. KEEP YOUR BLOOD PRESSURE UNDER CONTROL Having high blood pressure (hypertension) puts you at risk for stroke and other forms of heart disease. Keep your blood pressure under control as recommended by your health care provider. DO NOT USE TOBACCO PRODUCTS Tobacco smoke can damage your heart and blood vessels. Do not use any tobacco products including cigarettes, chewing tobacco, or electronic cigarettes. If you need help quitting, ask your health care provider. TAKE MEDICINES DIRECTED Take medicines only as directed by your health care provider. Ask your health care provider whether you should take an aspirin every day. Taking aspirin can help reduce your risk of heart disease and stroke. FOR MORE INFORMATION To find out more about heart disease, visit the [employer]'s website at www.americanheart.org This information is not intended to replace advice given to you by your health care provider. Make sure you discuss any questions you have with your health care provider. Document Released: 11/10/2004 Document Revised: 01/15/2015 Document Reviewed: [employer] Patient Information 2015 [facility]. No follow up information was provided. Extracted from: Title: DM, hyperlipidemia, BPH, HTN Author: Pete Liriano MD Date: Impression and Plan Diagnosis Diabetes mellitus type 2, uncontrolled (NVM17-LS E11.65, Working, Medical). Benign essential hypertension (UZG10-[id number] I10, Working, Medical). Combined hyperlipidemia (LZJ21-BC E78.2, Working, Medical). BPH with urinary obstruction (PQR41-KK N40.1, Working, Medical). Plan: 1) Restart Crestor at 5 mg 5 days/week. 2) Try Metformin ER 500 mg daily with food. 3) Continue your other meds the same. 4) Get lab today. 5) See me in 2 months and as needed.. Orders Orders (Selected) Outpatient Orders Ordered Office Visit Level 4 Est 47457: Future (On Hold) Albumin/Creatinine Ratio, Urine: CBC w/ Differential: CMP: Hgb A1c: Prescriptions Prescribed Crestor 10 mg oral tablet: 5 mg=0.5 tabs, Oral, Daily, for 90 days, takes it 5 days/week, 45 tabs, 3 Refill(s) metFORMIN 500 mg oral tablet, extended release: 500 mg=1 tabs, Oral, Daily, 30 tabs, 11 Refill(s). Dx/Order Association Plan: Diagnosis: BPH with urinary obstruction Comment: Ordered: Office Visit Level 4 Est [id number]; 07/19/15 14:43:00 CDT, Diabetes mellitus type 2, uncontrolled | Combined hyperlipidemia | BPH with urinary obstruction | Benign essential hypertension Diagnosis: Benign essential hypertension Comment: Ordered: Office Visit Level 4 Est [id number]; 07/19/15 14:43:00 CDT, Diabetes mellitus type 2, uncontrolled | Combined hyperlipidemia | BPH with urinary obstruction | Benign essential hypertension Diagnosis: Combined hyperlipidemia Comment: Ordered: Office Visit Level 4 Est [id number]; 07/19/15 14:43:00 CDT, Diabetes mellitus type 2, uncontrolled | Combined hyperlipidemia | BPH with urinary obstruction | Benign essential hypertension Diagnosis: Diabetes mellitus type 2, uncontrolled Comment: Ordered: Office Visit Level 4 Est [id number]; 07/19/15 14:43:00 CDT, Diabetes mellitus type 2, uncontrolled | Combined hyperlipidemia | BPH with urinary obstruction | Benign essential hypertension Diagnosis: Benign essential hypertension Comment: Diagnosis: Diabetes mellitus type 2, uncontrolled Comment: Diagnosis: Combined hyperlipidemia Comment: Diagnosis: Benign essential hypertension Comment: Diagnosis: Diabetes mellitus type 2, uncontrolled Comment: Diagnosis: Diabetes mellitus type 2, uncontrolled Comment: Additional Orders: Comment: Ordered: Crestor 10 mg oral tablet,5 mg 0.5 tabs, Oral, Daily, takes it 5 days/week, # 45 tabs, 3 Refill(s) Ordered: aspirin 81 mg oral tablet,81 mg 1 tabs, Oral, Daily, 0 Refill(s) Ordered: metFORMIN 500 mg oral tablet, extended release,500 mg 1 tabs, Oral, Daily, # 30 tabs, 11 Refill(s) End of Orders ."
--- OUTSIDE RECORDS SUMMARY | 2016-06-23 06:52 | XMS REPORT | Referral Summary ---
Author Author [facility], Family Medicine Organization [facility] Address Unknown Phone Unavailable Care Team Providers Care Buying Agent Name Role Phone Josemanuel Liriano Primary Care Physician [phone] Encounter VC Date(s): 11/07/15 - 11/07/15 [facility] [address] [place] [id number]- Discharge Disposition: 01-Home or Self Care Attending Physician: Pete Liriano MD Admitting Physician: Pete Liriano MD Vital Signs Most recent to 1 oldest [Reference Range]: Temperature Tympanic 36.4 degC [36.6-38.1 degC] *LOW* (11/07/15 8:47 AM) Peripheral Pulse 100 bpm Rate [60-100 bpm] (11/07/15 8:47 AM) Blood Pressure 128/68 mmHg [90-140/60-90 mmHg] (11/07/15 8:47 AM) Problem List Condition Effective Dates Status [...] DAILY, # 30 tabs, 8 Refill(s), [id number], TAKE ONE TABLET BY MOUTH DAILY Start Date: 03/25/15 Status: Ordered Crestor 10 mg oral tablet 5 mg 0.5 tabs, Oral, Daily, takes it 5 days/week, # 45 tabs, 3 Refill(s) Start Date: 07/19/15 Stop Date: 07/13/16 Status: Ordered finasteride 5 mg oral tablet 5 mg 1 tabs, Oral, Daily, at bedtime, # 90 tabs, 0 Refill(s), Pharmacy: [email or web address] [id number], 1 tabs Oral Daily,Instr:at bedtime Start Date: 08/28/15 Status: Ordered ibuprofen 400 mg, Oral, Bedtime (once a day), for right knee pain, 0 Refill(s) Start Date: 09/23/15 Status: Ordered Levemir FlexTouch 100 units/mL subcutaneous solution See Instructions, INJECT 30 UNITS SUB-Q. INCREASE BY ONE UNIT PER DAY IF FASTING BLOOD SUGAR IS GREATER THAN 120., # 15 mL, 1 Refill(s), Pharmacy: [email or web address] [id number], INJECT 30 UNITS SUB-Q. INCREASE BY ONE UNIT PER DAY IF FASTING BLOOD SUGAR I... Start Date: 08/02/15 Status: Ordered lisinopril 5 mg oral tablet 5 mg 1 tabs, Oral, Daily, # 90 tabs, 3 Refill(s), Pharmacy: [email or web address] [id number], 1 tabs Oral Daily Start Date: 09/23/15 Status: Ordered metFORMIN 500 mg oral tablet, extended release 1,000 mg 2 tabs, Oral, Daily, # 180 tabs, 11 Refill(s), Pharmacy: [email or web address] [id number], 2 tabs Oral Daily,x90 days Start Date: 09/23/15 Stop Date: 09/07/18 Status: Ordered NovoLOG FlexPen 100 units/mL subcutaneous solution See Instructions, INJECT 8 UNITS THREE TIMES A DAY BEFORE MEALS/PLEASE DISPENSE A 90 DAY SUPPLY., # 30 mL, 1 Refill(s), Pharmacy: [id number], INJECT 8 UNITS THREE TIMES A DAY BEFORE MEALS/PLEASE DISPENSE A 90 DAY SUPPLY. Start Date: 08/02/15 Status: Ordered Xalatan 0.005% ophthalmic solution 1 drops, Eye-Both, Bedtime (once a day), # 2 mL, 5 Refill(s), Pharmacy: [email or web address] #[id number] Start Date: 11/21/14 Status: Ordered Results No [...] prior adenomatous polyps, repeat in 5 years 2and 2003 3left 4left hand laceration repair Social History Social History Type Response Smoking Status Former smoker; Type: Cigarettes; Tobacco use per day: Smoked 2 packs a day; Number of years: 301 1Quit in 1998 Assessment and Plan Extracted from: Title: Ambulatory Patient Education Author: Pete Liriano MD Date: 11/06 Family Medicine Diabetes and Standards of Medical Care Diabetes is complicated. You may find that your diabetes team includes a dietitian, nurse, paraeducator, eye doctor, and more. To help everyone know what is going on and to help you get the care you deserve, the following schedule of care was developed to help keep you on track. Below are the tests, exams, vaccines, medicines, education, and plans you will need. HbA1c test This test shows how well you have controlled your glucose over the past 23 months. It is used to see if your diabetes management plan needs to be adjusted. It is performed at least 2 times a year if you are meeting treatment goals. It is performed 4 times a year if therapy has changed or if you are not meeting treatment goals. Blood pressure test This test is performed at every routine medical visit. The goal is less than 140/90 mm Hg for most people, but 130/80 mm Hg in some cases. Ask your health care provider about your goal. Dental exam Follow up with the dentist regularly. Eye exam If you are diagnosed with type 1 diabetes as a child, get an exam upon reaching the age of 10 years or older and having had diabetes for 35 years. Yearly eye exams are recommended after that initial eye exam. If you are diagnosed with type 1 diabetes as an adult, get an exam within 5 years of diagnosis and then yearly. If you are diagnosed with type 2 diabetes, get an exam as soon as possible after the diagnosis and then yearly. Foot care exam Visual foot exams are performed at every routine medical visit. The exams check for cuts, injuries, or other problems with the feet. You should have a complete foot exam performed every year. This exam includes an inspection of the structure and skin of your feet, a check of the pulses in your feet, and a check of the sensation in your feet. Type 1 diabetes: The first exam is performed 5 years after diagnosis. Type 2 diabetes: The first exam is performed at the time of diagnosis. Check your feet nightly for cuts, injuries, or other problems with your feet. Tell your health care provider if anything is not healing. Kidney function test (urine microalbumin) This test is performed once a year. Type 1 diabetes: The first test is performed 5 years after diagnosis. Type 2 diabetes: The first test is performed at the time of diagnosis. A serum creatinine and estimated glomerular filtration rate (eGFR) test is done once a year to assess the level of chronic kidney disease (CKD), if present. Lipid profile (cholesterol, HDL, LDL, triglycerides) Performed every 5 years for most people. The goal for LDL is less than 100 mg/dL. If you are at high risk, the goal is less than 70 mg/dL. The goal for HDL is 40 mg/dL50 mg/dL for men and 50 mg/dL60 mg/dL for women. An HDL cholesterol of 60 mg/dL or higher gives some protection against heart disease. The goal for triglycerides is less than 150 mg/dL. Immunizations The flu (influenza) vaccine is recommended yearly for every person 6 months of age or older who has diabetes. The pneumonia (pneumococcal) vaccine is recommended for every person 2 years of age or older who has diabetes. Adults 65 years of age or older may receive the pneumonia vaccine as a series of two separate shots. The hepatitis B vaccine is recommended for adults shortly after they have been diagnosed with diabetes. The Tdap (tetanus, diphtheria, and pertussis) vaccine should be given: According to normal childhood vaccination schedules, for children. Every 10 years, for adults who have diabetes. Diabetes self-management education Education is recommended at diagnosis and ongoing as needed. Treatment plan Your treatment plan is reviewed at every medical visit. This information is not intended to replace advice given to you by your health care provider. Make sure you discuss any questions you have with your health care provider. Document Released: 01/24/2010 Document Revised: 04/19/2015 Document Reviewed: [facility] Patient Information 2016 [employer] [facility]. No follow up information was provided. Extracted from: Title: DM,HTN Author: Pete Liriano MD Date: 11/07/15 Impression and Plan Diagnosis Benign essential hypertension (YRT76-FP I10, Working, Medical). Combined hyperlipidemia (HXE97-SR E78.2, Working, Medical). BPH (benign prostatic hypertrophy) with urinary obstruction (HPL30-IC N40.1, Working, Medical). Nephropathy, diabetic (ZYO24-AF E11.21, Working, Medical). Right knee pain (BRC23-RI M25.561, Working, Medical). Controlled type 2 diabetes mellitus (YXH60-XK E11.9, Working, Medical). Plan: 1) Continue your current meds. 2) See me in 6 months and as needed. 3) Get you flu shot this fall. 4) Stop the Ibuprofen.. Orders Orders (Selected) Outpatient Orders Ordered Office Visit Level 4 Est 30965: . Dx/Order Association Plan: Diagnosis: BPH (benign prostatic hypertrophy) with urinary obstruction Comment: Ordered: Office Visit Level 4 Est 09175; 11/07/15 9:04:00 CDT, Benign essential hypertension | Controlled type 2 diabetes mellitus | Combined hyperlipidemia | BPH (benign prostatic hypertrophy) with urinary obstruction | Right knee pain Diagnosis: Benign essential hypertension Comment: Ordered: Office Visit Level 4 Est 95039; 11/07/15 9:04:00 CDT, Benign essential hypertension | Controlled type 2 diabetes mellitus | Combined hyperlipidemia | BPH (benign prostatic hypertrophy) with urinary obstruction | Right knee pain Diagnosis: Combined hyperlipidemia Comment: Ordered: Office Visit Level 4 Est 86620; 11/07/15 9:04:00 CDT, Benign essential hypertension | Controlled type 2 diabetes mellitus | Combined hyperlipidemia | BPH (benign prostatic hypertrophy) with urinary obstruction | Right knee pain Diagnosis: Controlled type 2 diabetes mellitus Comment: Ordered: Office Visit Level 4 Est 05203; 11/07/15 9:04:00 CDT, Benign essential hypertension | Controlled type 2 diabetes mellitus | Combined hyperlipidemia | BPH (benign prostatic hypertrophy) with urinary obstruction | Right knee pain Diagnosis: Nephropathy, diabetic Comment: Diagnosis: Right knee pain Comment: Ordered: Office Visit Level 4 Est 05584; 11/07/15 9:04:00 CDT, Benign essential hypertension | Controlled type 2 diabetes mellitus | Combined hyperlipidemia | BPH (benign prostatic hypertrophy) with urinary obstruction | Right knee pain End of Orders ."
--- OUTSIDE RECORDS SUMMARY | 2016-06-23 06:52 | XMS REPORT | Referral Summary ---
Author Author [facility], Family Medicine Organization [facility] Address Unknown Phone Unavailable Care Team Providers Care Dispatch Manager Name Role Phone Josemanuel Liriano Primary Care Physician [phone] Encounter VC Date(s): 05/09/15 - 05/09/15 [facility], [address] [place] [address] Discharge Diagnosis: Diabetes mellitus type 2, uncontrolled Discharge Disposition: 01-Home or Self Care Attending Physician: Pete Liriano MD Admitting Physician: Pete Liriano MD Vital Signs Most recent to 1 oldest [Reference Range]: Temperature Tympanic 36.0 degC [36.6-38.1 degC] *LOW* (05/09/15 8:25 AM) Peripheral Pulse 108 bpm Rate [60-100 bpm] *HI* (05/09/15 8:25 AM) Respiratory Rate 20 br/min [14-20 br/min] (05/09/15 8:25 AM) Blood Pressure 132/80 mmHg [90-140/60-90 mmHg] (05/09/15 8:25 AM) Problem List Condition Effective Dates Status [...] DAILY, # 30 tabs, 8 Refill(s), eRx: [facility] #[id number], TAKE ONE TABLET BY MOUTH DAILY Start Date: 03/25/15 Status: Ordered Crestor 20 mg oral tablet 0.25 tabs, Oral, 3x/Wk, # 30 tabs, 0 Refill(s), Pharmacy: [facility] # [id number], 0.25 tabs Oral 3x/Wk Start Date: 05/03/14 Status: Ordered finasteride 5 mg oral tablet 5 mg 1 tabs, Oral, Bedtime (once a day), # 90 tabs, 0 Refill(s), Pharmacy: [facility] #[id number], 1 tabs Oral Bedtime (once a day),x90 days Start Date: 02/01/15 Stop Date: 05/02/15 Status: Ordered Levemir FlexTouch 100 units/mL subcutaneous solution See Instructions, INJECT 30 UNITS SUB-Q. INCREASE BY ONE UNIT PER DAY IF FASTING BLOOD SUGAR IS GREATER THAN 120., # 9 unknown unit, 5 Refill(s), eRx: [facility] #[id number], INJECT 30 UNITS SUB-Q. INCREASE BY ONE [...] Date: 02/06/15 Stop Date: 02/01/16 Status: Ordered NovoLOG FlexPen 100 units/mL subcutaneous solution See Instructions, INJECT 8 UNITS THREE TIMES A DAY BEFORE MEALS, # 15 unknown unit, 2 Refill(s), eRx: [facility] #[id number], INJECT 10 UNITS THREE TIMES A DAY BEFORE MEALS Start Date: 03/25/15 Status: Ordered Xalatan 0.005% ophthalmic solution 1 drops, Eye-Both, Bedtime (once a day), # 2 mL, 5 Refill(s), Pharmacy: [facility] #[id number] Start Date: 11/21/14 Status: Ordered Results Hematology Most recent to 1 oldest [Reference Range]: WBC [4.8-10.8 5.4 10*3/uL 10*3/uL] (05/09/15 9:10 AM) RBC [4.60-6.20] 5.30 (05/09/15 9:10 AM) Hgb [14.0-18.0 15.9 gm/dL gm/dL] (05/09/15 9:10 AM) Hct [42.0-52.0 %] 46.0 % (05/09/15 9:10 AM) MCV [82.0-99.0 fL] 86.8 fL (05/09/15 9:10 AM) MCH [27.0-32.0 pg] 30.0 pg (05/09/15 9:10 AM) MCHC [32.0-36.0 34.6 gm/dL gm/dL] (05/09/15 9:10 AM) RDW [11.5-14.5 %] 13.1 % (05/09/15 9:10 AM) Platelet [150-400 234 10*3/uL 10*3/uL] (05/09/15 9:10 AM) MPV [8.8-14.8 fL] 10.5 fL (05/09/15 9:10 AM) Immature 0.2 % Granulocytes (05/09/15 9:10 AM) [0.0-1.0 %] Neutrophils [51-75 65 % %] (05/09/15 9:10 AM) Lymphocytes [20-46 22 % %] (05/09/15 9:10 AM) Monocytes [4-11 %] 9 % (05/09/15 9:10 AM) Eosinophils [0-4 %] 4 % (05/09/15 9:10 AM) Basophils [0-2 %] 0 % (05/09/15 9:10 AM) Neutro Absolute 3.55 10*3 [1.90-7.00 10*3] (05/09/15 9:10 AM) Lymph Absolute 1.21 10*3 [0.80-3.30 10*3] (05/09/15 9:10 AM) [facility] Absolute 0.46 10*3 [0.30-1.00 10*3] (05/09/15 9:10 AM) Eos Absolute 0.19 10*3 [0.00-0.50 10*3] (05/09/15 9:10 AM) Baso Absolute 0.02 10*3 [0.00-0.20 10*3] (05/09/15 9:10 AM) Chemistry Most recent to 1 oldest [Reference Range]: Sodium Lvl [135-144 137 mEq/L mEq/L] (05/09/15 9:10 AM) Potassium Lvl 4.5 mEq/L [3.5-5.2 mEq/L] (05/09/15 9:10 AM) Chloride [99-111 103 mEq/L mEq/L] (05/09/15 9:10 AM) CO2 [23-31 mEq/L] 27 mEq/L (05/09/15 9:10 AM) AGAP [3-20] 7 (05/09/15 9:10 AM) BUN [8-26 mg/dL] 16 mg/dL (05/09/15 9:10 AM) Glucose Lvl [70-99 239 mg/dL mg/dL] *HI* (05/09/15 9:10 AM) Creatinine Lvl 0.85 mg/dL [0.72-1.25 mg/dL] (05/09/15 9:10 AM) eGFR [>60 mL/min] >60 mL/min 1 (05/09/15 9:10 AM) Calcium Lvl 9.5 mg/dL [8.9-10.5 mg/dL] (05/09/15 9:10 AM) Albumin Lvl [3.4-4.8 4.1 gm/dL gm/dL] (05/09/15 9:10 AM) Total Protein 6.5 gm/dL [6.2-8.1 gm/dL] (05/09/15 9:10 AM) Globulin [1.8-4.0 2.4 gm/dL gm/dL] (05/09/15 9:10 AM) ALT [0-55 U/L] 27 U/L (05/09/15 9:10 AM) AST [5-34 U/L] 18 U/L (05/09/15 9:10 AM) Alk Phos [40-150 91 U/L U/L] (05/09/15 9:10 AM) Bili Total [0.2-1.2 0.4 mg/dL mg/dL] (05/09/15 9:10 AM) LDL Direct [0-129 104 mg/dL mg/dL] (05/09/15 9:10 AM) Hgb A1c [4.1-5.6 %] 8.3 % *HI* (05/09/15 9:10 AM) eAvg Glucose 191.5 mg/dL (05/09/15 9:10 AM) 1Result Comment: Multiply eGFR results [...] Patient Education Author: Pete Liriano MD Date: 05/09 Family Medicine Diabetes and Exercise Exercising regularly is important. [...] ACTIVITY PLAN Choose an activity that you enjoy and set realistic goals. Your health care provider or recruiting assistant can help you make an activity plan that works for you. Exercise regularly as directed by your health care provider. This includes: Performing resistance training twice a week such as push-ups, sit-ups, lifting weights, or using resistance bands. Performing 150 minutes of cardio exercises each week such as walking, running, or playing sports. Staying active and spending no more than 90 minutes at one time being inactive. Even short bursts of exercise are good for you. Three 10-minute sessions spread throughout the day are just as beneficial as a single 30-minute session. Some exercise ideas include: Taking the dog for a walk. Taking the stairs instead of the elevator. Dancing to your favorite song. Doing an exercise video. Doing your favorite exercise with a friend. RECOMMENDATIONS FOR EXERCISING WITH TYPE 1 OR [...] type of activity is better than none. Document Released: 06/18/2004 Document Revised: 08/13/2014 Document Reviewed: [facility] Patient Information 2015 [facility]. This information is not intended to replace advice given to you by your health care provider. Make sure you discuss any questions you have with your health care provider. Diabetes and Foot Care Diabetes may cause [...] smell coming from an ulcer or wound. Document Released: 03/26/2001 Document Revised: 11/29/2013 Document Reviewed: [employer] Patient Information 2015 [employer]. This information is not intended to replace advice given to you by your health care provider. Make sure you discuss any questions you have with your health care provider. No follow up information was provided. Extracted from: Title: DM, right knee arthritis, Author: Pete Liriano MD Date: 05/09/15 HTN Impression and Plan Diagnosis Diabetes mellitus type 2, uncontrolled (ZIT52-YW E11.65, Working, Medical). Benign essential hypertension (SEQ77-WE I10, Working, Medical). Combined hyperlipidemia (EWI85-OK E78.2, Working, Medical). BPH (benign prostatic hypertrophy) with urinary obstruction (DHB35-IY N40.1, Working, Medical). 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 Primary osteoarthritis of right knee (PRY45-MH M17.11, Working, Medical). Diabetic nephropathy (XEF09-HU E11.21, Working, Medical). Plan: 1) ECG, CXR and lab done today. 2) Continue your current meds. 3) You may take your Levemir prior to surgery, but hold the Novolog the day of surgery. 4) Healthy diet and daily exercise helps most things. 5) You have medical clearance for right knee surgery.. Orders Orders (Selected) Outpatient Orders Ordered Electrocardiogram, Routine Ecg With At Least 12 Leads; Interpretation And Report Only [id number]: Office Visit Level 5 Est 09455: Future (On Hold) Albumin/Creatinine Ratio, Urine: CBC w/ Differential: CMP: Hgb A1c: LDL Direct: XR Chest 2 Views: . Dx/Order Association Plan: Diagnosis: BPH (benign prostatic hypertrophy) with urinary obstruction Comment: Diagnosis: Benign essential hypertension Comment: Ordered: Office Visit Level 5 Est 05453; 05/09/15 8:34:00 SHINGLE SAWYER, Diabetes mellitus type 2, uncontrolled | Benign essential hypertension | Combined hyperlipidemia | Primary osteoarthritis of right knee Electrocardiogram, Routine Ecg With At Least 12 Leads; Interpretation And Report Only 02100; 05/09/15 8:30:00 SHINGLE SAWYER, 1, Benign essential hypertension Diagnosis: Combined hyperlipidemia Comment: Ordered: Office Visit Level 5 Est 84023; 05/09/15 8:34:00 SHINGLE SAWYER, Diabetes mellitus type 2, uncontrolled | Benign essential hypertension | Combined hyperlipidemia | Primary osteoarthritis of right knee Diagnosis: Diabetes mellitus type 2, uncontrolled Comment: Ordered: Office Visit Level 5 Est 15069; 05/09/15 8:34:00 SHINGLE SAWYER, Diabetes mellitus type 2, uncontrolled | Benign essential hypertension | Combined hyperlipidemia | Primary osteoarthritis of right knee Diagnosis: Diabetic nephropathy Comment: Diagnosis: Impotence, organic Comment: Diagnosis: Primary osteoarthritis of right knee Comment: Ordered: Office Visit Level 5 Est 54975; 05/09/15 8:34:00 SHINGLE SAWYER, Diabetes mellitus type 2, uncontrolled | Benign essential hypertension | Combined hyperlipidemia | Primary osteoarthritis of right knee Diagnosis: Combined hyperlipidemia Comment: Diagnosis: Benign essential hypertension Comment: Diagnosis: Diabetes mellitus type 2, uncontrolled Comment: Diagnosis: Diabetes mellitus type 2, uncontrolled Comment: Diagnosis: Diabetic nephropathy Comment: Diagnosis: Benign essential hypertension Comment: Diagnosis: Diabetes mellitus type 2, uncontrolled Comment: Diagnosis: Combined hyperlipidemia Comment: Diagnosis: Benign essential hypertension Comment: Diagnosis: Diabetes mellitus type 2, uncontrolled Comment: End of Orders ."
--- OUTSIDE RECORDS SUMMARY | 2016-06-23 06:52 | XMS REPORT | Continuity of Care Document ---
Author Author Dereck [place], [facility] Ambulatory Address [address] [place] [address] Phone Care Team Providers Care Neurosurgery Physician Name Role Phone Pete Liriano PP Unavailable Payers Payer name Insurance type Covered green party ID Authorization(s) Unknown Problems Condition Effective Dates (start - stop) Clinical Status Primary open angle glaucoma - *Chronic Primary open angle glaucoma - Chronic DMII WO CMP UNCNTRLD - PURE HYPERCHOLESTEROLEM - BENIGN HYPERTENSION - BPH W URINARY OBS/LUTS - NOD PROSTATE W/O UR OBST - OSTEOARTHROS NOS-ANKLE - Wasp sting - *Acute Cellulitis, finger - Diabetes type 2, controlled - *Chronic Hypertension - *Chronic Unspecified cellulitis and abscess of finger - *Acute Diabetes type 2, uncontrolled - *Chronic Hyperlipidemia - *Chronic Hypertension - *Chronic BPH with urinary obstruction - *Chronic Urinary obstruction, not elsewhere classified - *Chronic Diabetes type 2, uncontrolled - *Chronic Hypertension - *Chronic Other and unspecified hyperlipidemia - *Chronic BPH with urinary obstruction - *Chronic Urinary Obstruction, Not Elsewhere Classified - *Chronic Organic impotence - *Chronic Influenza Vaccine - Hypertension, Benign [...] BPH - *Chronic Erectile Dysfunction - *Chronic Hyperlipidemia, NOS - *Chronic Hypertension, benign - *Chronic 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 Other and unspecified hyperlipidemia - *Chronic Tension headache - *Chronic Diabetes Mellitus, Adult Onset, Uncontrolled - *Chronic BPH - *Controlled Diabetes Mellitus Type 2, Uncomplicated - *Controlled Erectile Dysfunction - *Controlled Hypertension, Unspecified - *Controlled Diabetes type 2, uncontrolled - *Chronic Hypertension - *Chronic Hypercholesterolemia - *Chronic BPH with urinary obstruction - *Chronic Urinary obstruction, not elsewhere classified - *Chronic Osteoarthritis of right knee - *Chronic Hypercholesterolemia [...] - stop) Status One Touch Ultra 2 kit Use as [...] 1 drop OU at bedtime. - Active metformin 1,000 mg tablet Take [...] 1.8 mg subcutaneously every day. - Active Levitra 10 mg tablet take 1 tablet (10MG) by oral route up to twice a week, as needed. - Active Levemir Flexpen 100 unit/mL (3 mL) solution subcutaneous insulin pen inject 36 Unit by Subcutaneous route every day; increase by 1 unit daily if FBS > 120 - Active aspirin 81 mg tablet,delayed release take 1 tablet (81MG) by oral route every day 81 MG - Active Immunizations Vaccine Date Status Comments Flu (split) (3 yrs or older) completed Flu (split) (3 yrs or older) completed Tdap (Adacel ) completed - Completed reason: source unspecified Td (adult) completed - Completed reason: source unspecified Zoster completed - Completed reason: source unspecified Td (adult) completed - Completed reason: source unspecified pneumo (2 yrs or older) (PPV23) completed - Completed reason: source unspecified Results Test Name Date and Time Measure Units Reference Range Abnormal Flag Comments Unknown Vital Signs Date / Time: Height Weight Pulse Rate Blood Pressure Temperature Unknown Procedures Procedure Date Unknown Encounters Encounter Location Date Patient Visit [facility] Ophthamology Patient Visit Conversion Patient Visit [facility] Urology Patient Visit [facility] Patient Visit [facility] Patient Visit [facility] Patient Visit [facility] Patient Visit [facility] Patient Visit [facility] Patient Visit [facility] Patient Visit [facility] Patient Visit [facility] Patient Visit [facility] Patient Visit [facility] Patient Visit [facility] Patient Visit [facility] Patient Visit [facility] Patient Visit [facility] Patient Visit [facility] Ophthamology Patient Visit [facility] Ophthamology Patient Visit [facility] Ophthamology Patient Visit [facility] Urology Patient Visit Conversion Advance Directives Directive Effective Date Unknown
--- OUTSIDE RECORDS SUMMARY | 2016-06-23 06:52 | XMS REPORT | Referral Summary ---
Author Author [facility] Organization [facility] Address Unknown Phone Unavailable Care Team Providers Care Mold Filler And Drainer Name Role Phone Josemanuel Liriano Primary Care Physician [phone] Encounter Date(s): 10/04/14 - 10/04/14 [facility] [address] [place] [address] JONAS Mercedes [id number]- [place] Discharge Diagnosis: BPH [...] Daily, # 30 tabs, 1 Refill(s), Pharmacy: [facility] # [id number], 1 tabs Oral Daily Start Date: 12/28/14 Status: Ordered Crestor 20 mg oral tablet 0.25 tabs, Oral, 3x/Wk, # 30 tabs, 0 Refill(s), Pharmacy: [facility] # [id number], 0.25 tabs Oral 3x/Wk Start Date: 05/03/14 Status: Ordered finasteride 5 mg oral tablet 5 mg 1 tabs, Oral, Bedtime (once a day), # 90 tabs, 0 Refill(s), Pharmacy: [facility] #[id number], 1 tabs Oral Bedtime (once a day),x90 days Start Date: 02/01/15 Stop Date: 05/02/15 Status: Ordered Levemir FlexTouch 100 units/mL subcutaneous solution See Instructions, INJECT 30 UNITS UNDER THE SKIN DAILY - INCREASE BY 1 UNIT DAILY IF FASTING BLOOD SUGAR IS GREATER THAN 120., # 15 unknown unit, eRx: [facility] #[id number], INJECT 30 UNITS UNDER THE SKIN DAILY [...] # 15 mL, 11 Refill(s), Pharmacy: [facility] #[id number], 10 units SubCutaneous TIDAC Start Date: 01/31/14 Status: Ordered Xalatan 0.005% ophthalmic solution 1 drops, Eye-Both, Bedtime (once a day), # 2 mL, 5 Refill(s), Pharmacy: [facility] #[id number] Start Date: 11/21/14 Status: Ordered Results No [...] s Ordered: Office Visit Level 3 Est [id number]
--- OUTSIDE RECORDS SUMMARY | 2016-06-23 06:53 | XMS REPORT | Continuity of Care Document ---
Author Author [facility] Organization [facility] Address Unknown Phone Unavailable Support Name Relationship Address Phone ESTEFANIA SOW MD Caregiver [address] [place] [address] Unavailable MIKE BERNAL Caregiver [address] [place] [address] Unavailable ANKITA LEE Next Of Kin [address] [place] [address] Insurance Providers Guarantor Polo Lee Address [address] [place], [place] [id number] Email [email or web address] [facility] Policy Number [id number] Subscriber's Name Polo Lee Relationship 18 Self Group Number [id number] Effective Date 11 Problems Active Problems Medical Problem Onset Date Status DMII (diabetes mellitus, type 2) Unknown Chronic Degenerative arthritis of right knee Unknown Chronic Glaucoma Unknown Hypertension Unknown Overweight (BMI 25.0-29.9) Unknown Medications Current Home Medications Medication Dose Units Route Directions Days Qty Instructions Start Date Acetaminophen (Tylenol) 325 Mg Tablet 650 Mg Oral Four Times Daily 100 Tablet 05/29/15 Aspirin (Ecotrin) 325 Mg Tablet 325 Mg Oral Twice A Day 84 Tablet 05/29/15 Empagliflozin (Jardiance) 10 Mg Tablet 1 Tab Oral Daily 05/28/15 Finasteride 5 Mg Tablet 1 Tab Oral Bedtime 04/22/15 Ibuprofen/Diphenhydramine Cit (Motrin Pm Caplet) 1 Each Tablet 2 Cap Oral Bedtime 05/22/15 Insulin Aspart (Novolog Flexpen) 1 Unit Pen 8-10 Unit Sub-Q Before Meals 04/22/15 Insulin Detemir (Levemir Flextouch) 100 Unit/1 Ml Insuln.pen 30 Unit Sub-Q Bedtime 04/22/15 Latanoprost 2.5 Ml Drops 1 Drop Both Eyes Bedtime 04/22/15 Lisinopril 10 Mg Tablet 10 Mg Oral Daily as needed for Hypertension 06/07/08 Metformin Hcl 1,000 Mg Tablet 1 Tab Oral Twice Daily With Meals Take one tablet, by mouth, twice daily with meals 04/22/15 Polyethylene Glycol 3350 (Miralax) 17 Gm Packet 17 Gm Oral Daily 30 Packet 05/29/15 Rosuvastatin Calcium (Crestor) 20 Mg Tablet 0.25 Tab Oral 3XWK Take 1 tablet, by mouth, one time a day at bedtime. 04/22/15 Tadalafil (Cialis) 5 Mg Tablet 1 Tab Oral Dailyprn 04/22/15 Tramadol Hcl (Ultram) 50 Mg Tablet 50-100 Mg Oral Every 6 Hours as needed for Pain 60 Tablet 05/29/15 Past Home Medications Medication Directions Ordered Status Aspirin 81 Mg Tablet, 81 Mg Oral Daily 02/05/11 Discontinued Insulin Detemir (Levemir) 100 U/Ml Insuln.pen, 12 Units Sub-Q Daily 06/07/08 Discontinued Social History Social History Problem Response Recorded Date/Time Onset Date Status Hx Substance Use No 05/28/2015 9:19am Not Applicable Not Applicable Hx Alcohol Use Y 1-2X WEEK 05/28/2015 9:19am Not Applicable Not Applicable Has the pt used tobacco in the last 12 months No 05/28/2015 9:19am Not Applicable Not Applicable Hospital Discharge Instructions Current inpatient/outpatient. Discharge instructions are currently unavailable. Plan of Care Current inpatient/outpatient. The plan of care is currently unavailable Functional Status No functional status results. Allergies, Adverse Reactions, Alerts Allergen Type Severity Reaction Status Last Updated Simvastatin Adverse Reaction Unknown SEVERE MYALGIA Active 04/22/15 Immunizations Query Response on File Recorded Date/Time Hx Influenza Vaccination Y -201405/28/15 9:19am Hx Pneumococcal Vaccination FALL 201105/28/15 9:19am Hx Tetanus, Diptheria, Pertussis Y 200910/31/12 2:38pm Hx Influenza Vaccination Y -201405/28/15 9:19am Hx Tetanus Diptheria Y 2-3 YEARS AGO 10/31/12 2:38pm Hx Tetanus, Diptheria, Pertussis Y 200910/31/12 2:38pm Influenza Vaccine Hx FALL OF 201405/28/15 2:12pm Vital Signs No known vital signs results. Results Laboratory Results Test Name Result Units Flags Reference Collection Date/Time Result Date/ Time Comments White Blood Count 5.8 T/MM3 4.5-11.0 09/13/2015 10:09/13/2015 10: 31am Red Blood Count 5.32 M/MM3 4.50-5.90 09/13/2015 10:09/13/2015 10: 31am Hemoglobin 16.0 GM/DL 13.5-17.5 09/13/2015 10:09/13/2015 10:31am Hematocrit 47.3 % 41-53 09/13/2015 10:09/13/2015 10:31am Mean Corpuscular Volume 88.9 UM3 80-100 09/13/2015 10:09/13/2015 10:31am Mean Corpuscular Hemoglobin 30.1 UUG 26-34 09/13/2015 10:2015 10:31am Mean Corpuscular Hemoglobin Concent 33.8 GM/DL 31-37 09/13/2015 10:09/13/2015 10:31am RDW Standard Deviation 45.1 FL 36.9-50.2 09/13/2015 10:09/13/2015 10:31am Platelet Count 222 T/MM3 130-400 09/13/2015 10:09/13/2015 10:31am Mean Platelet Volume 10.3 UM3 9.4-12.4 09/13/2015 10:09/13/2015 10 :31am Neutrophils (%) (Auto) 69.6 % H 33-66 09/13/2015 10:09/13/2015 10: 31am Lymphocytes (%) (Auto) 22.1 % L 23-45 09/13/2015 10:09/13/2015 10: 31am Monocytes (%) (Auto) 5.7 % 0-9.0 09/13/2015 10:09/13/2015 10:31am Eosinophils (%) (Auto) 2.1 % 0-4 09/13/2015 10:09/13/2015 10:31am Basophils (%) (Auto) 0.3 % 0-2 09/13/2015 10:09/13/2015 10:31am Immature Granulocyte % (Auto) 0.2 % 0.0-0.5 09/13/2015 10:2015 10:31am Absolute Neutrophils (auto) 4.1 T/MM3 1.8-7.7 09/13/2015 10:25am 2015 10:31am Absolute Lymphocytes (auto) 1.3 T/MM3 1-4.8 09/13/2015 10:25am 2015 10:31am Absolute Monocytes (auto) 0.3 T/MM3 0-0.8 09/13/2015 10:25am 2015 10:31am Absolute Eosinophils (auto) 0.1 T/MM3 0-0.5 09/13/2015 10:25am 2015 10:31am Absolute Basophils (auto) 0.0 T/MM3 0-0.2 09/13/2015 10:25am 2015 10:31am Absolute Immature Granulocyte (auto 0.01 T/MM3 0.00-0.03 09/13/2015 10: 25am 09/13/2015 10:31am C-Reactive Protein < 5.0 MG/L 0-9 09/13/2015 10:25am 09/13/2015 10: 42am Erythrocyte Sedimentation Rate 7 mm/h 0-15 09/13/2015 10:25am 2015 4:07pm Sedimentation Rate performed at [facility] Reference Lab, [address] [place] [address] Automatic Die Cutting Machine Operator Roberto Carlos Littlejohn DO Procedures Procedure Status Date Provider(s) ROUTINE VENIPUNCTURE Completed 09/13/15 COMPLETE CBC W/AUTO DIFF WBC Completed 09/13/15 RBC SED RATE AUTOMATED Completed 09/13/15 C-REACTIVE PROTEIN Completed 09/13/15 Encounters Encounter Location Arrival/Admit Date Discharge/Depart Date Attending Provider Registered Clinic [facility] 09/13/15 10:15am MIKE BERNAL Discharged Recurring [facility] 08/07/15 10:00am 09/24/15 11: 59pm ESTEFANIA OSW MD
--- OUTSIDE RECORDS SUMMARY | 2016-06-23 06:53 | XMS REPORT | Referral Summary ---
Author Organization Unknown Address Unknown Phone Unavailable Care Team Providers Care Stem Cleaning Machine Feeder Name Role Phone Josemanuel Liriano Primary Care Physician [phone] Encounter VC Date(s): 05/09/14 - 05/09/14 [facility] [address] [place] [address] JONAS Mercedes [id number] Discharge Diagnosis: Cancer of skin of face Discharge Disposition: Home or Self Care Attending Physician: Pete Liriano MD Admitting Physician: Pete Liriano MD Vital Signs Most recent to 1 oldest [Reference Range]: Temperature Tympanic 36.5 degC [36.6-38.1 degC] *LOW* (05/09/14 12:58 PM) Peripheral Pulse 60 bpm Rate [60-100 bpm] (05/09/14 12:58 PM) Blood Pressure 132/72 mmHg [90-140/60-90 mmHg] (05/09/14 12:58 PM) Problem List Condition Effective Dates Status [...] DAY, # 90 tabs, 1 Refill(s), eRx: [facility] #[id number], TAKE ONE TABLET BY MOUTH EVERY DAY Special Instructions: TAKE ONE TABLET BY MOUTH EVERY DAY Start Date: 01/22/14 Status: Ordered Crestor 20 mg oral tablet 0.25 tabs, Oral, 3x/Wk, # 30 tabs, 0 Refill(s), Pharmacy: [facility] # [id number], 0.25 tabs Oral 3x/Wk Start Date: 05/03/14 Status: Ordered famotidine 20 mg oral tablet 1 tabs, Oral, BID, as needed for indigestion, 0 Refill(s) Start Date: 10/02/13 Status: Ordered finasteride 5 mg oral tablet 1 tabs, Oral, Bedtime (once a day), # 90 tabs, 1 Refill(s), Pharmacy: [facility] #[id number], 1 tabs Oral Bedtime (once a day),x90 days Start Date: 05/03/14 Stop Date: 10/30/14 Status: Ordered Levemir FlexTouch 100 units/mL subcutaneous solution See Instructions, Inject 40 units subcutaneously every day. Increase by 1 unit daily if FBS > 140., # 15 mL, 0 Refill(s), Pharmacy: [facility] #[id number], Inject 30 units subcutaneously every day. Increase [...] TIDAC, # 15 mL, 11 Refill(s), Pharmacy: [facility] #[id number], 10 units SubCutaneous TIDAC Start Date: 01/31/14 [...] Procedures Procedure Date Related Diagnosis Body Site Excision, malignant lesion including margins, 05/09/14 face, ears, eyelids, nose, lips; excised diameter 3.1 to 4.0 cm Cystoscopy 02/06/11 Transrectal needle biopsy of prostate 02/06/11 Urethral dilatation 02/06/11 Colonoscopy1 2006 Colonoscopy 2004 Inguinal herniorrhaphy - unilateral2 1996 Vasectomy 1980 Manipulation and casting of knees 1961 Surgery3 1949 1and 2003 2left 3left hand laceration repair Social History Social History Type Response Smoking Status Former smoker; Type: Cigarettes; Tobacco use per day: Smoked 2 packs a day; Number of years: 301 1Quit in 1998 Assessment and Plan Extracted from: Title: Ambulatory Patient Education Author: Pete Liriano MD Date: 05/09 Family Medicine Basal Cell Carcinoma Basal cell carcinoma is the most common form of skin cancer. It begins in the basal cells, which are at the bottom of the outer skin layer (epidermis ). CAUSES Sun exposure is the most common cause of basal cell carcinoma. Basal cell carcinoma occurs most often on parts of the body that are frequently exposed to the sun, including the: Scalp. Ears. Neck. Face. Arms. Backs of the hands. Legs. However, basal cell carcinoma can occur anywhere on the body. Rarely, tumors develop on areas not exposed to the sun. Other causes of basal cell carcinoma can include: Exposure to arsenic. Exposure to radiation. Certain genetic syndromes, such as xeroderma pigmentosum. RISK FACTORS People at highest risk for basal cell carcinoma include those with: Fair skin. Blonde or red hair. Blue, green, or berry eyes. Childhood freckling. Factors that increase your risk for basal cell carcinoma include: Sun exposure over long periods of time. Childhood sun exposure appears to be a more significant factor than sun exposure as an adult. Repeated sunburns. Use of tanning beds. Having a weakened immune system. SYMPTOMS Five signs of basal cell carcinoma are: An open sore that bleeds, oozes, or crusts. The sore may remain open for 3 or more weeks. This can be an early sign of basal cell carcinoma. Basal cell carcinoma can mimic a pimple that will not heal. A reddish or irritated area which may crust, itch, or cause discomfort. This may occur on areas expose d to the sun. These patches might be easier felt than seen. A shiny, pearly, or translucent bump that is pink, red, or white. The bump may also be mares, black, or brown, especially in dark haired people. These bumps can be confused with moles. A pink growth with a slightly elevated, rolled border, and a crusted indentation in the center. As the growth slowly enlarges, tiny blood vessels may develop on the surface. A scar-like white, yellow, or waxy area that looks like shiny, stretched skin. It often has irregular borders. This may be a sign of more aggressive basal cell carcinoma. DIAGNOSIS Your caregiver may be able to tell what is wrong by doing a physical exam. Often , a tissue sample (biopsy ) is also taken. The tissue is examined under a microscope. TREATMENT The treatment for basal cell carcinoma depends on the type, size, location, and number of tumors. Possible treatments include: Mohs surgery. This is a procedure done by a skin doctor (behavioral intervention specialist or Mohs surgeon ) in his or her office. The cancerous cells are removed layer by layer. This treatment has a high cure rate. Surgical removal of the tumor. Freezing the tumor with liquid nitrogen (cryosurgery ). Plastic surgery to remove the tumor, in the case of large tumors. Radiation. This may be used for tumors on the face. Photodynamic therapy. A chemical cream is applied to the skin and light exposure is used to activate the chemical. Chemical treatments, such as imiquimod cream and interferon injections. This may be used to remove superficial tumors with minimal scarring. Electrodesiccation and curettage. This involves alternately scraping and burning the tumor, using an electric current to control bleeding. Basal cell carcinoma can almost always be cured. It rarely spreads to other areas of the body (metastasizes ). Basal cell carcinoma may come back at the same location (recur ), but it can be treated again if this occurs. PREVENTION Avoid the sun between 10:00 a.m. and 4:00 pm when it is the strongest. Use a sunscreen or sunblock with a sun protection factor of 30 or greater. Apply sunscreen at least 30 minutes before exposure to the sun. Reapply sunscreen every 2 to 4 hours while you are outside, after swimming , and after excessive sweating. Always wear protective hats, clothing, and sunglasses with ultraviolet protection. Avoid tanning beds. HOME CARE INSTRUCTIONS Avoid unprotected sun exposure. Follow your caregiver's instructions for self-exams. Look for new spots or changes in your skin. Keep all follow-up appointments as directed by your caregiver. SEEK MEDICAL CARE IF: You notice any new spots or changes in your skin. You have had a basal cell carcinoma tumor removed and you notice a new growth in the same location. Document Released: 10/03/2003 Document Revised: 09/27/2012 Document Reviewed: [facility] Patient Information 2014 [employer]. No follow up information was provided. Extracted from: Title: skin cancer excision Author: Pete Liriano MD Date: 05/09/14 Impression and Plan Diagnosis Cancer of skin of face (ICD9 173.30, Discharge, Medical). Orders (Selected) Outpatient Orders Ordered Exc Mal Les Face Ears Nose Lips 3.1-4.0cm [id number]: Future (On Hold) Glucose Lvl: . Counseled: Patient advised to keep the incision clean and dry for 3 days, apply an ice bag off and on for a couple of hours today, apply MORGAN daily, and to return for suture removal in 2 weeks, and as needed. OTC meds as needed for pain..
--- OUTSIDE RECORDS SUMMARY | 2016-06-23 06:53 | XMS REPORT | Referral Summary ---
Author Author [facility] Organization [facility] Address Unknown Phone Unavailable Care Team Providers Care Stonework Supervisor Name Role Phone Josemanuel Liriano Primary Care Physician [phone] Encounter VC Date(s): 11/06/14 - 11/06/14 [facility] [address] [place] [address]- Discharge Disposition: 01-Home or Self Care Attending Physician: Pete Liriano MD Admitting Physician: Pete Liriano MD Vital Signs Most recent to 1 oldest [Reference Range]: Temperature Tympanic 36.5 degC [36.6-38.1 degC] *LOW* (11/06/14 11:02 AM) Peripheral Pulse 95 bpm Rate [60-100 bpm] (11/06/14 11:02 AM) Respiratory Rate 16 br/min [14-20 br/min] (11/06/14 11:02 AM) Blood Pressure 121/60 mmHg [90-140/60-90 mmHg] (11/06/14 11:02 AM) SpO2 98 % (11/06/14 11:02 AM) Problem List Condition Effective Dates Status [...] 8 Refill(s), eRx: [facility] #[id number], TAKE ONE TABLET BY MOUTH DAILY Start Date: 03/25/15 Status: Ordered Crestor 20 mg oral tablet 0.25 tabs, Oral, 3x/Wk, # 30 tabs, 0 Refill(s), Pharmacy: [facility] # [id number], 0.25 tabs Oral 3x/Wk Start Date: 05/03/14 Status: Ordered finasteride 5 mg oral tablet See Instructions, TAKE ONE TABLET BY MOUTH EVERY NIGHT AT BEDTIME, # 90 tabs, eRx: [facility] #[id number], TAKE ONE TABLET BY MOUTH EVERY NIGHT AT BEDTIME Start Date: 05/15/15 Status: Ordered Jardiance 10 mg oral tablet 10 mg 1 tabs, Oral, qAM, # 90 tabs, 3 Refill(s), Pharmacy: [facility] # [id number], 1 tabs Oral qAM Start Date: 05/10/15 Status: Ordered Levemir FlexTouch 100 units/mL subcutaneous solution See Instructions, INJECT 30 UNITS SUB-Q. INCREASE BY ONE UNIT PER DAY IF FASTING BLOOD SUGAR IS GREATER THAN 120., # 9 unknown unit, 5 Refill(s), eRx: [facility] #[id number], INJECT 30 UNITS SUB-Q. INCREASE BY ONE [...] 2 Refill(s), eRx: [facility] #[id number], INJECT 10 UNITS THREE TIMES A DAY BEFORE MEALS Start Date: 03/25/15 Status: Ordered Xalatan 0.005% ophthalmic solution 1 drops, Eye-Both, Bedtime (once a day), # 2 mL, 5 Refill(s), Pharmacy: [facility] #[id number] Start Date: 11/21/14 Status: Ordered Results Hematology Most recent to 1 oldest [Reference Range]: WBC [4.8-10.8 6.2 10*3/uL 10*3/uL] (11/06/14 11:58 AM) RBC [4.60-6.20 5.12 10*6/uL 10*6/uL] (11/06/14 11:58 AM) Hgb [14.0-18.0 15.9 gm/dL gm/dL] (11/06/14 11:58 AM) Hct [42.0-52.0 %] 44.6 % (11/06/14 11:58 AM) MCV [82.0-99.0 fL] 87.1 fL (11/06/14 11:58 AM) MCH [27.0-32.0 pg] 31.1 pg (11/06/14 11:58 AM) MCHC [32.0-36.0 35.7 gm/dL gm/dL] (11/06/14 11:58 AM) RDW [11.5-14.5 %] 13.2 % (11/06/14 11:58 AM) Platelet [150-400 220 10*3/uL 10*3/uL] (11/06/14 11:58 AM) MPV [8.8-14.8 fL] 10.6 fL (11/06/14 11:58 AM) Immature 0.2 % Granulocytes (11/06/14 11:58 AM) [0.0-1.0 %] Neutrophils [51-75 67 % %] (11/06/14 11:58 AM) Lymphocytes [20-46 21 % %] (11/06/14:58 AM) Monocytes [4-11 %] 7 % (11/06/1458 AM) Eosinophils [0-4 %] 4 % (11/06/1458 AM) Basophils [0-2 %] 1 % (11/06/1458 AM) Neutro Absolute 4.15 10*3 [1.90-7.00 10*3] (11/06/1458 AM) Lymph Absolute 1.31 10*3 [0.80-3.30 10*3] (11/06/14:58 AM) Hemphill Absolute 0.45 10*3 [0.30-1.00 10*3] (11/06/14 AM) Eos Absolute 0.24 10*3 [0.00-0.50 10*3] (11/06/14:58 AM) Baso Absolute 0.03 10*3 [0.00-0.20 10*3] (11/06/1458 AM) Chemistry Most recent to 1 oldest [Reference Range]: Sodium Lvl [135-144 138 mEq/L mEq/L] (11/06/1458 AM) Potassium Lvl 4.4 mEq/L [3.5-5.2 mEq/L] (11/06/1458 AM) Chloride [99-111 105 mEq/L mEq/L] (11/06/1458 AM) CO2 [23-31 mEq/L] 25 mEq/L (11/06/14 AM) AGAP [3-20] 8 (11/06/14 AM) BUN [8-26 mg/dL] 16 mg/dL (11/06/1458 AM) Glucose Lvl [70-99 148 mg/dL mg/dL] *HI* (11/06/14 AM) Creatinine Lvl 0.84 mg/dL [0.72-1.25 mg/dL] (11/06/1458 AM) eGFR [>60 mL/min] >60 mL/min 1 (11/06/1458 AM) Calcium Lvl 9.6 mg/dL [8.9-10.5 mg/dL] (11/06/14 11:58 AM) Albumin Lvl [3.4-4.8 4.0 gm/dL gm/dL] (11/06/14 11:58 AM) Total Protein 6.4 gm/dL [6.2-8.1 gm/dL] (11/06/14 11:58 AM) Globulin [1.8-4.0 2.4 gm/dL gm/dL] (11/06/14 11:58 AM) ALT [0-55 U/L] 31 U/L (11/06/14 11:58 AM) AST [5-34 U/L] 22 U/L (11/06/14 11:58 AM) Alk Phos [40-150 98 U/L U/L] (11/06/14 11:58 AM) Bili Total [0.2-1.2 0.6 mg/dL mg/dL] (11/06/14 11:58 AM) LDL Direct [0-129 96 mg/dL mg/dL] (11/06/14 11:58 AM) Hgb A1c [4.1-5.6 %] 8.8 % *HI* (11/06/14 11:58 AM) eAvg Glucose 205.9 mg/dL (11/06/14 11:58 AM) 1Result Comment: Multiply eGFR results by [...] 2004 Inguinal herniorrhaphy - unilateral3 1995 Vasectomy 1980 Manipulation and casting of knees 1960 Surgery4 [...] Education Author: Pete Liriano MD Date: 11/06 Ophthalmology Diabetes and Small Vessel Disease Small vessel disease (microvascular disease) includes nephropathy, retinopathy, and neuropathy. People with diabetes are at risk for these problems, but keeping blood glucose (sugar) controlled is helpful in preventing problems. DIABETIC KIDNEY PROBLEMS (DIABETIC NEPHROPATHY) Diabetic nephropathy occurs in many patients with diabetes. Damage to the small vessels in the kidneys is the leading cause of end- stage renal disease (ESRD). Protein in the urine (albuminuria) in the range of 30 to 300 mg/24 h ( microalbuminuria) is a sign of the earliest stage of diabetic nephropathy. Good blood glucose (sugar) and blood pressure control significantly reduce the progression of nephropathy. DIABETIC EYE PROBLEMS (DIABETIC RETINOPATHY) Diabetic retinopathy is the most common cause of new cases of blindness in adults. It is related to the number of years you have had diabetes. Common risk factors include high blood sugar (hyperglycemia), high blood pressure (hypertension), and poorly controlled blood lipids such as high blood cholesterol (hypercholesterolemia). DIABETIC NERVE PROBLEMS (DIABETIC NEUROPATHY) Diabetic neuropathy is the most common, long-term complication of diabetes. It is responsible for more than half of leg amputations not due to accidents. The main risk for developing diabetic neuropathy seems to be uncontrolled blood sugars. Hyperglycemia damages the nerve fibers causing sensation (feeling) problems. The closer you can keep the following guidelines, the better chance you will have avoiding problems from small vessel disease. Working toward near normal blood glucose or as normal as possible. You will need to keep your blood glucose and A1c at the target range prescribed by your caregiver. Keep your blood pressure less than 120/80. Keep your low-density lipoprotein (LDL) cholesterol (one of the fats in your blood) at less than 100 mg/dL. An LDL less than 70 mg/dL may be recommended for high risk patients. You cannot change your family history, but it is important to change the risk factors that you can. Risk factors you can control include: Controlling high blood pressure. Stopping smoking. Using alcohol only in moderation. Generally, this means about one drink per day for women and two drinks per day for men. Controlling your blood lipids (cholesterol and triglycerides). Treating heart problems, if these are contributing to risk. SEEK MEDICAL CARE IF: You are having problems keeping your blood glucose in goal range. You notice a change in your vision or new problems with your vision. You have wound or sore that does not heal. Your blood pressure is above the target range. Document Released: 03/31/2004 Document Revised: 03/15/2013 Document Reviewed: [facility] Patient Information 2015 [employer] [place]. This information is not intended to replace advice given to you by your health care provider. Make sure you discuss any questions you have with your health care provider. No follow up information was provided. Extracted from: Title: DM, HTN Author: Pete Liriano MD Date: 11/06/14 Impression and Plan Diagnosis Benign essential hypertension (ICD9 401.1, Working, Medical). BPH (benign prostatic hypertrophy) with urinary obstruction (ICD9 600.01, Working, Medical). Combined hyperlipidemia (ICD9 272.2, Working, Medical). Diabetes mellitus type 2, uncontrolled (ICD9 250.02, Working, Medical). 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 Nephropathy, diabetic (ICD9 250.40, Working, Medical). Plan: Terbinafine 250 mg daily for 7 days out of every 28 days. Continue your current meds. Lab today. See me for a physical in 3 months and as needed. Consider getting a new BS monitor. . Orders Orders (Selected) Outpatient Orders Ordered CBC w/ Differential: CMP: Hgb A1c: LDL Direct: Office Visit Level 4 Est 71130: Ordered (Pending Collection) Albumin/Creatinine Ratio, Urine: . Dx/Order Association Plan: Diagnosis: BPH (benign prostatic hypertrophy) with urinary obstruction Comment: Ordered: Office Visit Level 4 Est 68992; 11/06/14 11:40:00 CDT, Diabetes mellitus type 2, uncontrolled | Nephropathy, diabetic | Benign essential hypertension | BPH (benign prostatic hypertrophy) with urinary obstruction | Combined hyperlipidemia Diagnosis: Benign essential hypertension Comment: Ordered: CBC w/ Differential; Blood, Routine Collect, 11/06/14 11: 54:00 CDT, Once, Stop date 11/06/14 11:54:00 CDT, Lab Collect, Benign essential hypertension Office Visit Level 4 Est 33610; 11/06/14 11:40:00 CDT, Diabetes mellitus type 2, uncontrolled | Nephropathy, diabetic | Benign essential hypertension | BPH (benign prostatic hypertrophy) with urinary obstruction | Combined hyperlipidemia Diagnosis: Combined hyperlipidemia Comment: Ordered: LDL Direct; Blood, Routine Collect, 11/06/14 11:54:00 CDT , Once, Stop date 11/06/14 11:54:00 CDT, Lab Collect, Combined hyperlipidemia Office Visit Level 4 Est 62988; 11/06/14 11:40:00 CDT, Diabetes mellitus type 2, uncontrolled | Nephropathy, diabetic | Benign essential hypertension | BPH (benign prostatic hypertrophy) with urinary obstruction | Combined hyperlipidemia Diagnosis: Diabetes mellitus type 2, uncontrolled Comment: Ordered: CMP; Blood, Routine Collect, 11/06/14 11:54:00 CDT, Once , Stop date 11/06/14 11:54:00 CDT, Lab Collect, Diabetes mellitus type 2, uncontrolled Hgb A1c; Blood, Routine Collect, 11/06/14 11:54:00 CDT, Once, Stop date 11/06/14 11:54:00 CDT, Lab Collect, Diabetes mellitus type 2, uncontrolled Office Visit Level 4 Est 22780; 11/06/14 11:40:00 CDT, Diabetes mellitus type 2, uncontrolled | Nephropathy, diabetic | Benign essential hypertension | BPH (benign prostatic hypertrophy) with urinary obstruction | Combined hyperlipidemia Diagnosis: Impotence, organic Comment: Ordered: Office Visit Level 4 Est 05544; 11/06/14 11:40:00 CDT, Diabetes mellitus type 2, uncontrolled | Nephropathy, diabetic | Benign essential hypertension | BPH (benign prostatic hypertrophy) with urinary obstruction | Combined hyperlipidemia Diagnosis: Nephropathy, diabetic Comment: Ordered: Albumin/Creatinine Ratio, Urine; Urine, Routine collect, 11/06/14 11:54:00 CDT, Once, Stop date 11/06/14 11:54:00 CDT, Nurse Collect Non- Blood, Nephropathy, diabetic Office Visit Level 4 Est 57863; 11/06/14 11:40:00 CDT, Diabetes mellitus type 2, uncontrolled | Nephropathy, diabetic | Benign essential hypertension | BPH (benign prostatic hypertrophy) with urinary obstruction | Combined hyperlipidemia End of Orders ."
--- OUTSIDE RECORDS SUMMARY | 2016-06-23 06:53 | XMS REPORT | Referral Summary ---
Author Author [facility] Organization [facility] Address Unknown Phone Unavailable Care Team Providers Care Wash Operator Name Role Phone Josemanuel Liriano Primary Care Physician [phone] Encounter VC Date(s): 02/06/15 - 02/06/15 [facility] [address] [place] [address]- Discharge Disposition: 01-Home or Self Care Attending Physician: Pete Liriano MD Admitting Physician: Pete Liriano MD Vital Signs Most recent to 1 oldest [Reference Range]: Temperature Tympanic 35.2 degC [36.6-38.1 degC] *LOW* (02/06/15 7:33 AM) Peripheral Pulse 100 bpm Rate [60-100 bpm] (02/06/15 7:33 AM) Blood Pressure 136/72 mmHg [90-140/60-90 mmHg] (02/06/15 7:33 AM) SpO2 98 % (02/06/15 7:33 AM) Problem List Condition Effective Dates Status [...] DAILY, # 30 tabs, 8 Refill(s), eRx: [facility] #[id number], TAKE ONE TABLET BY MOUTH DAILY Start Date: 03/25/15 Status: Ordered Crestor 10 mg oral tablet 5 mg 0.5 tabs, Oral, Daily, takes it 5 days/week, # 45 tabs, 3 Refill(s) Start Date: 07/19/15 Stop Date: 07/13/16 Status: Ordered finasteride 5 mg oral tablet See Instructions, TAKE ONE TABLET BY MOUTH EVERY NIGHT AT BEDTIME, # 90 tabs, eRx: [facility] #[id number], TAKE ONE TABLET BY MOUTH EVERY NIGHT AT BEDTIME Start Date: 05/15/15 Status: Ordered Levemir FlexTouch 100 units/mL subcutaneous solution See Instructions, INJECT 30 UNITS SUB-Q. INCREASE BY ONE UNIT PER DAY IF FASTING BLOOD SUGAR IS GREATER THAN 120., # 15 mL, 1 Refill(s), Pharmacy: [facility] [id number], INJECT 30 UNITS SUB-Q. INCREASE BY ONE UNIT PER DAY IF FASTING BLOOD SUGAR I... Start Date: 08/02/15 Status: Ordered metFORMIN 500 mg oral tablet, extended release 500 mg 1 tabs, Oral, Daily, # 30 tabs, 11 Refill(s) Start Date: 07/19/15 Status: Ordered NovoLOG FlexPen 100 units/mL subcutaneous solution See Instructions, INJECT 8 UNITS THREE TIMES A DAY BEFORE MEALS/PLEASE DISPENSE A 90 DAY SUPPLY., # 30 mL, 1 Refill(s), [facility] [id number], INJECT 8 UNITS THREE TIMES A DAY BEFORE MEALS/PLEASE DISPENSE A 90 DAY SUPPLY. Start Date: 08/02/15 Status: Ordered Xalatan 0.005% ophthalmic solution 1 drops, Eye-Both, Bedtime (once a day), # 2 mL, 5 Refill(s), Pharmacy: [facility] #[id number] Start Date: 11/21/14 Status: Ordered Results Chemistry Most recent to 1 oldest [Reference Range]: Chol [0-199 mg/dL] 219 mg/dL *HI* (02/06/15 8:40 AM) Trig [0-149 mg/dL] 452 mg/dL 1 *HI* (02/06/15 8:40 AM) HDL [40-84 mg/dL] 36 mg/dL *LOW* (02/06/15 8:40 AM) LDL [0-130] INVALID (02/06/15 8:40 AM) VLDL Cholesterol INVALID [0-28] (02/06/15 8:40 AM) Cardiac Risk 6.1 [0.0-5.7] *HI* (02/06/15 8:40 AM) TSH [0.35-4.94] 1.52 (02/06/15 8:40 AM) Hgb A1c [4.1-5.6 %] 7.4 % *HI* (02/06/15 8:40 AM) eAvg Glucose 165.7 mg/dL (02/06/15 8:40 AM) 1Result Comment: LDL and VLDL are invalid with Triglyceride greater than 400. Urinalysis Most recent to 1 oldest [Reference Range]: UA Color Yellow (02/06/15 8:50 AM) UA Appear Turbid *ABN* (02/06/15 8:50 AM) UA pH [5.0-8.0] 5.5 (02/06/15 8:50 AM) UA Leuk Est Negative [Negative] (02/06/15 8:50 AM) UA Nitrite Negative [Negative] (02/06/15 8:50 AM) UA Protein Trace [Negative] *ABN* (02/06/15 8:50 AM) UA Glucose Pos 2+ [Negative] *ABN* (02/06/15 8:50 AM) UA Ketones Negative [Negative] (02/06/15 8:50 AM) UA Urobilinogen 0.2 mg/dL [<1.0 mg/dL] (02/06/15 8:50 AM) UA Bili [Negative] Negative (02/06/15 8:50 AM) UA Blood [Negative] Negative (02/06/15 8:50 AM) UA Spec Grav 1.028 [1.003-1.030] (02/06/15 8:50 AM) Type Clean Catch (02/06/15 8:50 AM) Immunizations Vaccine Date Refusal Reason tetanus/diphth/pertuss (Tdap) [...] 2003 Inguinal herniorrhaphy - unilateral3 1995 Vasectomy 1980 Manipulation and casting of knees 1960 Surgery4 194 1tubular adenoma 1, diverticulosis, history of prior adenomatous polyps, repeat in 5 years 2a2003 3left 4left hand laceration repair Social History Social History Type Response Smoking Status Former smoker; Type: Cigarettes; Tobacco use per day: Smoked 2 packs a day; Number of years: 301 1Quit in 1998 Assessment and Plan Extracted from: Title: Ambulatory Patient Education Author: Pete Liriano MD Date: Family Medicine Diabetes and Standards of Medical Care Diabetes is complicated. You may find that your diabetes team includes a dietitian, nurse, nursing educator, eye doctor, and more. To help everyone [...] age of 10 years or older and have had diabetes for 35 years. Yearly eye [...] injuries, or other problems with the feet. A comprehensive foot exam should be done yearly. This includes visual inspection as well as assessing foot pulses and testing for loss of sensation. Check your feet nightly for cuts, injuries, [...] for triglycerides is less than 150 mg/dL. Influenza vaccine, pneumococcal vaccine, and hepatitis B vaccine The influenza vaccine is recommended yearly. It is recommended that people with diabetes who are over 65 years old get the pneumonia vaccine. In some cases, two separate shots may be given. Ask your health care provider if your pneumonia vaccination is up to date. The hepatitis B vaccine is also recommended for adults with diabetes. Diabetes self-management education Education is recommended at diagnosis and ongoing as needed. Treatment plan Your treatment plan is reviewed at every medical visit. Document Released: 01/24/2010 Document Revised: 08/13/2014 Document Reviewed: [employer] Patient Information 2015 [employer]. This information is not intended to replace advice given to you by your health care provider. Make sure you discuss any questions you have with your health care provider. No follow up information was provided. Extracted from: Title: Male physical Author: Pete Liriano MD Date: 02/06/15 Impression and Plan Diagnosis BPH (benign prostatic hypertrophy) with urinary obstruction (SNK81-ZW N40.1, Working, Medical). Combined hyperlipidemia (RLS55-DY E78.2, Working, Medical). Diabetes mellitus type 2, uncontrolled (QVN80-NL E11.65, Working, Medical). Impotence, organic (YHA48-XA N52.8, Working, Medical). Nephropathy, diabetic (CMK18-DF E11.21, Working, Medical). Benign essential hypertension (AGI44-YR I10, Working, Medical). Need for influenza vaccination (SVN32-RY Z23, Working, Medical). At high risk for pneumonia (TQP45-WV Z91.89, Working, Medical). Osteoarthritis of right knee (RFZ47-CY M17.9, Working, Medical). Plan: 1) Pneumovax and flu shots were given today. 2) Stop the Motrin PM. 3) Continue your other meds: but try to take the Crestor 5 days/week. 4) Try to take your Joan log with each meal. 5) Fasting lab today. 6) See me in 2-3 months for a recheck. 7) Get a colonoscopy scheduled. 8) May see an orthopedist for your right knee arthritis. 9) See the dentist regularly for your gum disease. 10) Get the Twinrix (hepatitis A and B) vaccine series recommended.. Orders Orders (Selected) Outpatient Orders Ordered Office Visit Level 5 Est 57578: influenza virus vaccine, inactivated: 0.5 mL, IntraMuscular, Once pneumococcal 23-polyvalent vaccine: 0.5 mL, IntraMuscular, Once Future (On Hold) Albumin/Creatinine Ratio, Urine: Fasting Lipid Profile: Hgb A1c: Routine Urinalysis: TSH 3rd Generation: Prescriptions Prescribed metFORMIN 1000 mg oral tablet: 1,000 mg=1 tabs, Oral, BID, for 90 days, with meals, 180 tabs, 3 Refill(s). Dx/Order Association Plan: Diagnosis: At high risk for pneumonia Comment: Ordered: pneumococcal 23-polyvalent vaccine; 0.5 mL, IntraMuscular , Once, First Dose: 02/06/15 8:00:00 CDT, Stop Date: 02/06/15 8:00:00 CDT Diagnosis: BPH (benign prostatic hypertrophy) with urinary obstruction Comment: Diagnosis: Benign essential hypertension Comment: Ordered: Office Visit Level 5 Est 58601; 02/06/15 8:01:00 CDT, Diabetes mellitus type 2, uncontrolled | Combined hyperlipidemia | Benign essential hypertension | Nephropathy, diabetic Diagnosis: Combined hyperlipidemia Comment: Ordered: Office Visit Level 5 Est 50903; 02/06/15 8:01:00 CDT, Diabetes mellitus type 2, uncontrolled | Combined hyperlipidemia | Benign essential hypertension | Nephropathy, diabetic Diagnosis: Diabetes mellitus type 2, uncontrolled Comment: Ordered: Office Visit Level 5 Est [id number]; 02/06/15 8:01:00 CDT, Diabetes mellitus type 2, uncontrolled | Combined hyperlipidemia | Benign essential hypertension | Nephropathy, diabetic Diagnosis: Impotence, organic Comment: Diagnosis: Need for influenza vaccination Comment: Ordered: influenza virus vaccine, inactivated; 0.5 mL, IntraMuscular, Once, First Dose: 02/06/15 7:59:00 CDT, Stop Date: 02/06/15 7:59: 00 CDT Diagnosis: Nephropathy, diabetic Comment: Ordered: Office Visit Level 5 Est 86342; 02/06/15 8:01:00 CDT, Diabetes mellitus type 2, uncontrolled | Combined hyperlipidemia | Benign essential hypertension | Nephropathy, diabetic Diagnosis: Osteoarthritis of right knee Comment: Diagnosis: Nephropathy, diabetic Comment: Diagnosis: Diabetes mellitus type 2, uncontrolled Comment: Diagnosis: Combined hyperlipidemia Comment: Diagnosis: BPH (benign prostatic hypertrophy) with urinary obstruction Comment: Diagnosis: Combined hyperlipidemia Comment: Additional Orders: Comment: Ordered: Motrin PM,2 tabs, Oral, Bedtime (once a day), 0 Refill(s) Ordered: metFORMIN 1000 mg oral tablet,1,000 mg 1 tabs, Oral, BID, with meals, X 90 days, # 180 tabs, 3 Refill(s), Instruct patient to schedule an appt. with Dr. Liriano, 1 tabs Oral BID,Instr:with meals End of Orders ."
--- OUTSIDE RECORDS SUMMARY | 2016-06-23 06:53 | XMS REPORT | Referral Summary ---
Author Author [facility] Organization [facility] Address Unknown Phone Unavailable Care Team Providers Care Physicist Nuclear Name Role Phone Josemanuel Liriano Primary Care Physician [phone] Encounter VC Date(s): 02/06/15 - 02/06/15 [facility] [address] [place] [id number]- Discharge Disposition: 01-Home or Self Care Attending [...] Daily, # 30 tabs, 1 Refill(s), Pharmacy: [facility] # [id number], 1 tabs Oral Daily Start Date: 12/28/14 Status: Ordered Crestor 20 mg oral tablet 0.25 tabs, Oral, 3x/Wk, # 30 tabs, 0 Refill(s), Pharmacy: [facility] # [id number], 0.25 tabs Oral 3x/Wk Start Date: 05/03/14 Status: Ordered finasteride 5 mg oral tablet 5 mg 1 tabs, Oral, Bedtime (once a day), # 90 tabs, 0 Refill(s), Pharmacy: [facility] #[id number], 1 tabs Oral Bedtime (once a day),x90 days Start Date: 02/01/15 Stop Date: 05/02/15 Status: Ordered Levemir FlexTouch 100 units/mL subcutaneous solution See Instructions, INJECT 30 UNITS UNDER THE SKIN DAILY - INCREASE BY 1 UNIT DAILY IF FASTING BLOOD SUGAR IS GREATER THAN 120., # 15 unknown unit, eRx: [facility] #[id number], INJECT 30 UNITS UNDER THE SKIN DAILY [...] TIDAC, # 15 mL, 11 Refill(s), Pharmacy: [facility] #[id number], 10 units SubCutaneous TIDAC Start Date: 01/31/14 Status: Ordered Xalatan 0.005% ophthalmic solution 1 drops, Eye-Both, Bedtime (once a day), # 2 mL, 5 Refill(s), Pharmacy: [facility] #[id number] Start Date: 11/21/14 Status: Ordered Results Chemistry [...] 2003 Inguinal herniorrhaphy - unilateral2 1995 Vasectomy 1980 Manipulation and casting of knees 1960 Surgery3 1948 1and 2003 2left 3left hand laceration repair [...] your diabetes team includes a dietitian, nurse, prosthodontist/educator, eye doctor, and more. To help everyone [...] Released: 01/24/2010 Document Revised: 08/13/2014 Document Reviewed: [facility] [place] Patient Information 2015 [facility]. This information is not intended to replace advice given to you by your health care provider. Make sure you discuss any questions you have with your health care provider. No follow up information was provided. Extracted from: Title: Male physical Author: Pete Liriano MD Date: 02/06/15 Impression and Plan Diagnosis BPH (benign prostatic hypertrophy) with urinary obstruction (AJW69-YT N40.1, Working, Medical). Combined hyperlipidemia (XYX06-ND E78.2, Working, Medical). Diabetes mellitus type 2, uncontrolled (YQW88-OY E11.65, Working, Medical). Impotence, organic (VSZ56-FI N52.8, Working, Medical). Nephropathy, diabetic (ZKR83-YR E11.21, Working, Medical). Benign essential hypertension (RRO18-PM I10, Working, Medical). Need for influenza vaccination (IEQ71-SJ Z23, Working, Medical). At high risk for pneumonia (BXU91-CV Z91.89, Working, Medical). Osteoarthritis of right knee (WWV10-WM M17.9, Working, Medical). Plan: 1) Pneumovax and [...] Orders Ordered Office Visit Level 5 Est 65629: influenza virus vaccine, inactivated: 0.5 mL, IntraMuscular, [...] Comment: Ordered: Office Visit Level 5 Est 26450; 02/06/15 8:01:00 CDT, Diabetes mellitus type 2, uncontrolled | Combined hyperlipidemia | Benign essential hypertension | Nephropathy, diabetic Diagnosis: Combined hyperlipidemia Comment: Ordered: Office Visit Level 5 Est 83512; 02/06/15 8:01:00 CDT, Diabetes mellitus type 2, uncontrolled | Combined hyperlipidemia | Benign essential hypertension | Nephropathy, diabetic Diagnosis: Diabetes mellitus type 2, uncontrolled Comment: Ordered: Office Visit Level 5 Est 54725; 02/06/15 8:01:00 CDT, Diabetes mellitus type 2, uncontrolled | Combined hyperlipidemia | Benign essential hypertension | Nephropathy, diabetic Diagnosis: Impotence, organic Comment: Diagnosis: Need for influenza vaccination Comment: Ordered: influenza virus vaccine, inactivated; 0.5 mL, IntraMuscular, Once, First Dose: 02/06/15 7:59:00 CDT, Stop Date: 02/06/15 7:59: 00 CDT Diagnosis: Nephropathy, diabetic Comment: Ordered: Office Visit Level 5 Est 51111; 02/06/15 8:01:00 CDT, Diabetes mellitus type 2, [...]
--- OUTSIDE RECORDS SUMMARY | 2016-06-23 06:53 | XMS REPORT | Referral Summary ---
Author Author [facility] Organization [facility] Address Unknown Phone Unavailable Care Team Providers Care [employer] Supervisor Name Role Phone Josemanuel Liriano Primary Care Physician [phone] Encounter Date(s): 10/04/14 - 10/04/14 [facility] [address] [place] [address] [place] [id number] [place] Discharge Diagnosis: BPH [...] Daily, # 30 tabs, 1 Refill(s), Pharmacy: [facility] # [id number], 1 tabs Oral Daily Start Date: 12/28/14 Status: Ordered Crestor 20 mg oral tablet 0.25 tabs, Oral, 3x/Wk, # 30 tabs, 0 Refill(s), Pharmacy: [facility] # [id number], 0.25 tabs Oral 3x/Wk Start Date: 05/03/14 Status: Ordered finasteride 5 mg oral tablet 5 mg 1 tabs, Oral, Bedtime (once a day), # 90 tabs, 0 Refill(s), Pharmacy: [facility] #[id number], 1 tabs Oral Bedtime (once a day),x90 days Start Date: 02/01/15 Stop Date: 05/02/15 Status: Ordered Levemir FlexTouch 100 units/mL subcutaneous solution See Instructions, INJECT 30 UNITS UNDER THE SKIN DAILY - INCREASE BY 1 UNIT DAILY IF FASTING BLOOD SUGAR IS GREATER THAN 120., # 15 unknown unit, eRx: [facility] #[id number], INJECT 30 UNITS UNDER THE SKIN DAILY [...] TIDAC, # 15 mL, 11 Refill(s), Pharmacy: [facility] #[id number], 10 units SubCutaneous TIDAC Start Date: 01/31/14 Status: Ordered Xalatan 0.005% ophthalmic solution 1 drops, Eye-Both, Bedtime (once a day), # 2 mL, 5 Refill(s), Pharmacy: [facility] #[id number] Start Date: 11/21/14 Status: Ordered Results No [...] s Ordered: Office Visit Level 3 Est 97583
[2016-06-23] MEDS ORDERED: ONDANSETRON 4mg/2ml INJECTION IV ONE (07:00)
[2016-06-23] MEDS ORDERED: ACETAMINOPHEN 500 MG TABLET PO ONE (07:00)
[2016-06-23] MEDS ORDERED: NOZIN NASAL SWAB NS ONE ×2 (07:00→11:45)
[2016-06-23] MEDS ORDERED: CELECOXIB 200 MG CAPSULE PO ONE (07:00)
[2016-06-23] MEDS ORDERED: VANCOMYCIN 1 GRAM INJECTION ONE (07:10)
[2016-06-23 07:22] LABS: BASOPHILS % (AUTO) 0.4 % (0-2); EOSINOPHILS # (AUTO) 0.1 T/MM3 (0-0.5); EOSINOPHILS % (AUTO) 2.8 % (0-4); HCT - HEMATOCRIT 47.7 % (41-53); IMMATURE GRANULOCYTE # (AUTO) 0.01 T/MM3 (0.00-0.03); IMMATURE GRANULOCYTE % (AUTO) 0.2 % (0.0-0.5); LYMPHOCYTES # (AUTO) 1.3 T/MM3 (1-4.8); LYMPHOCYTES % (AUTO) 26.5 % (23-45); MEAN CORPUSCULAR HGB 30.7 UUG (26-34); MEAN CORPUSCULAR HGB CONC(MCHC 33.5 GM/DL (31-37); MEAN CORPUSCULAR VOLUME 91.6 UM3 (80-100); MEAN PLATELET VOLUME 10.3 UM3 (9.4-12.4); MONOCYTES # (AUTO) 0.3 T/MM3 (0-0.8); MONOCYTES % (AUTO) 5.8 % (0-9.0); NEUTROPHILS #(AUTO)-ABSOLUTE 3.2 T/MM3 (1.8-7.7); NEUTROPHILS % (AUTO) 64.3 % (33-66); RED BLOOD COUNT 5.21 M/MM3 (4.50-5.90)
[2016-06-23 07:35] LABS: ALBUMIN 4.1 G/DL (3.5-5.0); ALBUMIN/GLOBULIN RATIO 1.5 RATIO (1.1-2.2); ALKALINE PHOSPHATASE 73 U/L (38-126); ALT (SGPT) 45 U/L (21-72); ANION GAP 12 MEQ/L (5-15); AST (SGOT) 27 U/L (17-59); BUN/CREATININE RATIO 26 RATIO (6-26); CALCIUM 9.7 MG/DL (8.4-10.2); CHLORIDE 105 MEQ/L (98-107); CO2 - CARBON DIOXIDE 26 MEQ/L (22-30); CREATININE 0.8 MG/DL (0.8-1.5); GLOMERULAR FILTRATION RATE 96; GLUCOSE 142 MG/DL (75-110); POTASSIUM 4.5 MEQ/L (3.6-5); SODIUM 143 MEQ/L (134-144); TOTAL PROTEIN 6.9 G/DL (6.3-8.2)
--- NOTE | 2016-06-23 07:42 | ANESPREOP ---
Anesthesia Record Date and Time DATE: 06/23/16 TIME: 07:39 Pre-Op Diagnosis post operative pain Proposed Surgical Procedure REV RT TKA NPO since: mn Allergies: Coded Allergies: simvastatin (Verified Adverse Reaction, Unknown, SEVERE MYALGIA, 06/23/16) Ht/Wt/BMI Height: 5 ' 9.58 " Weight: 88.100 kg BMI: 28.2 kg/m2 Vital Signs Date Time Temp Pulse Resp B/P Pulse Ox O2 Delivery O2 Flow Rate FiO2 06/23/16 07:05 98.1 93 15 132/79 97 Room Air Medications Inpatient Medications Current Medications Medications (Trade) Dose Ordered Sig/Kathe Start Time Stop Time Status Last Admin Dose Admin Sodium Chloride 1,000 ml @ 50 mls/hr Q20H 06/23/16 06:00 Epinephrine HCl/ Bupivacaine HCl/ Morphine Sulfate/ Ketorolac Tromethamine/ Sodium Chloride (Adrenalin/ Marcaine 0.25%/ Morphine Sulfate/ Toradol/NS) 65.25 ml @ 0 mls/hr Q0M PRN 06/23/16 10:15 Aspirin *EC* (Low Dose Aspirin EC) 81 Mg Tablet.dr, 1 TAB PO DAILY, (Reported) Last Taken: on 06/15/16 Empagliflozin (Jardiance) 10 Mg Tablet, 1 TAB PO DAILY, (Reported) Last Taken: on 06/22/16 07 Finasteride (Finasteride) 5 Mg Tablet, 1 TAB PO HS, (Reported) Last Taken: on 06/22/16 2100 Insulin Aspart (Novolog Flexpen) 1 Unit Pen, 10 UNIT SQ AC, (Reported) Last Taken: on 06/22/16 1700 Insulin Detemir (Levemir Flextouch) 100 Unit/1 Ml Insuln.pen, 32 UNIT SQ HS, (Reported) Last Taken: on 06/22/162129 Latanoprost (Latanoprost) 2.5 Ml Drops, 1 DROP BOTH EYES HS, (Reported) Last Taken: on 06/22/162129 Lisinopril (Lisinopril) 10 Mg Tablet, 10 MG PO DAILY, (Reported) Last Taken: on 06/22/16 07 Metformin HCl (Metformin HCl) 1,000 Mg Tablet, 1 TAB PO DAILY, (Reported) Last Taken: on 06/22/16 07 Rosuvastatin Calcium (Crestor) 20 Mg Tablet, 1 TAB PO 5 days a week, (Reported) Last Taken: on 06/22/16 0700 Currently on Beta Chadd: No Medical/Surgical History Anesthesia PMH: Reports: *Diabetes (avg bs at home 130), *Hypertension, Arthritis (OA), Cancer (SKIN CA ), Glaucoma, Renal Disease (DIABETIC NEPHROPATHY PER H&P), Denies: *Angina, *MS, Anesthesia Reactions (NO AIRWAY ISSUES KNOWN), CHF, Clotting Problems, Deep Vein Thrombosis, Malignant Hyperthermia, Rheumatic Fever, Sleep Apnea, Thyroid Disease Smoking Status: Former smoker (quit in ) # of Packs per Day: 20 Use Chewing Tobacco?: No Past Surgical History Orthopedic Surgeries: Yes - L HAND LACERATION REPAIRS; RT TKA Abdominal Surgeries: Yes - LT ING HERNIA Genitourinary Surgeries: Yes - CYSTO, DIL; PROSTATE BIOPSY Cardiac Surgeries: Endocrine Surgeries: Reproductive Surgeries: Yes - VASECTOMY Neurological Surgeries: Ear Surgeries: Nose Surgeries: Throat Surgeries: Other Surgeries: Yes - COLONOSCOPY X2 Anesthesia Adverse Reactions: FOUND none Family Hx of Anesthesia Advers: none Hx of Motion Sickness: Yes Pertinent Findings Laboratory Tests 06/23/16 07:17 EKG Rhythm: Sinus Rhythm Physical Exam Respiratory: Bilat breath sounds equal, Lungs clear Cardiovascular: FOUND Regular rate, rhythm, FOUND No murmur Airway Assessment Mallampati Score: II TMD: 3 Fingerbreadths Neck Extension: Fair Overall Assessment: No Airway Concerns ASA: 2 Plan Anesthesia Plan: GETA Discussion Discussed risks/options/alternatives of anesthesia and questions answered. Patient consents. Nursing pain assessment noted. Attestation Statement Prior to the delivery of any anesthetic medication, I examined the patient, developed the plan, obtained the patient's consent and discussed the risk and benefits of the procedure with the patient/guardian. TOBI AREVALO CRNA Jun 23, 2016 07:42
[2016-06-23] MEDS ORDERED: MIDAZOLAM 2mg/2ml INJECTION IV ONE (07:45)
[2016-06-23] MEDS ORDERED: FENTANYL 250mcg/5ml INJECTION ONE (07:53)
[2016-06-23] MEDS ORDERED: ROCURONIUM 50mg/5ml INJECTION IV ONE (07:53)
[2016-06-23] MEDS ORDERED: LIDOCAINE 2% (20mg/ml) 5ml PF SDV ONE (07:53)
[2016-06-23] MEDS ORDERED: PROPOFOL 200mg 20 ML IV ONE (07:53)
[2016-06-23] MEDS ORDERED: ROPIVACAINE 0.5% (5mg/ml) 30ml INJ ONE (07:54)
--- NOTE | 2016-06-23 08:12 | ANESPD ---
Peripheral Nerve Blockade Physician: Rei Santoyo MD Date: 06/23/16 Surgical Procedure: right total knee Discussion Discussed risks/options/alternatives of anesthesia and questions answered. Patient consents. Nursing pain assessment noted. Block Start: 08:04 Block Stop: 08:09 Block Employed: [employer] Indication: post-operative pain Position: supine Patient: Consent, Informed, post block act. discussed IV Sedation: Yes Sedation: sedate w/meaningful contact Midazolam (mg): 2 Initial Vital Signs First Documented Vital Signs Date Time Temp Pulse Resp B/P Pulse Ox O2 Delivery O2 Flow Rate FiO2 06/23/16 07:05 98.1 93 15 132/79 97 Room Air Post Vital Signs Vital Signs Date Time Temp Pulse Resp B/P Pulse Ox O2 Delivery O2 Flow Rate FiO2 06/23/16 08:03 16 06/23/16 07:58 Room Air 06/23/16 07:05 98.1 93 132/79 97 Initial Pain Score: 0 Post Block Score: 0 Prep: chlorhexadine/ETOH Ultrasound Used?: Yes Injectate Ropivacaine (%): 0.5 Ropivacaine (mL): 20 Was Epi 1:200,000 Used?: No Injection Injection made incrementally with constant monitoring and aspiration every [5] ml. TOBI AREVALO CRNA Jun 23, 2016 08:12
[2016-06-23] MEDS ORDERED: PROPOFOL 200mg 200 MG, ESMOLOL 50 MG, KETAMINE 50 MG, LIDOCAINE 2% 100 MG, MAGNESIUM SU... IV ONE ×7 (09:15)
[2016-06-23] MEDS ORDERED: TRANEXAMIC ACID 1,000 MG in NORMAL SALINE 100 ML IV ONE ×2 (09:15→10:30)
[2016-06-23] MEDS ORDERED: CEFAZOLIN 2 GM VIAL IV ONE (09:15)
[2016-06-23] MEDS ORDERED: EPINEPHRINE 0.25 MG, BUPIVACAINE 0.25% 75 MG, MORPHINE SULFATE 15 MG, KETOROLAC 60 MG i... INJ PRN ×5 (10:15)
[2016-06-23] MEDS ORDERED: FENTANYL 100mcg/2ml INJECTION ONE ×2 (10:40→11:34)
--- NOTE | 2016-06-23 11:26 | PDOPERATE ---
Operative Report Date of Operation 06/23/16 Side: Right Preoperative Diagnosis: other (right total knee arthroplasty aseptic loosening) Postoperative Diagnosis Same as preoperative diagnosis. Operation/Procedure: other (revision femoral component right total knee arthroplasty) Surgeon Chitra Santoyo MD [employer] [facility] Complications None. Anesthesia Plan: GETA Estimated Blood Loss See Anesthesia Record. Fluids Please See Anesthesia Record. Description of Operation Mr. Lee and his right knee were identified and marked in the the preoperative holding area. He was then brought back to the operating suite and proper anesthesia was administered. He was then positioned supine on the operating table. The right lower extremity was then prepped and draped in my normal sterile fashion. Timeout was performed with all operating room personnel. The knee was taken through range of motion. He lacked just maybe 1 or 2 full extension and flex past 115. He was nice and stable throughout his patella tracked well. He had good end points with anterior-posterior shuck. The leg was exsanguinated and the tourniquet inflated 250 mmHg. There uses previous anterior midline incision followed by medial parapatellar arthrotomy. Exposure was obtained and the femoral component was examined. It was not obviously loose but when I started to saw beneath the component the sawblade did travel rather easily between the bone cement. The component femoral component was then removed without much difficulty. There was minimal bone loss and there is a good amount of cement still stuck onto the femoral component. I then circumferentially reamed to a 21. Distal femoral cut was made taking 5 mm off of the previous joint line. 4-in-1 cutting block was then pinned with 5 mm augments. Laboratory was used to check gaps before the component was pinned in place. Distal femoral cuts were then performed. We then trialed with a CR implants with a 13 mm spacer which was in there previously and was given excellent motion and stability and his patella tracked well. A box was then cut out and we trialed again with a TS femur with a 21 stem and again a good result. The 15 mL bone was then prepared for cementing and components were cemented into place using a size 4 TS femur with 100 mm 21 stem. This had 5 mm augments both medially and laterally. With the PS insert size 13 year full motion and good stability so after thorough irrigation a final 13 mm PS spacer was placed. The tourniquet was let down after the cement had hardened and hemostasis obtained with electrocautery. Aricept solution was used throughout the case as well as Betadine solution for 3 minutes. Joint cocktail was injected throughout the soft tissues. The capsule was repaired with #1 Vicryl. I then with my pediatric physical therapy assistant to close the subcutaneous tissue with 2-0 Vicryl followed by running 4-0 Monocryl and skin followed by's Dermabond and a sterile dressing. He tolerated procedure well and there were no complications. TAMEKA SANTOYO MD Jun 23, 2016 11:26
[2016-06-23] MEDS ORDERED: DiphenhydrAMINE 25 MG CAPSULE PO PRN (11:45)
[2016-06-23] MEDS ORDERED: LORAZEPAM 1 MG TABLET PO PRN (11:45)
[2016-06-23] MEDS ORDERED: DiphenhydrAMINE 50 MG/ML INJECTION IV PRN (11:45)
[2016-06-23] MEDS ORDERED: SENNOSIDES 8.6 MG TABLET PO PRN (11:45)
[2016-06-23] MEDS ORDERED: METOCLOPRAMIDE 10mg/2ml INJECTION IV PRN (11:45)
[2016-06-23] MEDS ORDERED: PRN ORDERS MC (11:45)
[2016-06-23] MEDS ORDERED: OXYCODONE I.R. 5 MG TABLET PO PRN (11:45)
[2016-06-23] MEDS ORDERED: ONDANSETRON 4mg/2ml INJECTION IV PRN (11:45)
[2016-06-23] MEDS ORDERED: HYDROMORPHONE 2mg/ml INJECTION IV PRN (12:15)
--- NOTE | 2016-06-23 12:26 | ANESPO ---
Post-Op Note Date 06/23/16 Time: 12:20 Status Pt Participated in Evaluation: Pt participated in person Vital Signs Date Time Temp Pulse Resp B/P Pulse Ox O2 Delivery O2 Flow Rate FiO2 06/23/16 12:20 83 16 116/62 96 Nasal Cannula 2.00 06/23/16 11:47 98.2 Respiratory Function: Airway patent Mental Status: Alert/oriented Pain Level Intensity: 2 Unable to Assess Pain Due To: pre-op order Hydration: IV infusing Complications during Recovery None apparent Follow-Up Instructions Instructions Per Surgeon TOBI AREVALO CRNA Jun 23, 2016 12:26
--- NOTE | 2016-06-23 12:52 | NUR ---
ARRIVAL TO FLOOR PT ARRIVED TO THE FLOOR AT THIS TIME, ACCOMPANIED BY SOLVENT STATION ATTENDANT. PT ALERT AND ORIENTED X3. VITAL SIGNS STABLE, ON RA.PT TRANSFERRED SELF FROM THE CART TO THE BED WITH MINIMAL ASSIST. NO CONCERNS NOTED AT THIS TIME, WILL CONTINUE TO MONITOR.
--- NOTE | 2016-06-23 12:54 | DI ---
EXAM: KNEE RIGHT 2 VIEW LOCATION OF DICTATION: [place] HISTORY: ITS.REASON: POSTOP COMPARISON: No prior studies available for comparison. FINDINGS: Total right knee replacement is demonstrated. No evidence for orthopedic hardware malfunction or loosening. There is no malalignment. There is no evidence for acute fracture. Probable suprapatellar joint effusion. IMPRESSION: 1. Total right knee replacement without orthopedic hardware malfunction or malalignment. There are no acute fractures. 2. Suprapatellar joint effusion is suggested. .
[2016-06-23] MEDS: NORMAL SALINE 1,000 ML IV SCH (13:12)
[2016-06-23] MEDS: ACETAMINOPHEN 325 MG TABLET PO SCH ×3 (13:50→21:13)
[2016-06-23] MEDS: NOZIN NASAL SWAB NS SCH ×2 (13:50→21:18)
[2016-06-23] MEDS: INSULIN LISPRO 100 UNIT/ML SQ PRN ×2 (14:31→21:18)
[2016-06-23] MEDS: CEFAZOLIN 2 G in NORMAL SALINE 100 ML IV SCH (17:08)
--- NOTE | 2016-06-23 19:35 | NUR ---
PROGRESS NOTE PT IS RESTING IN BED, HAS BEEN UP WITH PHYSICAL THERAPY AND WENT ON A WALK IN THE HALLS THIS SHIFT. PT HAS HAD GOOD APPETITE AND ADEQUATE URINE OUTPUT. PT IS A STANDBY ASSIST X1 WITH GA[employer]ELT AND WALKER. PT HAS HAD ONE DOSE OF PRN PAIN MEDICATION THIS SHIFT AND DENIES PAIN AT THIS TIME. PT HAS CALL LIGHT WITHIN REACH, SCDS AND POLAR GRAYSON IN PLACE, BED ALARM ACTIVATED. NO OTHER CONCERNS NOTED.
[2016-06-23] MEDS: ASPIRIN *EC* 325mg TABLET PO SCH (21:12)
[2016-06-23] MEDS ORDERED: LATANOPROST 0.005% EYE DROPS 2.5 ML BOTTLE BOTH EYES SCH (22:00)
[2016-06-23] MEDS ORDERED: FINASTERIDE 5 MG TABLET PO SCH (22:00)
[2016-06-23] MEDS ORDERED: INSULIN DETEMIR 100 UNIT/ML SQ SCH (22:00)
[2016-06-23] MEDS ORDERED: SENNOSIDES 8.6 MG TABLET PO SCH (22:00)
--- NOTE | 2016-06-23 23:56 | NUR ---
Chart Check 24 hour chart check completed
[2016-06-24 00:29] VITALS: O2SAT 91
[2016-06-24] MEDS: CEFAZOLIN 2 G in NORMAL SALINE 100 ML IV SCH (01:13)
[2016-06-24] MEDS: NORMAL SALINE 1,000 ML IV SCH (01:14)
[2016-06-24 04:33] VITALS: BP 118/67; PULSE 84; RESP 18; TEMP 96.7; O2SAT 92
--- NOTE | 2016-06-24 04:45 | NUR ---
STATUS PATIENT ALERT AND ORIENTEDX3. PATIENT IS RESTING IN BED QUIETLY DURING NIGHT.PATIENT STATED "I FELT TIRED NOW. I DON'T THINK I HAD BEEN SLEPT DURING NIGHT." PATIENT AMBULATED AND USED URINAL AT BATHROOM WITH WALKER BY ONE STANDBY ASSIST. DENIES CHEST PAIN,SOA,OR N/V. TYLENOL GIVEN ON ROUTINE SCHEDULE. PATIENT REFUSED PRN PAIN MED EVEN RN OFFERED . CALL LIGHT WITHIN REACH.SCDS WAS OFF AT THIS TIME PER PATIENT REQUESTED. BED IN LOW POSITION. POLAR PAD USED AT RT KNEE.CONTINUE TO MONITOR.
[2016-06-24 05:22] LABS: ANION GAP 5 MEQ/L (5-15); BUN/CREATININE RATIO 26 RATIO (6-26); CALCIUM 8.7 MG/DL (8.4-10.2); CHLORIDE 109 MEQ/L (98-107); CO2 - CARBON DIOXIDE 25 MEQ/L (22-30); CREATININE 0.9 MG/DL (0.8-1.5); GLOMERULAR FILTRATION RATE 83; GLUCOSE 106 MG/DL (75-110); POTASSIUM 5.1 MEQ/L (3.6-5); SODIUM 139 MEQ/L (134-144)
[2016-06-24] MEDS: NOZIN NASAL SWAB NS SCH (05:28)
[2016-06-24 05:32] LABS: HCT - HEMATOCRIT 40.7 % (41-53); HGB - HEMOGLOBIN 13.4 GM/DL (13.5-17.5); MEAN CORPUSCULAR HGB 30.6 UUG (26-34); MEAN CORPUSCULAR HGB CONC(MCHC 32.9 GM/DL (31-37); MEAN CORPUSCULAR VOLUME 92.9 UM3 (80-100); MEAN PLATELET VOLUME 11.5 UM3 (9.4-12.4); RED BLOOD COUNT 4.38 M/MM3 (4.50-5.90); WBC - WHITE BLOOD COUNT 6.5 T/MM3 (4.5-11.0)
[2016-06-24 07:27] VITALS: BP 139/72; PULSE 87; RESP 18; TEMP 97; O2SAT 94
--- NOTE | 2016-06-24 08:04 | PDORTHOPN ---
Subjective Date DATE: 06/24/16 TIME: 07:57 Subjective No complaints overnight except several interruptions from staff. Objective Vital Signs Vital signs Vital Signs 06/23/16 06/23/16 06/24/16 06/24/16 20:00 23:42 00:29 04:33 Temp 98.1 96.7 Pulse 89 86 84 Resp 16 18 16 18 B/P 125/67 118/67 Pulse Ox 93 91 92 O2 Delivery Nasal Cannula Room Air Room Air O2 Flow Rate 2.00 06/24/16 07:27 Temp 97.0 Pulse 87 Resp 18 B/P 139/72 Pulse Ox 94 O2 Delivery Room Air Height (Feet): 5 Height (Inches): 9.58 Weight (Kilograms): 92.800 General General Appearance: Well Developed, No Acute Distress Respiratory (Brief) Respiratory Brief: FOUND: non-labored Cardiovascular (Brief) Cardiac: FOUND: calf easily compressible, calf soft, nontender, pedal pulses intact Surgical Site Incision: FOUND: Mepilex dressing intact, bloody drainage present (minimal, less than a dime size) Integumentary (Brief) Integumentary Brief: FOUND dry, FOUND pink, FOUND warm Psychiatric (Brief) Psychiatric Brief: FOUND: alert, no acute distress Laboratory Laboratory Laboratory Tests 06/23/16 07:17 06/24/16 04:25 Laboratory Tests 06/23/16 07:17 06/24/16 04:25 Assessment & Plan Problems: (1) Failure of total knee arthroplasty Status: Acute Qualifiers: Encounter type: initial encounter Qualified Codes: T84.018A - Broken internal joint prosthesis, other site, initial encounter; Z96.659 - Presence of unspecified artificial knee joint Assessment & Plan: Doing well with pain and PT. Will monitor the small bloody drainage and change dressing if it increases. Plan on d/c later today pending PT. Hospital Course Summary Disclaimer The visit summary below is not to be considered part of the above Progress Note. TAMEKA MALLORY MD Jun 24, 2016 08:00
[2016-06-24] MEDS: ASPIRIN *EC* 325mg TABLET PO SCH (08:59)
[2016-06-24] MEDS ORDERED: POLYETHYL.GLYCOL 3350 PACKET 17gm PO SCH (09:00)
[2016-06-24] MEDS ORDERED: LISINOPRIL 10 MG TABLET PO SCH (09:00)
[2016-06-24] MEDS: ACETAMINOPHEN 325 MG TABLET PO SCH (09:00)
[2016-06-24] MEDS ORDERED: CELECOXIB 200 MG CAPSULE PO SCH (09:00)
[2016-06-24] MEDS ORDERED: ROSUVASTATIN 20 MG TABLET PO SCH (09:00)
[2016-06-24] MEDS ORDERED: DOCUSATE SODIUM 100 MG CAPSULE PO SCH (09:00)
[2016-06-24] MEDS: INSULIN LISPRO 100 UNIT/ML SQ PRN (10:21)
--- NOTE | 2016-06-24 10:54 | NUR ---
CM THIS WORKER MET WITH PT ON THIS DATE. ALSO PRESENT WAS . PT REPORTED THAT HE PLANS TO RETURN HOME. DECLINED HOME HEALTH. PT REPORTED THAT HE HAS AT HOME TO HELP. HAS A CANE AND WALKER AT HOME IF HE NEEDS IT. PT DECIDING ON WHICH PHYSICAL THERAPY LOCATION THAT HE WOULD LIKE TO USE. THIS WORKER GAVE CONTACT INFORMATION TO PT AND ENCOURAGED TO CONTACT THIS WORKER WITH ANY NEEDS.
--- NOTE | 2016-06-24 11:03 | NUR ---
DRAINAGE PT CALLED THIS NURSE INTO THE ROOM TO ASSESS THE MEPILEX DRESSING TO THE PATIENT'S RIGHT KNEE. MINIMAL AMOUNT OF BLOOD NOTED DRIPPING TO THE PATIENT'S SOCK. THIS RN PULLED BACK THE MEPILEX DRESSING AND ASSESSED THE INCISION SITE, INCISION SITE LOOKED CLEAN, DRY, AND INTACT, WITH NO BLOOD DRAINAGE NOTED. THIS NURSE CLEANED THE PATIENT'S LEG DISTAL TO THE INCISION WITH ALCOHOL SWABS. MEPILEX DRESSING PLACED BACK ON THE KNEE AND SECURED IN PLACE. PRIMARY NURSE NOTIFIED.
[2016-06-24 12:10] VITALS: BP 127/73; PULSE 84; RESP 18; TEMP 97.6; O2SAT 96
[2016-06-24] MEDS ORDERED: OXYC5TAB84 PO (12:17)
[2016-06-24] MEDS ORDERED: ACET-2321 PO (12:17)
[2016-06-24] MEDS ORDERED: CELE200C PO (12:17)
[2016-06-24] MEDS ORDERED: POLY17PO6 PO (12:17)
[2016-06-24] MEDS ORDERED: ASPI-917 PO (12:17)
[2016-06-24] MEDS ORDERED: MAGN400O4 PO (12:17)
--- NOTE | 2016-06-24 12:24 | PDORTHOPN ---
Subjective Date DATE: 06/24/16 TIME: 12:20 Subjective Had some seeping of blood onto the Mepilex dressing with therapy. Did well with activity and is ready to go home. No pain at this time. Objective Vital Signs Vital signs Vital Signs 06/24/16 06/24/16 06/24/16 06/24/16 00:29 04:33 07:27 12:10 Temp 96.7 97.0 97.6 Pulse 86 84 87 84 Resp 16 18 18 18 B/P 118/67 139/72 127/73 Pulse Ox 91 92 94 96 O2 Delivery Room Air Room Air Room Air Room Air Height (Feet): 5 Height (Inches): 9.58 Weight (Kilograms): 92.800 General General Appearance: Well Developed, No Acute Distress Respiratory (Brief) Respiratory Brief: FOUND: non-labored Cardiovascular (Brief) Cardiac: FOUND: calf easily compressible, calf soft, nontender, pedal pulses intact Surgical Site Incision: FOUND: Mepilex dressing intact, bloody drainage present (2 small areas on the Mepilex.), other (Blood effusion in the SQ tissues just under the incision.) Integumentary (Brief) Integumentary Brief: FOUND dry, FOUND pink, FOUND warm Psychiatric (Brief) Psychiatric Brief: FOUND: alert, no acute distress Laboratory Laboratory Laboratory Tests 06/23/16 07:17 06/24/16 04:25 Laboratory Tests 06/23/16 07:17 06/24/16 04:25 Assessment & Plan Problems: (1) Failure of total knee arthroplasty Status: Acute Qualifiers: Encounter type: initial encounter Qualified Codes: T84.018A - Broken internal joint prosthesis, other site, initial encounter; Z96.659 - Presence of unspecified artificial knee joint Assessment & Plan: Did well with PT. I added several evan to the seeping sites. New sterile Mepilex applied. F/U in 2 weeks for staple removal. discharge today if the dressing remains dry. Hospital Course Summary Disclaimer The visit summary below is not to be considered part of the above Progress Note. MIKE BERNAL Jun 24, 2016 12:23
--- NOTE | 2016-06-24 12:31 | NUR ---
CM THIS WORKER MET WITH PT AGAIN ON THIS DATE. PT IS ABLE TO AFFORD THE OUT OF POCKET COST OF 94 DOLLARS FOR CELEBREX. PT AND DENIES NEEDS AT THIS TIME.
--- NOTE | 2016-06-24 12:32 | DSPDOC ---
General Date Date DATE: 06/24/16 TIME: 12:24 Attending Physician Rei Santoyo MD Admitting Physician Rei Santoyo MD Consulting Physician Admitting Diagnosis PAINFUL RIGHT TOTAL KNEE ARTHROPLASTY Discharge Diagnosis Painful right TKA. Procedures Revision of right total knee. ( femoral and spacer components only ). History of Present Illness HPI Elements Pt is one year out on a TKA. He began having increased problems at 6 months post op. Bone scan shows loosening of the right knee femoral component. Infection markers are negative. Pt admitted for surgical revision of the right knee. Hospital Course After appropriate preoperative clearance and signing of operative consent, the patient was given IV antibiotics, according to orthopedic protocol. The patient was taken to the operating room and underwent elective right total knee revision on 06/23/16. The femoral component and poly spacer were all that was revised. Following surgery, antibiotics were discontinued less than 24 hours according to joint protocol. Aspirin was initiated and SCDs added for DVT prevention. The dressing was changed and a few evan added for mild seeping from the incision. The dressing was dry, and intact at discharge. Pain control was obtained via multimodal approach. Bowel motivation addressed with scheduled and PRN medications. Early mobilization was initiated through PT services. Discharge arrangements made by a collaborative effort between the patient and Case Management. Follow-up is scheduled in 2 weeks for staple removal and at 3 weeks for recheck with Dr Santoyo. Discharge instructions given by orthopedic providers and nursing staff at discharge. Discharge condition was good. Problems: (1) Failure of total knee arthroplasty Status: Acute Assessment & Plan: Did well with PT. I added several evan to the seeping sites. New sterile Mepilex applied. F/U in 2 weeks for staple removal. Discharge today if the dressing remains dry. Cont Aspirin 325mg BID x 6 weeks for DVT prevention. Celebrex 200mg BID x 6 weeks then D/C. Tylenol QID scheduled. Oxycodone IR 5mg prn for pain. Laboratory Laboratory Tests Test 06/23/16 14:23 06/23/16 20:05 06/24/16 04:25 06/24/16 05:33 Glucometer 191mg/dL 205mg/dL 119mg/dL White Blood Count 6.5T/MM3 Red Blood Count 4.38M/MM3 Hemoglobin 13.4GM/DL Hematocrit 40.7% Mean Corpuscular Volume 92.9UM3 Mean Corpuscular Hemoglobin 30.6UUG Mean Corpuscular Hemoglobin Concent 32.9GM/DL RDW Standard Deviation 45.1FL Platelet Count 161T/MM3 Mean Platelet Volume 11.5UM3 Turbidity < 20 Sodium Level 139MEQ/L Potassium Level 5.1MEQ/L Chloride Level 109MEQ/L Carbon Dioxide Level 25MEQ/L Anion Gap 5MEQ/L Blood Urea Nitrogen 23.0MG/DL Creatinine 0.9MG/DL Glomerular Filtration Rate Calc 83 BUN/Creatinine Ratio 26RATIO Glucose Level 106MG/DL Calculated Osmolality 272MOSM/KG Calcium Level 8.7MG/DL Icterus Index < 2 Chemistry Specimen Hemolysis 72 Test 06/24/16 09:44 Glucometer 198mg/dL Home Meds Active Scripts Polyethylene Glycol 3350 (Miralax) 17 Gm Powd.pack, 17 G PO DAILY Y for CONSTIPATION, #1 BOTTLE Take 17 Grams (1 capful), by mouth, once a day. Prov:MIKE BERNAL 06/24/16 Magnesium Hydroxide (Milk of Magnesia) 400 Mg/5 Ml Oral.susp, 30 ML PO 0800 for 30 Days Prov:MIKE BERNAL 06/24/16 Oxycodone HCl (Oxycodone HCl) 5 Mg Tablet, 5-15 MG PO Q3H Y for BREAKTHROUGH PAIN, #60 TAB Prov:MIKE BERNAL 06/24/16 Celecoxib (Celebrex) 200 Mg Capsule, 200 MG PO BID for 42 Days, #84 CAP Take one tab twice a day for 6 weeks after surgery. Do not take Aleve, Advil, Ibuprofen or naproxen product while taking this medication. Prov:MIKE BERNAL 06/24/16 Aspirin *EC* (Aspirin EC) 325 Mg Tablet.dr, 325 MG PO BID, #84 TAB Take one Aspirin (325mg) twice a day for 6 weeks for blood clot prevention. Prov:MIKE BERNAL 06/24/16 Acetaminophen (Tylenol) 325 Mg Tablet, 650 MG PO QID, #60 TAB Prov:MIKE BERNAL 06/24/16 Reported Medications Aspirin *EC* (Low Dose Aspirin EC) 81 Mg Tablet.dr, 1 TAB PO DAILY, TAB 05/18/16 Empagliflozin (Jardiance) 10 Mg Tablet, 1 TAB PO DAILY 05/28/15 Rosuvastatin Calcium (Crestor) 20 Mg Tablet, 1 TAB PO 5 days a week 04/22/15 Finasteride (Finasteride) 5 Mg Tablet, 1 TAB PO HS, TAB 04/22/15 Insulin Detemir (Levemir Flextouch) 100 Unit/1 Ml Insuln.pen, 32 UNIT SQ HS, SYRINGE 04/22/15 Metformin HCl (Metformin HCl) 1,000 Mg Tablet, 1 TAB PO DAILY 04/22/15 Latanoprost (Latanoprost) 2.5 Ml Drops, 1 DROP BOTH EYES HS 04/22/15 Insulin Aspart (Novolog Flexpen) 1 Unit Pen, 10 UNIT SQ AC 04/22/15 Lisinopril (Lisinopril) 10 Mg Tablet, 10 MG PO DAILY 06/07/08 Discharge Disposition HOME Estimated Blood Loss 100.0 MIKE BERNAL Jun 24, 2016 12:30
--- NOTE | 2016-06-24 15:08 | NUR ---
DISMISSAL PATIENT DISMISSED TO HOME FOR SELF CARE TO THE MAIN [facility]OS[facility]ITAL ENTRANCE. PATIENT AMBULATORY. STABLE AND ON ROOM AIR AT TIME OF DISMISSAL. PERSONAL BELONGINGS RETURNED PRIOR TO D/C. IV CATHETER REMOVED AND IV CATHETER TIP INTACT. D/C INSTRUCTIONS REVIEWED PRIOR TO D/C. BOTH PATIENT AND VERBALIZED UNDERSTANDING. TOPICS DISCUSSED INCLUDED: NEW MEDICATIONS, S/S TO REPORT, INCISION CARE, FOLLOW UP APPOINTMENTS, AND THERAPY.
[2016-06-25] MEDS ORDERED: MILK OF MAGNESIA 30 ML SUSP PO SCH (08:00)
[2016-06-25] MEDS ORDERED: BISACODYL 10 MG SUPPOSITORY RECTALLY SCH (20:00)
== END 2016-06-24 15:08 | disposition home or self-care (01) | DRG 468 ==
LOC: SRG 06:45
PROVIDERS: ADMIT Orthopaedic Surgery; ATTEND Orthopaedic Surgery
PROC: 0SRT0J9 Replacement of Right Knee Joint, Femoral Surface with Synthetic Substitute, Cemented, Open Approach (ICD-10-PCS; 2016-06-23)
PROC: 0SPT0JZ Removal of Synthetic Substitute from Right Knee Joint, Femoral Surface, Open Approach (ICD-10-PCS; principal; 2016-06-23 09:24)
DX: T84.032A Mechanical loosening of internal right knee prosthetic joint, initial encounter (principal); Z96.651 Presence of right artificial knee joint; I10 Essential (primary) hypertension; E11.21 Type 2 diabetes mellitus with diabetic nephropathy; E11.39 Type 2 diabetes mellitus with other diabetic ophthalmic complication; E78.2 Mixed hyperlipidemia; Z79.4 Long term (current) use of insulin; Z87.891 Personal history of nicotine dependence
CPT/HCPCS: 36415; 80048; 80053; 82948; 85025; 85027; 94664; 94762